=== PATIENT | male | born 1935 | race Caucasian/White ===

== ENCOUNTER → 2016-09-26 | Outpatient (CLI) | payer BC ==
[~2016-09-26] MED LIST: AMLO5TAB2 PO; FLM4 PO; GEMF600T3 PO; METO50TA7 PO; TELM80TA PO; ZNT/150 PO
[2016-09-26 11:04] LABS: BASO % 0.5 %; BASO ABS # 0.03 K/uL (0-0.2); COMPLETE YES; EOS % 3.3 %; HEMATOCRIT 39.9 % (42-52); IG% 0.3 %; LYMPH % 15.3 %; LYMPH ABS # 0.88 K/uL (1.2-3.4); MEAN CELL VOLUME 82.8 fL (80-100); MEAN CORPUSCULAR HEMOGLOBIN 28.8 pg (25-34); MEAN CORPUSCULAR HGB CONC 34.8 g/dl (32-36); MEAN PLATELET VOLUME 9.6 fL (7.4-10.4); MONO % 13.7 %; NEUT % 66.9 %; PLATELET COUNT 308 K/uL (130-400); RED BLOOD COUNT 4.82 M/uL (4.7-6.1); WHITE BLOOD COUNT 5.76 K/uL (4.8-10.8)
[2016-09-26 11:21] LABS: ESTIMATED AVERAGE GLUCOSE 137 mg/dl; HA1C FLAG Normal (Normal)
[2016-09-26 11:38] LABS: ALT/SGPT 16 U/L (12-78); BLOOD UREA NITROGEN 27 mg/dl (7-18); BUN/CREATININE RATIO 24.8 (10-20); CALCIUM 9.3 mg/dl (8.5-10.1); CARBON DIOXIDE 22 mmol/L (21-32); CHLORIDE 111 mmol/L (98-107); CHOLESTEROL 178 mg/dl (0-200); GLUCOSE 108 mg/dl (70-99); POTASSIUM 3.9 mmol/L (3.5-5.1); SODIUM 143 mmol/L (136-145); TRIGLYCERIDES 83 mg/dl (0-150); VERY LOW DENSITY LIPOPROT CALC 17 mg/dl
[2016-09-26 11:41] LABS: ALKALINE PHOSPHATASE 87 U/L (45-117); AST/SGOT 10 U/L (15-37); CHOLESTEROL/HDL RATIO 4.7; FERRITIN 173.7 ng/ml (8.0-388.0); HDL CHOLESTEROL 38 mg/dl; LDL CHOLESTEROL CALCULATED 123 mg/dl
== END | disposition home or self-care (01) ==
LOC: C.LAB1850 10:12
PROVIDERS: ATTEND Internal Medicine
DX: E78.5 Hyperlipidemia, unspecified (principal); L50.1 Idiopathic urticaria; E11.65 Type 2 diabetes mellitus with hyperglycemia

== ENCOUNTER → 2017-03-26 | Outpatient (CLI) | payer BC ==
[2017-03-26 12:35] LABS: ALT/SGPT 40 U/L (12-78); AST/SGOT 16 U/L (15-37); BLOOD UREA NITROGEN 24 mg/dl (7-18); CALCIUM 9.2 mg/dl (8.5-10.1); CARBON DIOXIDE 23 mmol/L (21-32); CHLORIDE 111 mmol/L (98-107); CHOLESTEROL 209 mg/dl (0-200); GLUCOSE 119 mg/dl (70-99); POTASSIUM 3.8 mmol/L (3.5-5.1); SODIUM 143 mmol/L (136-145)
[2017-03-26 12:40] LABS: CHOLESTEROL/HDL RATIO 5.4; HDL CHOLESTEROL 39 mg/dl; LDL CHOLESTEROL CALCULATED 150 mg/dl; PROSTATE SPECIFIC ANTIGEN < 0.010 ng/ml (0.000-4.000); TRIGLYCERIDES 100 mg/dl (0-150); VERY LOW DENSITY LIPOPROT CALC 20 mg/dl
[2017-03-26 12:49] LABS: ESTIMATED AVERAGE GLUCOSE 143 mg/dl; HA1C FLAG Normal (Normal)
[2017-03-26 13:39] LABS: RATIO 37.7 mcg/mg (0-30.0)
== END | disposition home or self-care (01) ==
LOC: C.LAB1850 10:10
PROVIDERS: ATTEND Internal Medicine
DX: E11.9 Type 2 diabetes mellitus without complications (principal); E78.5 Hyperlipidemia, unspecified; C61 Malignant neoplasm of prostate

== ENCOUNTER → 2017-09-30 | Outpatient (CLI) | payer BC ==
[2017-09-30 10:31] LABS: HEMOGLOBIN A1C 6.4 % (4.5-5.6)
[2017-09-30 10:51] LABS: ALT/SGPT 22 U/L (12-78); AST/SGOT 17 U/L (15-37); BLOOD UREA NITROGEN 21 mg/dl (7-18); CALCIUM 9.1 mg/dl (8.5-10.1); CARBON DIOXIDE 25 mmol/L (21-32); CHOLESTEROL 198 mg/dl (0-200); CREATININE 1.02 mg/dl (0.60-1.40); GLUCOSE 123 mg/dl (70-99); POTASSIUM 3.8 mmol/L (3.5-5.1); SODIUM 142 mmol/L (136-145)
[2017-09-30 10:54] LABS: LDL CHOLESTEROL CALCULATED 143 mg/dl
== END | disposition home or self-care (01) ==
LOC: C.LAB1850 09:36
PROVIDERS: ATTEND Internal Medicine
DX: E11.9 Type 2 diabetes mellitus without complications (principal); E78.5 Hyperlipidemia, unspecified

== ENCOUNTER → 2018-04-01 | Outpatient (CLI) | payer BC ==
[~2018-04-01] MED LIST changes: -METO50TA7 PO; +METO50TA8 PO
[2018-04-01 12:39] LABS: ALT/SGPT 22 U/L (12-78); AST/SGOT 15 U/L (15-37); BLOOD UREA NITROGEN 22 mg/dl (7-18); CALCIUM 9.3 mg/dl (8.5-10.1); CARBON DIOXIDE 28 mmol/L (21-32); CHOLESTEROL 205 mg/dl (0-200); CREATININE 1.18 mg/dl (0.60-1.40); GLUCOSE 133 mg/dl (70-99); LDL CHOLESTEROL CALCULATED 148 mg/dl; POTASSIUM 3.9 mmol/L (3.5-5.1); SODIUM 141 mmol/L (136-145)
[2018-04-01 12:42] LABS: HEMOGLOBIN A1C 6.9 % (4.5-5.6)
== END | disposition home or self-care (01) ==
LOC: C.LAB1850 10:25
PROVIDERS: ATTEND Internal Medicine
DX: E78.5 Hyperlipidemia, unspecified (principal); E11.9 Type 2 diabetes mellitus without complications; R39.9 Unspecified symptoms and signs involving the genitourinary system

== ENCOUNTER 2022-07-27 11:10 | Inpatient (IN) ==
[2022-07-27 11:44] LABS: Basophils # (auto) 0.03 K/uL (0-0.2); Basophils % (auto) 0.4 %; Eosinophils # (auto) 0.12 K/uL (0-0.50); Eosinophils % (auto) 1.6 %; Hematocrit (blood only) 40.9 % (40.1-51.0); Hemoglobin 14.1 g/dl (14.0-18.0); Immature Granulocytes # (auto) 0.01 K/uL (0.00-0.02); Immature Granulocytes % (auto) 0.1 %; Lymphocytes # (auto) 1.32 K/uL (1.2-3.4); Lymphocytes % (auto) 17.9 %; Mean Corpuscular Hemoglobin 30.8 pg (25.0-34.0); Mean Corpuscular Hgb Conc 34.5 g/dL (32.0-36.0); Mean Corpuscular Volume 89.3 fL (80.0-100.0); Mean Platelet Volume 10.2 fL (9.4-12.4); Monocytes # (auto) 0.91 K/uL (0.24-0.82); Monocytes % (auto) 12.3 %; Neutrophils % (auto) 67.7 %; Platelet Count 286 K/uL (130-400); RDW Standard Deviation 42.5 fL (36.4-46.3); Red Blood Count 4.58 M/uL (4.63-6.08); White Blood Count 7.39 K/ul (4.8-10.8)
[2022-07-27 11:44] LABS: iSTAT Creatinine 1.2 mg/dl (0.6-1.3); iSTAT Hemoglobin 14.3 g/dl (14.0-18.0); iSTAT Ionized Calcium 1.22 mmol/l (1.12-1.32); iSTAT Potassium 3.8 mmol/L (3.3-5.0)
--- NOTE | 2022-07-27 11:49 | Emergency Department Note ---
History of Present Illness General Chief complaint: Stroke/CVA Symptoms Stated complaint: SLURRED SPEACH, WEAKNESS IN RIGHT ARM, Time Seen by Provider: 07/27/22 11:25 History of Present Illness 86-year-old male presents to the ED with a chief complaint of slurred speech and right-sided facial droop. The patient presents with his female friend. She does not live with him. She states that she first noticed that he was slurring speech on . Today she met with him and noticed that he seemed to be slurring his speech more and she noticed a right-sided facial droop. He also went to he bit his tongue. The patient seemed a little uncoordinated with his right arm as well, per the friend. The patient states that he has been getting around the house okay. He lives alone. He denies falling or walking into [place]. Denies any visual changes. No additional complaints this time Home Medications Medication Instructions Recorded Confirmed Type cholecalciferol (vitamin D3) 125 125 mcg PO DAILY 10/25/21 02/03/22 History mcg (5,000 unit) tablet (Vitamin D3) trospium 20 mg tablet 20 mg PO BID #180 tabs 04/15/22 Rx amlodipine 5 mg tablet 5 mg PO QAM #90 tabs 07/07/22 Rx gemfibrozil 600 mg tablet 600 mg PO BID #180 tabs 07/07/22 Rx metoprolol tartrate 50 mg tablet 50 mg PO BID #180 tabs 07/07/22 Rx telmisartan 80 mg tablet 80 mg PO QAM #90 tabs 07/07/22 Rx tamsulosin 0.4 mg capsule 0.4 mg PO QAM 07/27/22 07/27/22 History vitamin B12 0.5 mg-folic acid 1 mg 1 tab PO DAILY 07/27/22 07/27/22 History tablet Allergies Allergy/AdvReac Type Severity Reaction Status Date / Time clopidogrel Allergy Intermediate HIVES Verified 02/03/22 10:20 Iodinated Contrast Media Allergy Intermediate HIVES Verified 02/03/22 10:20 HMG-CoA-R Inhibitors Allergy Unknown PT NOT SURE Uncoded 02/03/22 10:20 Past Med/Surg History Medical History Elevated hemoglobin A1c 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 Urinary symptom or sign Surgical History History of colonoscopy History of coronary artery stent placement EARLY History of left cataract extraction History of prostate surgery History of tonsillectomy S/P hernia repair HX MULTIPLE Family History Father Myocardial infarction Diabetes Heart disease Hypertension Mother Pancreatic cancer Sister Poliomyelitis Denies family history of Colon cancer Ovarian cancer Prostate cancer Breast cancer Social History Smoking Status: Never smoker Second Hand Exposure: No; Hx Alcohol Use: Yes (RARE) Alcohol type: beer Hx Substance Use: No Preferred Language: Telugu Communication Ability: Effective Visual Impairment: No Limitations Hearing Ability: Normal Utility Sales Representative Required: No Beliefs That Will Affect Care: None marital status: Single Current Living Situation: Alone current occupational status: retired Feels Safe at Home: Yes Childhood Exposure to Second-Hand Smoke: Yes Dental Care, Regularly: Yes Physical Activity Frequency: 3-4 Times per Week Seatbelt Use: always Sunscreen Use: No Assistive Devices: Glasses Review of Systems A total of 10 systems reviewed and were otherwise negative Physical Exam Vital Signs Vital Signs - 24 hr 07/27/22 11:14 07/27/22 12:01 07/27/22 12:12 Temperature 36.4 C L Temperature Source Oral Pulse Rate 83 Pulse Rate [Apical] 83 Pulse Rate from SpO2 Sensor Pulse Rhythm Regular Pulse Strength Normal Respiratory Rate 16 19 Respiratory Effort / Characteristics Non-Labored Spontaneous Respiratory Depth Normal Respiratory Pattern Regular Blood Pressure 176/97 H Blood Pressure [Left Arm] 164/104 H Blood Pressure Mean 123 Blood Pressure Mean [Left Arm] 124 Blood Pressure Position Sitting Pulse Oximetry 94 93 Oxygen Delivery Method Room Air Room Air Room Air Sepsis Recent Fever Within 48 Hours No Sepsis New/Unexplained Change in Mental Status No Sepsis Action Taken by Nursing No Action Required 07/27/22 11:26 07/27/22 11:26 07/27/22 11:30 Temperature Temperature Source Pulse Rate 86 86 Pulse Rate [Apical] Pulse Rate from SpO2 Sensor Pulse Rhythm Pulse Strength Respiratory Rate 20 25 H Respiratory Effort / Characteristics Respiratory Depth Respiratory Pattern Blood Pressure 177/120 H Blood Pressure [Left Arm] Blood Pressure Mean 139 Blood Pressure Mean [Left Arm] Blood Pressure Position Pulse Oximetry Oxygen Delivery Method Sepsis Recent Fever Within 48 Hours Sepsis New/Unexplained Change in Mental Status Sepsis Action Taken by Nursing 07/27/22 11:58 07/27/22 12:15 07/27/22 12:15 Temperature Temperature Source Pulse Rate 80 Pulse Rate [Apical] Pulse Rate from SpO2 Sensor 83 Pulse Rhythm Pulse Strength Respiratory Rate 16 19 Respiratory Effort / Characteristics Respiratory Depth Respiratory Pattern Blood Pressure 158/94 H Blood Pressure [Left Arm] Blood Pressure Mean 115 Blood Pressure Mean [Left Arm] Blood Pressure Position Pulse Oximetry 95 Oxygen Delivery Method Room Air Sepsis Recent Fever Within 48 Hours Sepsis New/Unexplained Change in Mental Status Sepsis Action Taken by Nursing CONSTITUTIONAL/VITAL SIGNS: Reviewed / noted above. GENERAL: Non-toxic in appearance. INTEGUMENTARY: Warm, dry, and [place]. HEAD: Normocephalic. EYES: without scleral icterus or trauma. ENT/OROPHARYNX: clear and moist. Contusion to the right side of tongue. LYMPHADENOPATHY/NECK: Is supple without lymphadenopathy or meningismus. RESPIRATORY: Clear to auscultation bilaterally. No increased work of breathing. CARDIOVASCULAR: Regular rate and irregular rhythm. GI/ABDOMEN: Soft and nontender. No organomegaly or pulsatile mass. EXTREMITIES: Warm and well perfused. BACK: No CVA tenderness. NEUROLOGICAL: Intact without focal deficits with exception of the right lower facial droop. PSYCHIATRIC: normal affect. MUSCULOSKELETAL: Normally developed with good muscle tone. TRIAGE NURSING DOCUMENTATION REVIEWED. Course Administered Medications Discontinued Medications Ioversol (Optiray 320 500ml) 120 ml IV ONCE ONE Stop: 07/27/22 11:55 Last Admin: 07/27/22 11:54 Dose: 120 ml Documented By: JHOAN Critical Care Time Critical Care Time: Yes Total Critical Care Time: 30 I have personally spent 30 minutes of critical care time in the direct management of this patient. This includes bedside care, interpretation of diagnostic studies, and testing, discussion with consultants, patient, and family members, and other required patient management activities. This 30 minutes is in excess of all separately billable procedures. Medical Decision Making Differential Diagnosis Differential includes acute coronary syndrome, myocardial infarction, CVA, TIA, anemia, infection, pneumonia, UTI, pyelonephritis, poor nutrition, dehydration, electrolyte disturbance,hypoglycemia. Medical Records Attestation: I reviewed the patient's medical records. Home Medications Current Medication List: was personally reviewed by me Laboratory Data Attestation: I reviewed the patient's lab results. Result diagrams: 07/27/22 11:29 07/27/22 11:29 Lab Results 07/27/22 07/27/22 07/27/22 Range/Units 11:24 11:29 11:29 WBC 7.39 (4.8-10.8) K/ul RBC 4.58 L (4.63-6.08) M/uL Hgb 14.1 (14.0-18.0) g/dl POC Hgb (14.0-18.0) g/dl Hct 40.9 (40.1-51.0) % POC Hct (42-52) % MCV 89.3 (80.0-100.0) fL MCH 30.8 (25.0-34.0) pg MCHC 34.5 (32.0-36.0) g/dL RDW Std Deviation 42.5 (36.4-46.3) fL RDW Coeff of Macho 13.0 (11.5-14.5) % Plt Count 286 (130-400) K/uL MPV 10.2 (9.4-12.4) fL Immature Gran % (Auto) 0.1 % Neut % (Auto) 67.7 % Lymph % (Auto) 17.9 % [place] % (Auto) 12.3 % Eos % (Auto) 1.6 % Baso % (Auto) 0.4 % Neut # (Auto) 5.00 (1.4-6.5) K/uL Lymph # (Auto) 1.32 (1.2-3.4) K/uL [place] # (Auto) 0.91 H (0.24-0.82) K/uL Eos # (Auto) 0.12 (0-0.50) K/uL Baso # (Auto) 0.03 (0-0.2) K/uL Immature Gran # (Auto) 0.01 (0.00-0.02) K/uL PT 10.9 (9.0-12.0) Seconds INR 1.0 (0.9-1.1) APTT 23.0 (21.0-31.0) Seconds PTT Ratio 0.8 POC Sodium (135-144) mmol/L Sodium (136-145) mmol/L POC Potassium (3.3-5.0) mmol/L Potassium (3.5-5.1) mmol/L POC Chloride (101-112) mmol/L Chloride (98-107) mmol/L Carbon Dioxide (21-32) mmol/L POC Total CO2 (24-31) mmol/L Anion Gap (3-11) POC Anion Gap (16-25) mmol/L POC BUN (7-18) mg/dl BUN (6-23) mg/dl Creatinine (0.6-1.4) mg/dl POC Creatinine (0.6-1.3) mg/dl Est Cr Clr Drug Dosing Est GFR ( Amer) ml/min Est GFR (Non-Af Amer) ml/min BUN/Creatinine Ratio (10-20) Glucose (70-99(Fasting)) mg/dl POC Glucose 166 H (70-99) mg/dl POC Glucose (other) (70-99) mg/dl Calcium (8.5-10.1) mg/dl POC Ioniz Calcium Ashley (1.12-1.32) mmol/l Magnesium (1.7-2.4) mg/dl Total Bilirubin (0.2-1.0) mg/dl AST (13-39) U/L ALT (7-52) U/L Alkaline Phosphatase (34-104) U/L Troponin I High Sens (0-20) pg/ml Total Protein (6.0-8.3) gm/dl Albumin (3.4-5.0) gm/dl Globulin (2.5-4.0) gm/dl Albumin/Globulin Ratio (0.9-2) 07/27/22 07/27/22 Range/Units 11:29 11:32 WBC (4.8-10.8) K/ul RBC (4.63-6.08) M/uL Hgb (14.0-18.0) g/dl POC Hgb 14.3 (14.0-18.0) g/dl Hct (40.1-51.0) % POC Hct 42 (42-52) % MCV (80.0-100.0) fL MCH (25.0-34.0) pg MCHC (32.0-36.0) g/dL RDW Std Deviation (36.4-46.3) fL RDW Coeff of Macho (11.5-14.5) % Plt Count (130-400) K/uL MPV (9.4-12.4) fL Immature Gran % (Auto) % Neut % (Auto) % Lymph % (Auto) % [place] % (Auto) % Eos % (Auto) % Baso % (Auto) % Neut # (Auto) (1.4-6.5) K/uL Lymph # (Auto) (1.2-3.4) K/uL [place] # (Auto) (0.24-0.82) K/uL Eos # (Auto) (0-0.50) K/uL Baso # (Auto) (0-0.2) K/uL Immature Gran # (Auto) (0.00-0.02) K/uL PT (9.0-12.0) Seconds INR (0.9-1.1) APTT (21.0-31.0) Seconds PTT Ratio POC Sodium 141 (135-144) mmol/L Sodium 140 (136-145) mmol/L POC Potassium 3.8 (3.3-5.0) mmol/L Potassium 3.9 (3.5-5.1) mmol/L POC Chloride 105 (101-112) mmol/L Chloride 106 (98-107) mmol/L Carbon Dioxide 25 (21-32) mmol/L POC Total CO2 23 L (24-31) mmol/L Anion Gap 9 (3-11) POC Anion Gap 17.0 (16-25) mmol/L POC BUN 26 H (7-18) mg/dl BUN 27 H (6-23) mg/dl Creatinine 1.19 (0.6-1.4) mg/dl POC Creatinine 1.2 (0.6-1.3) mg/dl Est Cr Clr Drug Dosing Not Reportable Est GFR ( Amer) 64.6 ml/min Est GFR (Non-Af Amer) 55.8 ml/min BUN/Creatinine Ratio 22.7 H (10-20) Glucose 164 H (70-99(Fasting)) mg/dl POC Glucose (70-99) mg/dl POC Glucose (other) 167 H (70-99) mg/dl Calcium 9.4 (8.5-10.1) mg/dl POC Ioniz Calcium Ashley 1.22 (1.12-1.32) mmol/l Magnesium 1.9 (1.7-2.4) mg/dl Total Bilirubin 0.8 (0.2-1.0) mg/dl AST 20 (13-39) U/L ALT 13 (7-52) U/L Alkaline Phosphatase 46 (34-104) U/L Troponin I High Sens 1792.0 H* (0-20) pg/ml Total Protein 6.8 (6.0-8.3) gm/dl Albumin 4.3 (3.4-5.0) gm/dl Globulin 2.5 (2.5-4.0) gm/dl Albumin/Globulin Ratio 1.7 (0.9-2) Imaging Data Radiologist's Impression: Chest X-Ray 07/27/22 11:26 XR chest 1V portable CLINICAL HISTORY: Stroke Like Symptoms TECHNIQUE: Single frontal radiograph of the chest was obtained. Comparison: None available at the time of this dictation. FINDINGS: No lines and tubes are seen. Calcified aortic knob is seen. The lungs are clear. No evidence of pleural effusion or pneumothorax. IMPRESSION: No acute chest disease. ACT 112: Negative or not required by law. Electronically signed by: Rc Hill M.D. 07/27/2022 12:[address] 07/27/22 11:26 CT angio neck with con, CT angio head w con, CT head/brain wo con CLINICAL HISTORY: Stroke Like Symptoms TECHNIQUE: Contiguous axial CT images of the head were acquired from the base of the skull to the vertex without intravenous contrast administration. CT angiography of the head and neck was performed following intravenous administr ation of iodinated contrast. Coronal and sagittal MIPS were obtained from the axial data set and were submitted for review. Automated dose lowering techniques and/or adjustment according to patient size were utilized for this examination. All measurements were calculated based on NASCET criteria. CT DOSE: 1269.26 mGy.cm Comparison: None available at the time of this dictation. FINDINGS: CT head: There is no acute intracranial hemorrhage or evidence of acute territorial infarction. No shift of the midline structures, mass effect, or extra-axial abnormalities are shown. Lungs and soft tissues are unremarkable. CTA Neck: A 3 vessel aortic arch is shown. There is no significant atherosclerotic plaque in the aortic arch or the origins of the innominate, left common carotid, and left subclavian arteries. There is mild calcified ath erosclerotic plaque at the bifurcation of the bilateral common carotid arteries without hemodynamically significant flow stenosis. There is no dissection present. No hemodynamically significant stenosis is seen at the origin of vertebral arteries. The left vertebral artery is dominant. CTA Head: The anterior and posterior cerebral circulations are patent. Multifocal stenosis of the vertebral arteries are seen, left greater than right, which however do not appear to be hemodynamically significant. There is atherosclerosis of the carotid siphons and narrowing of the right supraclinoid carotid artery. IMPRESSION: 1. No acute intracranial hemorrhage, evidence of acute territorial infarction, or other acute intracranial disease process. 2. No occlusion, hemodynamically significant stenosis, or dissection in the major cervical arteries. 3. 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 There is narrowing of the right supraclinoid internal carotid artery which may represent borderline hemodynamic stenosis. Assessment of stenosis of the internal carotid arteries is based on NASCET criteria. ACT 112: Negative or not required by law. Electronically signed by: Rc Hill M.D. 07/27/2022 12:16 PM Head CTA 07/27/22 11:38 CT angio neck with con, CT angio head w con, CT head/brain wo con CLINICAL HISTORY: Stroke Like Symptoms TECHNIQUE: Contiguous axial CT images of the head were acquired from the base of the skull to the vertex without intravenous contrast administration. CT angiography of the head and neck was performed following intravenous administra tion of iodinated contrast. Coronal and sagittal MIPS were obtained from the axial data set and were submitted for review. Automated dose lowering techniques and/or adjustment according to patient size were utilized for this examination. All measurements were calculated based on NASCET criteria. CT DOSE: 1269.26 mGy.cm Comparison: None available at the time of this dictation. FINDINGS: CT head: There is no acute intracranial hemorrhage or evidence of acute territorial infarction. No shift of the midline structures, mass effect, or extra-axial abnormalities are shown. Lungs and soft tissues are unremarkable. CTA Neck: A 3 vessel aortic arch is shown. There is no significant atherosclerotic plaque in the aortic arch or the origins of the innominate, left common carotid, and left subclavian arteries. There is mild calcified athe rosclerotic plaque at the bifurcation of the bilateral common carotid arteries without hemodynamically significant flow stenosis. There is no dissection present. No hemodynamically significant stenosis is seen at the origin of vertebral arteries. The left vertebral artery is dominant. CTA Head: The anterior and posterior cerebral circulations are patent. Multifocal stenosis of the vertebral arteries are seen, left greater than right, which however do not appear to be hemodynamically significant. There is atherosclerosis of the carotid siphons and narrowing of the right supraclinoid carotid artery. IMPRESSION: 1. No acute intracranial hemorrhage, evidence of acute territorial infarction, or other acute intracranial disease process. 2. No occlusion, hemodynamically significant stenosis, or dissection in the major cervical arteries. 3. 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 There is narrowing of the right supraclinoid internal carotid artery which may represent borderline hemodynamic stenosis. Assessment of stenosis of the internal carotid arteries is based on NASCET criteria. ACT 112: Negative or not required by law. Electronically signed by: Rc Hill M.D. 07/27/2022 12:16 PM Neck CTA 07/27/22 11:38 CT angio neck with con, CT angio head w con, CT head/brain wo con CLINICAL HISTORY: Stroke Like Symptoms TECHNIQUE: Contiguous axial CT images of the head were acquired from the base of the skull to the vertex without intravenous contrast administration. CT angiography of the head and neck was performed following intravenous administrat ion of iodinated contrast. Coronal and sagittal MIPS were obtained from the axial data set and were submitted for review. Automated dose lowering techniques and/or adjustment according to patient size were utilized for this examination. All measurements were calculated based on NASCET criteria. CT DOSE: 1269.26 mGy.cm Comparison: None available at the time of this dictation. FINDINGS: CT head: There is no acute intracranial hemorrhage or evidence of acute territorial infarction. No shift of the midline structures, mass effect, or extra-axial abnormalities are shown. Lungs and soft tissues are unremarkable. CTA Neck: A 3 vessel aortic arch is shown. There is no significant atherosclerotic plaque in the aortic arch or the origins of the innominate, left common carotid, and left subclavian arteries. There is mild calcified ather osclerotic plaque at the bifurcation of the bilateral common carotid arteries without hemodynamically significant flow stenosis. There is no dissection present. No hemodynamically significant stenosis is seen at the origin of vertebral arteries. The left vertebral artery is dominant. CTA Head: The anterior and posterior cerebral circulations are patent. Multifocal stenosis of the vertebral arteries are seen, left greater than right, which however do not appear to be hemodynamically significant. There is atherosclerosis of the carotid siphons and narrowing of the right supraclinoid carotid artery. IMPRESSION: 1. No acute intracranial hemorrhage, evidence of acute territorial infarction, or other acute intracranial disease process. 2. No occlusion, hemodynamically significant stenosis, or dissection in the major cervical arteries. 3. 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 There is narrowing of the right supraclinoid internal carotid artery which may represent borderline hemodynamic stenosis. Assessment of stenosis of the internal carotid arteries is based on NASCET criteria. ACT 112: Negative or not required by law. Electronically signed by: Rc Hill M.D. 07/27/2022 12:16 PM ECG Data Attestation: I personally reviewed and interpreted this ECG as follows: Additional Comments: Twelve-lead EKG: Per my interpretation shows atrial fibrillation at a rate of 86 with a PVC. No ST elevation. Normal QTC MDM Narrative 86-year-old male presents with right-sided facial droop and slurred speech as well as a contusion to the right tongue. Symptoms started likely on . Patient has a twelve-lead EKG that shows A. fib. He denies any history of such. Does not take any anticoagulation. Normally does not take aspirin but did take an aspirin recently today. CT scan of the brain without contrast and CT angiogram of the head and neck did not show any significant abnormalities. Troponin is elevated. No acute ST elevations on EKG and no chest pains to report. The patient was started on IV heparin here. He will be seen by the hospitalist for further evaluation and care. He did take aspirin this morning. Impression & Plan Acute CVA (cerebrovascular accident), Atrial fibrillation, new onset, Elevated troponin Discharge Plan Visit Data Chief Complaint: Stroke/CVA Symptoms Stated Complaint: SLURRED SPEACH, WEAKNESS IN RIGHT ARM, ED Provider: Riaz Peck Discharge Problem: Acute CVA (cerebrovascular accident), Atrial fibrillation, new onset, Elevated troponin Patient Disposition: Being Evaluated by Hospitalist Forms Stand Alone Forms: My [facility] [employer] Prescriptions Prescriptions: No Action trospium 20 mg tablet 20 mg PO BID Qty: 180 3RF amlodipine 5 mg tablet 5 mg PO QAM Qty: 90 3RF gemfibrozil 600 mg tablet 600 mg PO BID Qty: 180 3RF metoprolol tartrate 50 mg tablet 50 mg PO BID Qty: 180 3RF telmisartan 80 mg tablet 80 mg PO QAM Qty: 90 2RF Gemtesa 75 mg tablet 75 mg PO DAILY Qty: 90 3RF cholecalciferol (vitamin D3) [Vitamin D3] 125 mcg (5,000 unit) Tablet 125 mcg PO DAILY Referrals Referrals: ProDon MD [Primary Care Provider] -
[2022-07-27] MEDS ORDERED: OPTIRAY 320 500ml IV ONE (11:54)
[2022-07-27 11:55] LABS: Partial Thromboplastin Ratio 0.8; Prothrombin Time 10.9 Seconds (9.0-12.0)
[2022-07-27 12:04] LABS: Alanine Aminotransferase 13 U/L (7-52); Albumin Globulin Ratio 1.7 (0.9-2); Albumin Level 4.3 gm/dl (3.4-5.0); Alkaline Phosphatase 46 U/L (34-104); Anion Gap 9 (3-11); Aspartate Aminotransferase 20 U/L (13-39); BUN Creatinine Ratio 22.7 (10-20); Bilirubin,Total 0.8 mg/dl (0.2-1.0); Blood Urea Nitrogen 27 mg/dl (6-23); Calcium 9.4 mg/dl (8.5-10.1); Carbon Dioxide 25 mmol/L (21-32); Chloride 106 mmol/L (98-107); Est GFR (African American) 64.6 ml/min; Est GFR (Non-African American) 55.8 ml/min; Globulin 2.5 gm/dl (2.5-4.0); Glucose 164 mg/dl (70-99(Fasting)); Magnesium 1.9 mg/dl (1.7-2.4); Potassium 3.9 mmol/L (3.5-5.1); Sodium 140 mmol/L (136-145); Total Protein 6.8 gm/dl (6.0-8.3)
--- NOTE | 2022-07-27 12:10 | Electrocardiogram Report ---
Test Reason : Blood Pressure : / mmHG Vent. Rate : 086 BPM Atrial Rate : 104 BPM P-R Int : 000 ms QRS Dur : 098 ms QT Int : 336 ms P-R-T Axes : 000 000 133 degrees QTc Int : 402 ms Atrial fibrillation with premature ventricular or aberrantly conducted complexes Minimal voltage criteria for LVH, may be normal variant Poor R wave progression, consider anterior TX vs. lead placement vs. LVH Diffuse Nonspecific T wave abnormality Abnormal ECG When compared with ECG of 29-OCT-2006 09:50, Sinus rhythm no longer present HR has increased by 30 bpm Diffuse Nonspecific T wave abnormality now present Confirmed by Sonido Berrios ([id number]) on 07/27/2022 12:09:32 PM Referred By: REFERRED SELF Confirmed By:Sonido Berrios
--- NOTE | 2022-07-27 12:18 | CT Scan Report ---
CT angio neck with con, CT angio head w con, CT head/brain wo con CLINICAL HISTORY: Stroke Like Symptoms TECHNIQUE: Contiguous axial CT images of the head were acquired from the base of the skull to the pamela stefany without intravenous contrast administration. CT angiography of the head and neck was performed f ollowing intravenous administration of iodinated contrast. Coronal and sagittal MIPS were obtained fr om the axial data set and were submitted for review. Automated dose lowering techniques and/or adjus tment according to patient size were utilized for this examination. All measurements were calculated based on NASCET criteria. CT DOSE: 1269.26 mGy.cm Comparison: None available at the time of this dictation. FINDINGS: CT head: There is no acute intracranial hemorrhage or evidence of acute territorial infarction. No sh ift of the midline structures, mass effect, or extra-axial abnormalities are shown. Lungs and soft tissues are unremarkable. CTA Neck: A 3 vessel aortic arch is shown. There is no significant atherosclerotic plaque in the aor tic arch or the origins of the innominate, left common carotid, and left subclavian arteries. There is mild calcified atherosclerotic plaque at the bifurcation of the bilateral common carotid arteries without hemodynamically significant flow stenosis. There is no dissection present. No hemodynamicall y significant stenosis is seen at the origin of vertebral arteries. The left vertebral artery is desirae nant. CTA Head: The anterior and posterior cerebral circulations are patent. Multifocal stenosis of the ve rtebral arteries are seen, left greater than right, which however do not appear to be hemodynamically significant. There is atherosclerosis of the carotid siphons and narrowing of the right supraclinoid carotid artery. IMPRESSION: 1. No acute intracranial hemorrhage, evidence of acute territorial infarction, or other acute intrac ranial disease process. 2. No occlusion, hemodynamically significant stenosis, or dissection in the major cervical arteries. 3. 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 There is narrowing of the right supraclinoid interna l carotid artery which may represent borderline hemodynamic stenosis. Assessment of stenosis of the internal carotid arteries is based on NASCET criteria. ACT 112: Negative or not required by law. Electronically signed by: Rc Hill M.D. 07/27/2022 12:16 PM
--- NOTE | 2022-07-27 12:22 | XRay Report ---
XR chest 1V portable CLINICAL HISTORY: Stroke Like Symptoms TECHNIQUE: Single frontal radiograph of the chest was obtained. Comparison: None available at the time of this dictation. FINDINGS: No lines and tubes are seen. Calcified aortic knob is seen. The lungs are clear. No evidence of pleur al effusion or pneumothorax. IMPRESSION: No acute chest disease. ACT 112: Negative or not required by law. Electronically signed by: Rc Hill M.D. 07/27/2022 12:21 PM
[2022-07-27] MEDS ORDERED: Heparin IV Adult Wt-Based Standard WITH Bolus Protocol IV STA (12:24)
--- NOTE | 2022-07-27 12:26 | History & Physical Report ---
Date of Service July 27, 2022 Assessment & Plan (1) Acute CVA (cerebrovascular accident): Plan: CVA, right-sided facial droop and improving initial right an/syq 13 nav/c2 operator weakness TNKase not indicated, symptom onset more than 48 hours before admission. Right an/syq 13 nav/c2 operator strength improving/improved at time of assessment. - CTA H/N: 1. No acute intracranial hemorrhage, evidence of acute territorial infarction, or other acute intracranial disease process. 2. No occlusion, hemo dynamically significant stenosis, or dissection in the major cervical arteries. 3. 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 There is narrowing of the right supraclinoid internal carotid artery which may represent borderline hemodynamic stenosis. CT-H: There is no acute intracranial hemorrhage or evidence of acute territorial infarction. No shift of the midline structures, mass effect, or extra-axial abnormalities are shown. - Prior stenosis ipsilateral to stroke sx, low suspicious for symptomatic carotid dz - CXR: No acute chest disease. Carotid Doppler 03/06/2022: Less than 50% stenosis of right and left ICA, greater than 50% stenosis of right external carotid. Anterograde flow bilaterally and vertebrals EKG: A. fib with PVCs, rate 86, QTc 402, T wave inversions in lateral leads w ithout ST segment changes Creatinine with normal baseline, 1.19 on admission - Pt allergic to plaavix (hives), but has tolerated aspirin. Took 2 full dose aspirin prior to admission. Resume aspirin 81 mg tomorrow New Onset Afib - [id number] 5 points. High risk. Recommend anticoagulation - COntinue metoprolol, rate controlled at admit - Echo pending with stroke eval as above - Pt is with symptom onset >48 hours before presentation. Started on heparin in ER. Will follow for bleeding overnight, transition to DOAC therapy 9 AM 07/28 if otherwise well - Risk of bleeding/hemmhoragic conversion vs risk of stroke discussed. Shared decision making patient agreeable to long-term anticoagulation Echo pending Elevated troponin Troponin is elevated to 1792 on admission, patient has had no clinical chest pain preceding this, and has no chest pain at time of assessment ? Demand in the setting of new A. fib EKG without ST segment changes, nonspecific lateral T wave inversions are pre sent Rate control, 500 cc NSS gentle support given for tacky mucous membranes and contracted BUN/creatinine ratio 22, trend troponin Echo pending Hypertension Continue amlodipine 5 mg daily Continue metoprolol 50 mg tartrate twice daily Continue telmisartan 80 mg p.o. every morning Type II DM Patient denies history of this in self, endorses in father. Chart does have a history of DM, glucose is 166 on admission A1c 6.7 01/30/2022 Diet controlled at home, will add basal bolus weight-based SSI while inpatient. Goal [id number] Overactive bladder Continue trospium, for background Hyperlipidemia Gemfibrozil 600 mg twice daily LDL previously less than 100, 139 02/02, repeat pending Patient is not sure if he has been statin intolerant in the past, reacted to Plavix but is not sure why he was recommended to be on this. Has discussed a statin trial as outpatient, is willing to try this with monitoring. 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 We will start atorvastatin 40 mg, if rash develops add methylprednisolone/Benadryl/cetirizine and discontinue statin Gemfibrozil discontinued given risk of reaction with switch to statin Disposition: Telemetry for stroke and cardiac eval Diet: Heart healthy, carb consistent once passed dysphagia screen CODE STATUS: Full code DVT prophylaxis: Anticoagulated (2) Elevated troponin: (3) Atrial fibrillation, new onset: (4) Radiation colitis: (5) Hyperglycemia: (6) Idiopathic urticaria: (7) Hypertension: History of Present Illness Primary Care Provider: Don Yeager MD Mario is an 86-year-old male with a past medical history of prostate cancer, radiation colitis, hypertension, type 2 diabetes mellitus, hyperglycemia, idiopathic urticaria who presented to [facility] as a stroke alert for slurred speech, right arm weakness. Patient has had speech slurring of approximately 2-3 days, was noticed by a friend who thinks his speech has been slurred more with a slight right-sided facial droop. Right upper arm coordination seems more poor than usual. Patient is outside of TNKase window. Mario is seen at the bedside with his friend and surrogate decision maker Abbey. He reports he feels he was in his usual state of health until last when he developed some difficulty speaking. Over and Thursday his speech continued to be off and seemed a little bit worse. Abbey also noticed that he had some right-sided facial droop. This continued into Thursday and Thursday and he noticed some poor coordination with his an/syq 13 nav/c2 operator and slightly reduced strength in his right arm without any numbness/tingling or sensory deficits. This prompted him to come to the ER for evaluation. During this timeframe he reports he has had some intermittent shortness of breath which does seem to be a little bit worse with exertion, but resolves with rest and which is not associated with any chest pain/chest pressure/palpitations. He has not been ill lately, and denies fever, chills, sweats, lightheadedness, dizziness, syncope, presyncope, nausea, vomiting, Dr. Caceres, constipation. He has not had any falls, and feels he is able to walk normally. He has no history of [place] or CVA, does have a history of hyperlipidemia and hypertension. He reports that he had an allergy to Plavix many years ago, but is not sure why he was prescribed Plavix in the first place. Does note that he has high blood pressure, but confirms he has never had a heart attack, stents, or stroke. He is able to tolerate aspirin and took 2 full dose aspirin before coming to the hospital this morning. He thinks that he may have had a reaction to a statin in the past but is not sure. He reports he takes gemfibrozil for lipids, and has been open to a statin trial but has not tried this as an outpatient. He is a former smoker, from age 17 until about 70s he was a 2 to 3 pack a day smoker. No tobacco use in the last decade. Does not use a vape or other tobacco products. Denies alcohol use. Denies recreational drug use. No history of diabetes or insulin use. Does have a family history of diabetes in his father which was cured with a pill and did not need insulin per patient. He did take his medications this morning Medical History: Reviewed Medications: Reviewed Surgical History: Reviewed Allergies: Reviewed Social History: As above, former smoker Code Status: Full Code Allergies Allergy/AdvReac Type Severity Reaction Status Date / Time clopidogrel Allergy Intermediate HIVES Verified 07/27/22 12:35 Iodinated Contrast Media Allergy Intermediate HIVES Verified 07/27/22 12:35 HMG-CoA-R Inhibitors Allergy Unknown PT NOT SURE Uncoded 07/27/22 12:35 Home Medications Medication Instructions Recorded Confirmed Type cholecalciferol (vitamin D3) 125 125 mcg PO DAILY 10/25/21 02/03/22 History mcg (5,000 unit) tablet (Vitamin D3) trospium 20 mg tablet 20 mg PO BID #180 tabs 04/15/22 Rx amlodipine 5 mg tablet 5 mg PO QAM #90 tabs 07/07/22 Rx gemfibrozil 600 mg tablet 600 mg PO BID #180 tabs 07/07/22 Rx metoprolol tartrate 50 mg tablet 50 mg PO BID #180 tabs 07/07/22 Rx telmisartan 80 mg tablet 80 mg PO QAM #90 tabs 07/07/22 Rx tamsulosin 0.4 mg capsule 0.4 mg PO QAM 07/27/22 07/27/22 History vitamin B12 0.5 mg-folic acid 1 mg 1 tab PO DAILY 07/27/22 07/27/22 History tablet Past Med/Surg History Medical History Elevated hemoglobin A1c History of idiopathic urticaria 3-4 YR AGO, HIVES FOR 1 YR - UNKNOWN ETIOLOGY- NO RE-OCCURENCE Hyperlipidemia Hypertension Overactive bladder Prostate cancer DX 2005 - HX RADIATION AND SEED IMPLANT Prostate cancer 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 Urinary symptom or sign Surgical History History of colonoscopy History of coronary artery stent placement EARLY History of left cataract extraction History of prostate surgery History of tonsillectomy S/P hernia repair HX MULTIPLE Family History Father Myocardial infarction Diabetes Heart disease Hypertension Mother Pancreatic cancer Sister Poliomyelitis Denies family history of Colon cancer Ovarian cancer Prostate cancer Breast cancer Social History (Updated 07/27/22 @ 12:50 by Gordy Alvarado MD) Smoking Status: Former smoker Age Started Using Tobacco: 17; Age Quit Using Tobacco: 72; packs per day: 2; Second Hand Exposure: No; Hx Alcohol Use: Yes (RARE) Alcohol type: beer Hx Substance Use: No Preferred Language: Turkish Communication Ability: Effective Visual Impairment: No Limitations Hearing Ability: Normal [place] [facility] Lab Technician Required: No Beliefs That Will Affect Care: None marital status: Single Current Living Situation: Alone current occupational status: retired Feels Safe at Home: Yes Childhood Exposure to Second-Hand Smoke: Yes Dental Care, Regularly: Yes Physical Activity Frequency: 3-4 Times per Week Seatbelt Use: always Sunscreen Use: No Assistive Devices: Glasses Review of Systems Review of Systems: All systems reviewed & are unremarkable except as noted in HPI & below Physical Exam Physical Exam: General: A&Ox3. NAD. Cooperative. HEENT: Atraumatic, normocephalic. Neuro exam as below. Pulm: CTAB A&P. -wheezes, -rales, -rhonchi. Symmetrical chest rise. No increased work of breathing. No respiratory distress. Cardiac: Irregularly irregular, -mrg. Radial pulses intact and symmetrical. Abdominal: Nontender, nondistended, soft. BS present. Ext: as below. 2+ edema bilaterally in lower extremities. CRANIAL NERVES: II: Pupils equal and reactive, no relative afferent pupillary defect, no VF cuts III, IV, : EOM intact, no gaze preference or deviation, no nystagmus. V: normal sensation in V1, V2, and V3 segments bilaterally VII: Right-sided facial droop is appreciated most prominent in the lip. VIII: normal hearing to speech IX, X: No uvular deviation. XI: 5/5 shoulder shrug XII: Tongue deviates to the right on attempted midline protrusion. Speech is with dysarthria, no receptive or expressive aphasia is appreciated. MOTOR: RUE: 5/5 Shoulder internal rotation, external rotation, flexion, extension, abduction, adduction 5/5 Elbow flexion/extension, wrist flexion/extension 4+/5 an/syq 13 nav/c2 operator strength, finger flexion/extension, interosseus LUE: 5/5 Shoulder internal rotation, external rotation, flexion, extension, abduction, adduction 5/5 Elbow flexion/extension, wrist flexion/extension 5/5 an/syq 13 nav/c2 operator strength, finger flexion/extension, interosseus RLE: 5/5 to hip flexion, ankle dorsiflexion/plantarflexion LLE: 5/5 to hip flexion, ankle dorsiflexion/plantarflexion REFLEXES: no clonus SENSORY: Normal to touch in upper and lower extremities without deficit or asymmetry COORD: Normal finger to nose bilat, no tremor, no dysmetria Results & Data Results & Data ([facility]) Vital Signs (Past 12 Hours) Vital Signs Temp Pulse Pulse Resp BP BP Pulse Ox 07/27/22 12:15 80 19 95 07/27/22 12:15 158/94 H 07/27/22 11:58 16 11/13/22 11:30 86 25 H 07/27/22 11:26 86 20 07/27/22 11:26 177/120 H 07/27/22 12:12 83 19 164/104 H 93 07/27/22 12:01 07/27/22 11:14 36.4 C L 83 16 176/97 H 94 O2 Del Method 07/27/22 12:15 Room Air 07/27/22 12:15 07/27/22 11:58 07/27/22 11:30 07/27/22 11:26 07/27/22 11:26 07/27/22 12:12 Room Air 07/27/22 12:01 Room Air 07/27/22 11:14 Room Air PG Care Time/CCT Total # of Minutes Spent Total Time Spent with Patient: Total time spent is greater than 50% in coordination of care (as documented) at patient's floor/unit and/or counseling patient: Coding Level of Care Code 68798 Initial Inpt Care Lvl 3 Diagnoses Acute CVA (cerebrovascular accident) I63.9 Elevated troponin R77.8 Atrial fibrillation, new onset I48.91 Radiation colitis K52.0 Hyperglycemia R73.9 Idiopathic urticaria L50.1 Hypertension I10
[2022-07-27] MEDS ORDERED: HEPARIN SOD (PORCINE) 1000 UNIT/ML IV ONE ×2 (12:39→13:00)
[2022-07-27] MEDS: HEPARIN SODIUM/DEXTROSE 25,000 UNITS/500 ML BAG IV SCH (13:09)
[2022-07-27] MEDS ORDERED: GLUCAGON FOR INJ 1 MG VIAL SQ PRN (15:39)
[2022-07-27] MEDS ORDERED: ACETAMINOPHEN 325 MG TAB PO PRN (15:39)
[2022-07-27] MEDS ORDERED: PHARMACIST DISCHARGE MED REC CONSULT PRN (15:39)
[2022-07-27] MEDS ORDERED: GLUCOSE 10 TAB/TUBE PO PRN (15:39)
[2022-07-27] MEDS ORDERED: CARBOHYDRATES FOR HYPOGLYCEMIA PO PRN (15:39)
[2022-07-27] MEDS ORDERED: LACTATED RINGER'S 1,000 ML IV SCH (15:39)
[2022-07-27] MEDS ORDERED: DEXTROSE 50% 50 ML SYRINGE IV PRN (15:39)
[2022-07-27] MEDS ORDERED: GLUCOSE 40% GEL 15 GM TUBE PO PRN (15:39)
[2022-07-27] MEDS: INSULIN ASPART PER UNIT SC SCH ×2 (16:20→21:48)
[2022-07-27] MEDS: CHOLECALCIFEROL 5,000 UNITS 125 MCG TAB PO SCH (20:10)
[2022-07-27] MEDS: METOPROLOL TARTRATE 50 MG TAB PO SCH (20:10)
[2022-07-27 20:49] LABS: Partial Thromboplastin Ratio 3.7
[2022-07-27 20:59] LABS: Partial Thromboplastin Time 100.9 Seconds (21.0-31.0)
[2022-07-28 04:01] LABS: Basophils # (auto) 0.04 K/uL (0-0.2); Basophils % (auto) 0.6 %; Eosinophils # (auto) 0.22 K/uL (0-0.50); Eosinophils % (auto) 3.4 %; Hematocrit (blood only) 38.6 % (40.1-51.0); Hemoglobin 13.6 g/dl (14.0-18.0); Immature Granulocytes # (auto) 0.01 K/uL (0.00-0.02); Immature Granulocytes % (auto) 0.2 %; Lymphocytes # (auto) 1.61 K/uL (1.2-3.4); Lymphocytes % (auto) 24.9 %; Mean Corpuscular Hemoglobin 31.1 pg (25.0-34.0); Mean Corpuscular Hgb Conc 35.2 g/dL (32.0-36.0); Mean Corpuscular Volume 88.3 fL (80.0-100.0); Mean Platelet Volume 10.4 fL (9.4-12.4); Monocytes # (auto) 1.03 K/uL (0.24-0.82); Monocytes % (auto) 15.9 %; Neutrophils # (auto) 3.55 K/uL (1.4-6.5); Platelet Count 250 K/uL (130-400); RDW Coefficient of Variation 13.1 % (11.5-14.5); RDW Standard Deviation 42.5 fL (36.4-46.3); Red Blood Count 4.37 M/uL (4.63-6.08); White Blood Count 6.46 K/ul (4.8-10.8)
[2022-07-28 05:04] LABS: Albumin Globulin Ratio 1.6 (0.9-2); Albumin Level 3.9 gm/dl (3.4-5.0); BUN Creatinine Ratio 21.9 (10-20); Bilirubin,Total 0.6 mg/dl (0.2-1.0); Calcium 8.9 mg/dl (8.5-10.1); Chol HDL Ratio 4.8 (0-5); Creatinine Clr Calc Pharmacy 59.1 ml/min; Est GFR (African American) 75.2 ml/min; Est GFR (Non-African American) 64.9 ml/min; Globulin 2.4 gm/dl (2.5-4.0); Potassium 3.3 mmol/L (3.5-5.1); Total Protein 6.3 gm/dl (6.0-8.3)
[2022-07-28 05:26] LABS: Partial Thromboplastin Ratio 2.3
[2022-07-28 05:40] LABS: Partial Thromboplastin Time 64.3 Seconds (21.0-31.0)
[2022-07-28 06:42] LABS: Estimated Average Glucose 140 mg/dl; Hemoglobin A1C 6.5 % (4.5-5.6)
[2022-07-28] MEDS: HEPARIN SODIUM/DEXTROSE 25,000 UNITS/500 ML BAG IV SCH ×2 (07:32→12:38)
--- NOTE | 2022-07-28 08:02 | Magnetic Resonance Report ---
Brain MRI WITHOUT CONTRAST HISTORY: Slurred speech. Right facial droop. TECHNIQUE: Multiplanar multisequence MRI of the brain was performed without the use of contrast. COMPARISON STUDY: Head CT 07/27/2022. FINDINGS: There is a small area of restricted diffusion within the left frontotemporal region consist ent with an acute distal left MCA territory infarct. The midline structures are intact. Mild atrophy and microvascular ischemic changes are noted. There is no mass, hematoma, midline shift. The major va scular flow-voids at the skull base are well-maintained. There is old left basal ganglia lacunar infa rct. Prior bilateral lens replacement. The paranasal sinuses and mastoid air cells are clear. IMPRESSION: A small area of restricted diffusion within the left frontotemporal region consistent with an acute d istal MCA territory infarct. ACT 112: Negative or not required by law. Electronically signed by: Joselito Weston M.D. 07/28/2022 8:00 AM
[2022-07-28] MEDS ORDERED: MAGNESIUM SULFATE / D5W 1 GM/100 ML BAG IV ONE (08:11)
[2022-07-28] MEDS ORDERED: POTASSIUM CHLORIDE CRTAB 20 MEQ TABCR PO STA (08:13)
--- NOTE | 2022-07-28 08:13 | Hospitalist Progress Note ---
Date of Service July 28, 2022 Assessment & Plan (1) Acute CVA (cerebrovascular accident): Plan: Pt is an 86 yo male with a PMH of prostate cancer, radiation colitis, HTN, type 2 diabetes mellitus, hyperglycemia, idiopathic urticaria who presented as a stroke alert for slurred speech and right arm weakness. 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 2. No occlusion, hemodynamically significant stenosis, or dissection in the major cervical arteries. 3. 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 There is narrowing of the right supraclinoid internal carotid artery which may represent borderline hemodynamic stenosis. CT-H: There is no acute intracranial hemorrhage or evidence of acute territorial infarction. No shift of the midline structures, mass effect, or extra-axial abnormalities are shown. - Prior stenosis ipsilateral to stroke sx, low suspicious for symptomatic carotid dz Carotid Doppler 03/06/2022: Less than 50% stenosis of right and left ICA, greater than 50% stenosis of right external carotid. Anterograde flow bilaterally and vertebrals EKG: Afib with PVCs, rate 86, QTc 402, T wave inversions in lateral leads without ST segment changes - Pt allergic to plavix (hives), but has tolerated aspirin. Took 2 full dose aspirin prior to admission. Resume aspirin 81 mg, - statin added 20mgs atorvastatin. - PT/OT recommending d/c to rehab New onset Afib - [id number] 5 points. High risk. Recommend anticoagulation - Continue metoprolol, rate controlled on admission - Echo showed EF 50-55% with mild inferior, posterior, and inferoapical hypokinesis - Pt is with symptom onset >48 hours before presentation. Started on heparin in ER. Continued heparin today - Risk of bleeding/hemorrhagic conversion vs risk of stroke discussed. Shared decision making patient agreeable to long-term anticoagulation - plan to go home on daily aspirin and Eliquis Elevated troponin Troponin was elevated to 1792 on admission, patient has had no clinical chest pain preceding this, and has no chest pain at time of assessment EKG without ST segment changes, nonspecific lateral T wave inversions are present Rate control, 500 cc NSS gentle support given for tacky mucous membranes and contracted BUN/creatinine ratio 22 - troponin downtrending, most likely d/t demand w/ afib Hypertension Amlodipine 5 mg daily- held for permissive HTN Continue metoprolol 50 mg tartrate twice daily Telmisartan 80 mg p.o. every morning- held Type II DM Patient denies history of this in self, endorses in father. Chart does have a history of DM, glucose is 166 on admission A1c 6.7 01/30/2022 Diet controlled at home, basal bolus weight-based SSI while inpatient w/ goal of [id number] Overactive bladder Continue trospium Hyperlipidemia Gemfibrozil 600 mg twice daily d/t high TG LDL previously less than 100, 139 02/02, repeat on admission 137 Patient is not sure if he has been statin intolerant in the past, reacted to Plavix but is not sure why he was recommended to be on this. Has discussed a statin trial as outpatient, is willing to try this with monitoring. 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 Will touch base with CM tomorrow Admission and Anticipated Discharge Date Admission Date: July 27, 2022 Supervising Physician Co-Signing Physician Notes Resident Physician Supervision Note: I independently interviewed and examined the patient and verified the rodriguez history and physical, reviewed labs and image studies and agree with resident findings and care plan. Subjective Pt is an 86 yo male with a PMH of prostate cancer, radiation colitis, HTN, type 2 diabetes mellitus, hyperglycemia, idiopathic urticaria who presented as a stroke alert for slurred speech and right arm weakness. The slurred speech began (07/24/2022) which was noticed by a friend while talking about the phone. His friend also noticed a facial droop. Right sided weakness and lack of coordination started Thursday which prompted him to come to the hospital. In the ER, CXR, head CT, and head/neck CTA were negative for acute pathology. Brain MRI showed an acute distal left MCA infarct and an age indeterminate left basal ganglia lacunar infarct. Pt is a former smoker having quit in 1974. He has no hx of [place] or stroke, but does have a cardiac stent. He was taking a daily aspirin but stopped this a few years ago. This morning, pt is doing well overall. He has no furthering of his symptoms. 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 He states he is still slurring his speech. NIHSS 2 was this AM. Physical Exam 2 Constitutional: NAD. Vitals WNL. Eyes: No conjunctival abnormality. Lack of peripheral vision in left eye. Bilateral pupils normal size. ENMT: Right sided facial droop most noticeable at mouth. Respiratory: CTA bilaterally. No rhonchi, wheezing, or crackles. Non labored breathing. Cardiovascular: Irregular rhythm. Regular rate. No murmur noted. 2+ n onpitting, bilateral LL edema. Musculoskeletal: Right sided UE 5/5, Left side UE 5/5. Bilateral LE 5/5. 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 Skin: no rashes, warm and dry Neurologic: Pt able to speak clearly, most likely somewhat impeded by right facial droop. CN II-XI intact. Right deviation of tongue on protrusion. Psychiatric: Alert. Mood and affect congruent. Results & Data Results & Data ([facility]) Vital Signs (Past 12 Hours) Vital Signs Temp Pulse Pulse Resp BP Pulse Ox O2 Del Method 07/28/22 07:30 Room Air 07/28/22 07:52 36.9 C 78 16 155/94 H 96 Room Air 07/28/22 07:11 72 07/27/22 22:00 Room Air 07/28/22 04:00 36.4 C L 76 18 162/95 H 93 Room Air 07/27/22 22:06 76 07/28/22 00:00 36.5 C 76 18 171/94 H 94 Room Air Resident Activity Tracking Resident Involvement: Resident Care Provided Care Provided: Adult Hospital Medicine
[2022-07-28] MEDS: ASPIRIN 81 MG ECTAB PO SCH (08:14)
[2022-07-28] MEDS: TAMSULOSIN HCL 0.4 MG CAP PO SCH (08:14)
[2022-07-28] MEDS: FOLIC ACID 1 MG TAB PO SCH (08:14)
[2022-07-28] MEDS: TELMISARTAN 40 MG TAB PO SCH (08:16)
[2022-07-28] MEDS: METOPROLOL TARTRATE 50 MG TAB PO SCH ×2 (08:16→20:33)
[2022-07-28] MEDS: LANTUS PER UNIT CHARGE SQ SCH (08:22)
[2022-07-28] MEDS: INSULIN ASPART PER UNIT SC SCH ×4 (08:22→20:32)
[2022-07-28] MEDS ORDERED: APIXABAN 5 MG TABLET PO SCH (09:00)
[2022-07-28] MEDS ORDERED: amLODIPine BESYLATE 5 MG TAB PO SCH (09:00)
[2022-07-28] MEDS ORDERED: ATORVASTATIN 40 MG TAB PO SCH (09:00)
[2022-07-28] MEDS: POTASSIUM CHLORIDE / WTR 10 MEQ/100 ML PLCT IV SCH ×2 (09:01→10:06)
[2022-07-28] MEDS: CYANOCOBALAMIN (B-12) 500 MCG TABLET PO SCH (09:40)
--- NOTE | 2022-07-28 10:55 | Neurology Consultation ---
Date of Consultation July 28, 2022 Assessment & Plan (1) Acute CVA (cerebrovascular accident): (2) Dysarthria: (3) Acute right hemiparesis: (4) Atrial fibrillation, new onset: (5) DM type 2 (diabetes mellitus, type 2): (6) Hypertension: Plan this patient had an acute stroke likely starting on July 24. He did not come in for medical attention over several days and had persistent symptoms including dysarthria and a very mild right dayne paresis. He is already making improvements. MRI of the brain showed multiple tiny strokes in the and almost wedge like pattern in the left middle cerebral artery branch. There is no history to suggest an embolic event but I cannot exclude this, particularly with the new onset atrial fibrillation. MRI also shows moderate old small vessel ischemic disease and atrophy. He was not on any antiplatelet medication. He has multiple risk factors for stroke including hypertension, diabetes, dyslipidemia, and he was a former cigarette smoker quitting in 1974. Recommendations: 1. Continue 81 milligram aspirin tablet daily. 2. agree with anticoagulant to prevent embolic stroke from atrial fibrillation. 3. Therefore he will have an increased bruising and bleeding risk on these 2 agents. 4. Control blood pressure as you are doing, aiming for a mean arterial pressure of 95-100. 5. Control glucose trying to lower the hemoglobin A1c closer the 6.0. 6. continue a statin or lipid medication, however, in lieu of his age and the fact that he is on an anticoagulant, he would not be a high dose statin candidate as this might increase his bleeding risk. 7. Increase activity as able and continue PT, OT, and speech therapy consult. He may benefit from a rehab hospital stay especially since he lives alone at home. overall, I spent a total of 90 minutes with this case including review of records, review of MRI films, direct evaluation the patient bedside, and discussion the case with the patient and RN at bedside, and Dr. Le including differential diagnosis and treatment options. History of Present Illness Reason for Consultation: patient is an 86-year-old, who I was asked to see at the request of Dr. Rider, for neurologic consultation regarding stroke Requesting Physician: Dr. Rider Attending Physician: Verena Le MD History of Present Illness this patient has a history of hypertension, dyslipidemia, coronary artery disease, type 2 diabetes, and prostate cancer. He was taking aspirin for years since a cardiac stent procedure in 2005. Originally it was supposed to be Plavix but he had hives to Plavix. About 2 years ago he stopped taking the aspirin because he did not think he needed it. In the evening of July 24, patient had some slurred speech. The next day when he was raking on July 25 he had right hand weakness. By the there was a right facial droop noted and he continued to have the other problems. His girl friend convinced him to go to the emergency room. Patient arrived July 27 at 11:14 with a temperature of 36.4, pulse 83 and regular, respiratory rate 16, blood pressure 176/97, and O2 saturation 94 percent. He was noted to have facial droop in the emergency room. He was also noted to be in atrial fibrillation (which was new for him ). CBC was unremarkable. Chem profile was remarkable for mildly elevated BUN and a glucose of 164. troponin was elevated at 1792. Chest x-ray was unremarkable. CT scan of the head was unremarkable. CT angiography of the head neck revealed some mild stenosis in the distal right internal carotid artery, only. MRI of the brain showed left acute stroke in the left frontal temporal head region. This was distal in the branch of the MCA. There were multiple small strokes as if a bigger stroke and broken up. Today he is feeling a little bit better with his strength but he still has some slurred speech. Hemoglobin A1c was 6.5. Total cholesterol is 191 and triglycerides 70. Allergies Allergy/AdvReac Type Severity Reaction Status Date / Time clopidogrel Allergy Intermediate HIVES Verified 07/27/22 12:35 Iodinated Contrast Media Allergy Intermediate HIVES Verified 07/27/22 12:35 HMG-CoA-R Inhibitors Allergy Unknown PT NOT SURE Uncoded 07/27/22 12:35 Home Medications Medication Instructions Recorded Confirmed Type cholecalciferol (vitamin D3) 125 125 mcg PO QPM 10/25/21 07/27/22 History mcg (5,000 unit) tablet (Vitamin D3) trospium 20 mg tablet 20 mg PO BID #180 tabs 04/15/22 07/27/22 Rx amlodipine 5 mg tablet 5 mg PO QAM #90 tabs 07/07/22 07/27/22 Rx gemfibrozil 600 mg tablet 600 mg PO BID #180 tabs 07/07/22 07/27/22 Rx metoprolol tartrate 50 mg tablet 50 mg PO BID #180 tabs 07/07/22 07/27/22 Rx telmisartan 80 mg tablet 80 mg PO QAM #90 tabs 07/07/22 07/27/22 Rx tamsulosin 0.4 mg capsule 0.4 mg PO QAM 07/27/22 07/27/22 History vitamin B12 0.5 mg-folic acid 1 mg 1 tab PO DAILY 07/27/22 07/27/22 History tablet Patient History Medical History Elevated hemoglobin A1c History of idiopathic urticaria 3-4 YR AGO, HIVES FOR 1 YR - UNKNOWN ETIOLOGY- NO RE-OCCURENCE Hyperlipidemia Hypertension Overactive bladder Prostate cancer DX 2005 - HX RADIATION AND SEED IMPLANT Prostate cancer 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 Urinary symptom or sign Surgical History History of colonoscopy History of coronary artery stent placement EARLY History of left cataract extraction History of prostate surgery History of tonsillectomy S/P hernia repair HX MULTIPLE Family History Father Myocardial infarction Diabetes Heart disease Hypertension Mother Pancreatic cancer Sister Poliomyelitis Denies family history of Colon cancer Ovarian cancer Prostate cancer Breast cancer Social History Smoking Status: Former smoker Age Started Using Tobacco: 17; Age Quit Using Tobacco: 72; packs per day: 2; Cigarettes Per Day: 3-4 packs/day quit 1975; Second Hand Exposure: Yes; Do You Dip or Chew Tobacco: No; Tobacco Cessation Education Requested by Patient: No Hx Alcohol Use: Yes Alcohol type: beer Hx Substance Use: No Preferred Language: Tristanian Communication Ability: Effective Visual Impairment: No Limitations Hearing Ability: Normal Tax Compliance Officer Required: No Beliefs That Will Affect Care: None marital status: Single Current Living Situation: Alone current occupational status: retired Other Information That Helps Us Care for You: No Feels Safe at Home: Yes Safety Concerns: Feels Safe At This Time Childhood Exposure to Second-Hand Smoke: Yes Dental Care, Regularly: Yes Physical Activity Frequency: 3-4 Times per Week Seatbelt Use: always Sunscreen Use: No Assistive Devices: Glasses Review of Systems Constitutional: no fever, no fatigue and no weakness Eyes: no diplopia, no eye pain and no worsening vision Ear, Nose, Mouth, Throat: no ear pain, no tinnitus, no hearing loss, no dizziness, no snoring, no hoarseness and no dysphagia Respiratory: no cough and no dyspnea Cardiovascular: no chest pain, no palpitations and no lightheadedness Gastrointestinal: no abdominal pain, no nausea and no vomiting Musculoskeletal: no back pain, no neck pain, no radicular pain, no joint pain and no myalgia Integumentary: no rash and no lesions Neurologic: + gait abnormality, + localized weakness and + abnormal speech; no generalized weakness, no tingling, no numbness, no tremor(s), no abnormal movements, no headache(s), no confusion and no memory loss Psychiatric: no depression, no irritability, no anxiety, no difficulty concentrating, no confusion and no hallucinations Endocrine: no fatigue and no flushing Hematologic / Lymphatic: no easy bleeding and no easy bruising Allergy / Immunological: no urticaria and no problem reported Exam (Neuro) Physical Exam: The patient is right-handed. The patient is awake, alert, and attentive. Speech has some mild dysarthria but no obvious aphasia. The patient can name objects, repeat phrases, and has normal spontaneous speech. Mentation and thought processes are intact, with orientation to person, place and time, and normal fund of knowledge. Attention and concentration are normal. Mood and affect are normal and appropriate. General appearance and grooming are normal. Short and long-term memory are intact. Pupils are 3 mm bilaterally and reactive to light. Extraocular eye muscles are intact without nystagmus. Visual acuity and visual jones seem normal grossly to confrontation. There are no deficits to sensation in the face in all 3 distributions of the fifth cranial nerve bilaterally. Corneal reflexes are positive bilaterally. Facial strength and symmetry was normal bilaterally. Hearing seems normal bilaterally. Palate moves well without asymmetry. There is normal sternocleidomastoid and trapezius (shoulder shrug) strength bilaterally. Tongue is midline with good strength bilaterally. Neck has a full range of motion without discomfort. There are no cervical bruits bilaterally. There are no cranial or ocular bruits. Heart is without murmur. There is a regular rhythm and rate. Cervical, thoracic, and lumbar spine are nontender to palpation. Gait is narrow based, But he needs a walker or assistance of 1 for support. Stance eyes open or closed is unremarkable. With outstretched arms there is very mild drift on the right. There are no resting, postural, or action tremors. There is no ataxia with finger to nose testing. There is decreased facility and clumsiness in the right hand compared to the left which is normal. No abnormal involuntary movements are noted. 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 however, the patient was clumsy in the right hand compared to the left. Strength seem preserved. Motor strength is 5/5 diffusely in the legs bilaterally including hip flexors, quadriceps, hamstrings, gastrocnemius, tibialis anterior, tibialis posterior, and Peroneii muscles. Toe extensors are normal and there is good bulk in the extensor digitorum brevis muscles bilaterally. The limbs have good tone without rigidity or spasticity. There is no atrophy noted in the muscles. Muscle bulk is normal, there is no tenderness to palpation, no myotonia to percussion, and no fasciculations seen. Sensory examination is intact to touch and pin throughout all 4 limbs diffusely. Reflexes are 2/4 in the biceps, triceps, brachioradialis, quadriceps, and Achilles tendons bilaterally. There is no clonus bilaterally. Toes are downgoing with plantar stimulation on the left and upgoing on plantar stimulation on the right Peripheral pulses are present and of normal quality distally in all 4 limbs. There is no peripheral edema noted in the limbs. Results & Data ([facility]) Vital Signs (Past 12 Hours) Vital Signs Temp Pulse Pulse Resp BP Pulse Ox O2 Del Method 07/28/22 07:30 Room Air 07/28/22 07:52 36.9 C 78 16 155/94 H 96 Room Air 07/28/22 07:11 72 07/28/22 04:00 36.4 C L 76 18 162/95 H 93 Room Air 07/28/22 00:00 36.5 C 76 18 171/94 H 94 Room Air PG Care Time/CCT Total # of Minutes Spent Total Time Spent with Patient: Total time spent is greater than 50% in coordination of care (as documented) at patient's floor/unit and/or counseling patient: Coding Level of Care Code 13355 Initial Inpt Care Lvl 3 Diagnoses Acute CVA (cerebrovascular accident) I63.9 Dysarthria R47.1 Acute right hemiparesis G81.91 Atrial fibrillation, new onset I48.91 DM type 2 (diabetes mellitus, type 2) E11.9 Hypertension I10 Time Spent (min) 90
[2022-07-28] MEDS ORDERED: Heparin IV Adult Wt-Based Standard *NO* Bolus Protocol IV SCH (11:13)
[2022-07-28] MEDS ORDERED: HEPARIN SODIUM/DEXTROSE 25,000 UNITS/500 ML BAG IV SCH (11:30)
[2022-07-28 12:08] LABS: Partial Thromboplastin Ratio 0.9; Partial Thromboplastin Time 25.8 Seconds (21.0-31.0)
[2022-07-28] MEDS ORDERED: HEPARIN SOD (PORCINE) 1000 UNIT/ML IV ONE (12:30)
[2022-07-28] MEDS ORDERED: Nursing to Pharmacy Communication SCH (12:45)
[2022-07-28 18:55] LABS: Partial Thromboplastin Ratio 2.2
[2022-07-28 19:05] LABS: Partial Thromboplastin Time 59.6 Seconds (21.0-31.0)
[2022-07-28] MEDS: CHOLECALCIFEROL 5,000 UNITS 125 MCG TAB PO SCH (20:33)
[2022-07-29] MEDS: HEPARIN SODIUM/DEXTROSE 25,000 UNITS/500 ML BAG IV SCH (05:31)
[2022-07-29 08:11] LABS: Basophils # (auto) 0.04 K/uL (0-0.2); Basophils % (auto) 0.6 %; Eosinophils % (auto) 2.9 %; Hematocrit (blood only) 39.1 % (40.1-51.0); Hemoglobin 13.4 g/dl (14.0-18.0); Immature Granulocytes # (auto) 0.01 K/uL (0.00-0.02); Immature Granulocytes % (auto) 0.1 %; Lymphocytes # (auto) 1.54 K/uL (1.2-3.4); Lymphocytes % (auto) 22.6 %; Mean Corpuscular Hemoglobin 30.8 pg (25.0-34.0); Mean Corpuscular Hgb Conc 34.3 g/dL (32.0-36.0); Mean Corpuscular Volume 89.9 fL (80.0-100.0); Mean Platelet Volume 10.5 fL (9.4-12.4); Monocytes # (auto) 1.14 K/uL (0.24-0.82); Monocytes % (auto) 16.8 %; Neutrophils # (auto) 3.87 K/uL (1.4-6.5); Platelet Count 249 K/uL (130-400); RDW Coefficient of Variation 12.8 % (11.5-14.5); RDW Standard Deviation 42.3 fL (36.4-46.3); Red Blood Count 4.35 M/uL (4.63-6.08)
[2022-07-29 08:29] LABS: BUN Creatinine Ratio 22.8 (10-20); Creatinine Clr Calc Pharmacy 48.5 ml/min; Est GFR (African American) 59.7 ml/min; Est GFR (Non-African American) 51.5 ml/min; Potassium 3.7 mmol/L (3.5-5.1)
[2022-07-29 08:36] LABS: Partial Thromboplastin Ratio 3.7
[2022-07-29 08:54] LABS: Partial Thromboplastin Time 101.6 Seconds (21.0-31.0)
[2022-07-29] MEDS: INSULIN ASPART PER UNIT SC SCH ×4 (09:28→21:31)
[2022-07-29] MEDS: LANTUS PER UNIT CHARGE SQ SCH (09:29)
[2022-07-29] MEDS: ASPIRIN 81 MG ECTAB PO SCH (10:11)
[2022-07-29] MEDS: CYANOCOBALAMIN (B-12) 500 MCG TABLET PO SCH (10:12)
[2022-07-29] MEDS: ATORVASTATIN 20 MG TAB PO SCH (10:12)
[2022-07-29] MEDS: FOLIC ACID 1 MG TAB PO SCH (10:13)
[2022-07-29] MEDS: METOPROLOL TARTRATE 50 MG TAB PO SCH ×2 (10:13→21:03)
[2022-07-29] MEDS: TAMSULOSIN HCL 0.4 MG CAP PO SCH (10:13)
--- NOTE | 2022-07-29 14:25 | Hospitalist Progress Note ---
Date of Service July 29, 2022 Assessment & Plan (1) Acute CVA (cerebrovascular accident): Plan: Pt is an 86 yo male with a PMH of prostate cancer, radiation colitis, HTN, type 2 diabetes mellitus, hyperglycemia, idiopathic urticaria who presented as a stroke alert for slurred speech and right arm weakness. 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 2. No occlusion, hemodynamically significant stenosis, or dissection in the major cervical arteries. 3. 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 There is narrowing of the right supraclinoid internal carotid artery which may represent borderline hemodynamic stenosis. CT-H: There is no acute intracranial hemorrhage or evidence of acute territorial infarction. No shift of the midline structures, mass effect, or extra-axial abnormalities are shown. - Prior stenosis ipsilateral to stroke sx, low suspicious for symptomatic carotid dz Carotid Doppler 03/06/2022: Less than 50% stenosis of right and left ICA, greater than 50% stenosis of right external carotid. Anterograde flow bilaterally and vertebrals EKG: Afib with PVCs, rate 86, QTc 402, T wave inversions in lateral leads without ST segment changes - Pt allergic to plavix (hives), but has tolerated aspirin. Took 2 full dose aspirin prior to admission Resume aspirin 81 mg daily - added 20mg atorvastatin - PT/OT recommending d/c to rehab; CM working on referrals New onset Afib - [id number] 5 points. High risk. Recommend anticoagulation - Continue metoprolol, rate controlled on admission - Echo showed EF 50-55% with mild inferior, posterior, and inferoapical hypokinesis - Pt is with symptom onset >48 hours before presentation. Started on heparin in ER. Continued heparin today - Risk of bleeding/hemorrhagic conversion vs risk of stroke discussed. Shared decision making patient agreeable to long-term anticoagulation - plan for d/c on daily aspirin and Eliquis Hyperlipidemia Gemfibrozil 600 mg twice daily d/t high TG LDL previously less than 100, 139 02/02, repeat on admission 137 Patient is not sure if he has been statin intolerant in the past, reacted to Plavix but is not sure why he was recommended to be on this. Has discussed a statin trial as outpatient, is willing to try this with monitoring. 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 Originally started on atorvastatin 40 mg, if rash develops add methylprednisolone/Benadryl/cetirizine and discontinue statin - switched to 20 mg atorvastatin, as neuro recommended against high intensity statin Gemfibrozil discontinued given risk of reaction with switch to statin Myocardial infarction Type 2 Elevated troponin Troponin was elevated to 1792 on admission, patient has had no clinical chest pain preceding this, and has no chest pain at time of assessment EKG without ST segment changes, nonspecific lateral T wave inversions are present - troponin downtrended, most likely d/t demand w/ afib Hypertension Amlodipine 5 mg daily- held for permissive HTN Continue metoprolol 50 mg tartrate twice daily Telmisartan 80 mg p.o. every morning- held Type II DM Patient denies history of this in self, endorses in father. Chart does have a history of DM, glucose is 166 on admission A1c 6.7 01/30/2022 Diet controlled at home, basal bolus weight-based SSI while inpatient w/ goal of [id number] Overactive bladder Continue trospium (2) Atrial fibrillation, new onset: (3) Elevated troponin: (4) Hypertension: (5) DM type 2 (diabetes mellitus, type 2): Plan Diet: heart healthy, carb consistent SCDs: heparin, plan to d/c on Eliquis Code: full Dispo: telemetry, medically stable, plan to d/c to rehab. CM has referral sent to [facility] Admission and Anticipated Discharge Date Admission Date: July 27, 2022 Supervising Physician Co-Signing Physician Notes Resident Physician Supervision Note: I independently interviewed and examined the patient and verified the rodriguez history and physical, reviewed labs and image studies and agree with resident findings and care plan. Subjective Pt is an 86 yo male with a PMH of prostate cancer, radiation colitis, HTN, type 2 diabetes mellitus, hyperglycemia, idiopathic urticaria who presented as a stroke alert for slurred speech and right arm weakness that began 07/24. This morning, pt is doing well overall. He believes his speech and picture engraver strength have improved. He is practicing his writing. Pt denies chest pain, SOB, and fur ther development of weakness or sensory deficits. Physical Exam Constitutional: NAD. Vitals WNL. Eyes: no conjunctival abnormality ENMT: Right sided facial droop present, mostly at mouth. Respiratory: CTA bilaterally. No rhonchi, wheezing, or crackles. Non labored breathing. Cardiovascular: Irregular rhythm. Regular rate. No murmur noted. Improved edema from yesterday, mild non pitting bilateral edema still present. Musculoskeletal: Bilateral UE 5/5. Right picture engraver strength improved since yesterday. Skin: no rashes, warm and dry Neurologic: Pt speech somewhat improving. Psychiatric: Alert. Mood and affect congruent. Results & Data Results & Data ([facility]) Vital Signs (Past 12 Hours) Vital Signs Temp Pulse Pulse Resp BP Pulse Ox O2 Del Method 07/29/22 11:49 36.6 C 72 18 145/91 H 94 Room Air 07/29/22 10:22 36.5 C 84 16 145/85 H 95 Room Air 07/29/22 07:30 Room Air 07/29/22 07:06 89 07/29/22 05:55 Room Air 07/29/22 02:57 36.7 C 72 18 148/91 H 93 Room Air Resident Activity Tracking Resident Involvement: Resident Care Provided Care Provided: Adult Hospital Medicine
[2022-07-29 17:53] LABS: Partial Thromboplastin Ratio 2.7
[2022-07-29 18:00] LABS: Partial Thromboplastin Time 73.1 Seconds (21.0-31.0)
[2022-07-29] MEDS: CHOLECALCIFEROL 5,000 UNITS 125 MCG TAB PO SCH (21:03)
[2022-07-30 01:28] LABS: Partial Thromboplastin Ratio 2.5
[2022-07-30 01:36] LABS: Partial Thromboplastin Time 69.1 Seconds (21.0-31.0)
[2022-07-30] MEDS: HEPARIN SODIUM/DEXTROSE 25,000 UNITS/500 ML BAG IV SCH ×2 (01:38→12:21)
--- NOTE | 2022-07-30 07:23 | Hospitalist Progress Note ---
Date of Service July 30, 2022 Assessment & Plan (1) Acute CVA (cerebrovascular accident): Plan: Pt is an 86 yo male with a PMH of prostate cancer, radiation colitis, HTN, type 2 diabetes mellitus, hyperglycemia, idiopathic urticaria who presented as a stroke alert for slurred speech and right arm weakness. 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 2. No occlusion, hemodynamically significant stenosis, or dissection in the major cervical arteries. 3. 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 There is narrowing of the right supraclinoid internal carotid artery which may represent borderline hemodynamic stenosis. CT-H: There is no acute intracranial hemorrhage or evidence of acute territorial infarction. No shift of the midline structures, mass effect, or extra-axial abnormalities are shown. - Prior stenosis ipsilateral to stroke sx, low suspicious for symptomatic carotid dz Carotid Doppler 03/06/2022: Less than 50% stenosis of right and left ICA, greater than 50% stenosis of right external carotid. Anterograde flow bilaterally and vertebrals EKG: Afib with PVCs, rate 86, QTc 402, T wave inversions in lateral leads without ST segment changes - Pt allergic to plavix (hives), but has tolerated aspirin. Took 2 full dose aspirin prior to admission Resume aspirin 81 mg daily - added 20mg atorvastatin - PT/OT recommending d/c to rehab; CM working on referrals New onset Afib - [id number] 5 points. High risk. Recommend anticoagulation - Continue metoprolol, rate controlled on admission - Echo showed EF 50-55% with mild inferior, posterior, and inferoapical hypokinesis - Pt is with symptom onset >48 hours before presentation. Started on heparin in ER. Continued heparin today - Risk of bleeding/hemorrhagic conversion vs risk of stroke discussed. Shared decision making patient agreeable to long-term anticoagulation - plan for d/c on daily aspirin and Eliquis Hyperlipidemia Gemfibrozil 600 mg twice daily d/t high TG LDL previously less than 100, 139 02/02, repeat on admission 137 Patient is not sure if he has been statin intolerant in the past, reacted to Plavix but is not sure why he was recommended to be on this. Has discussed a statin trial as outpatient, is willing to try this with monitoring. 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 Originally started on atorvastatin 40 mg, if rash develops add methylprednisolone/Benadryl/cetirizine and discontinue statin - switched to 20 mg atorvastatin, as neuro recommended against high intensity statin Gemfibrozil discontinued given risk of reaction with switch to statin Myocardial infarction Type 2 Elevated troponin Troponin was elevated to 1792 on admission, patient has had no clinical chest pain preceding this, and has no chest pain at time of assessment EKG without ST segment changes, nonspecific lateral T wave inversions are present - troponin downtrended, most likely d/t demand w/ afib Hypertension Amlodipine 5 mg daily- held Continue metoprolol 50 mg tartrate twice daily and telmisartan 80 mg PO every morning Type II DM Patient denies history of this in self, endorses in father. Chart does have a history of DM, glucose is 166 on admission A1c 6.7 01/30/2022 Diet controlled at home, basal bolus weight-based SSI while inpatient w/ goal of [id number] Overactive bladder Continue trospium (as able) (2) Atrial fibrillation, new onset: (3) Elevated troponin: (4) Hypertension: (5) DM type 2 (diabetes mellitus, type 2): Plan Diet: heart healthy, carb consistent SCDs: heparin, plan to d/c on Eliquis Code: full Dispo: telemetry, medically stable, plan to d/c to rehab. CM waiting for updates from facilities Admission and Anticipated Discharge Date Admission Date: July 27, 2022 Subjective Pt is an 86 yo male with a PMH of prostate cancer, radiation colitis, HTN, type 2 diabetes mellitus, hyperglycemia, idiopathic urticaria who presented as a stroke alert for slurred speech and right arm weakness that began 07/24. Pt explains that he had a rough morning due to not sleeping well last night and delays in getting to the bathroom. He feels well overall. No further development of neurologic symptoms. He denies chest pain, SOB, and dizziness. Physical Exam Constitutional: NAD. Vitals WNL. Eyes: no conjunctival abnormality Respiratory: CTA bilaterally. No rhonchi, wheezing, or crackles. Non labored breathing. Cardiovascular: Irregular rhythm. Regular rate. No murmur noted. No LL edema. Gastrointestinal (Abdomen): Nontender, +BS. No masses noted. Musculoskeletal: Right auto emissions technician strength improved. Skin: no rashes, warm and dry Psychiatric: Alert. Mood and affect congruent. Results & Data Results & Data ([facility]) Vital Signs (Past 12 Hours) Vital Signs Temp Pulse Pulse Resp BP BP Pulse Ox 07/30/22 07:11 86 07/30/22 03:03 36.6 C 86 18 169/109 H 92 07/29/22 22:16 82 07/29/22 22:53 36.7 C 81 18 155/82 H 94 07/29/22 23:03 07/29/22 19:38 36.6 C 79 18 152/80 H 93 O2 Del Method 07/30/22 07:11 07/30/22 03:03 Room Air 07/29/22 22:16 07/29/22 22:53 Room Air 07/29/22 23:03 Room Air 07/29/22 19:38 Room Air Resident Activity Tracking Resident Involvement: Resident Care Provided Care Provided: Adult Hospital Medicine
[2022-07-30 08:24] LABS: BUN Creatinine Ratio 24.6 (10-20); Calcium 8.9 mg/dl (8.5-10.1); Creatinine Clr Calc Pharmacy 51.2 ml/min; Est GFR (African American) 62.7 ml/min; Est GFR (Non-African American) 54.1 ml/min; Potassium 3.6 mmol/L (3.5-5.1)
[2022-07-30 08:29] LABS: Partial Thromboplastin Ratio 2.4
[2022-07-30] MEDS: METOPROLOL TARTRATE 50 MG TAB PO SCH (08:43)
--- NOTE | 2022-07-30 08:43 | Pharmacy Report ---
- Date of Service July 30, 2022 - Pharmacy CVA/TIA Medication Review Medications to Prevent Stroke handout has been added to the patients discharge packet. Antiplatelet(s) * Aspirin 81 mg daily Cholesterol * High intensity statin deferred due to age >75 - patient continues on atorvastatin 20 mg daily Therapeutic Anticoagulation * Per notes, neurology agrees that patient should continue with anticoagulation to prevent embolic stroke from atrial fibrillation * Patient currently on heparin drip while inpatient, likely will transition to oral agent on discharge Type 2 Diabetes * A1c of 6.5% - borderline A1c, but places patient in diabetic category (A1c >/=6.5%) * Provider to reinforce healthy diet/lifestyle at home. "Medications to prevent stroke" handout has already been added to the patient's discharge packet, w [facility] instructs the patient to follow up with their outpatient provider to evaluate if diabetes medication with proven CVD benefit is appropriate
[2022-07-30 08:44] LABS: Partial Thromboplastin Time 66.2 Seconds (21.0-31.0)
[2022-07-30] MEDS: TAMSULOSIN HCL 0.4 MG CAP PO SCH (08:44)
[2022-07-30] MEDS: ATORVASTATIN 20 MG TAB PO SCH (08:44)
[2022-07-30] MEDS: ASPIRIN 81 MG ECTAB PO SCH (08:44)
[2022-07-30] MEDS: CYANOCOBALAMIN (B-12) 500 MCG TABLET PO SCH (08:44)
[2022-07-30] MEDS: FOLIC ACID 1 MG TAB PO SCH (08:44)
[2022-07-30] MEDS: LANTUS PER UNIT CHARGE SQ SCH (08:48)
[2022-07-30] MEDS: INSULIN ASPART PER UNIT SC SCH ×2 (08:48→12:17)
[2022-07-30] MEDS: TELMISARTAN 40 MG TAB PO SCH (09:46)
[2022-07-30] MEDS ORDERED: APIXABAN 5 MG TABLET PO SCH (11:30)
[2022-07-30] MEDS ORDERED: STROKE PATIENT DISCHARGE STA (11:51)
--- NOTE | 2022-07-30 12:26 | Discharge Summary ---
Date of Service July 30, 2022 Admission HPI Per Admitting Provider Mario is an 86-year-old male with a past medical history of prostate cancer, radiation colitis, hypertension, type 2 diabetes mellitus, hyperglycemia, idiopathic urticaria who presented to [facility] ER as a stroke alert for slurred speech, right arm weakness. Patient has had speech slurring of approximately 2-3 days, was noticed by a friend who thinks his speech has been slurred more with a slight right-sided facial droop. Right upper arm coordination seems more poor than usual. Patient is outside of TNKase window. Mario is seen at the bedside with his friend and surrogate decision maker Abbey. He reports he feels he was in his usual state of health until last when he developed some difficulty speaking. Over and Thursday his speech continued to be off and seemed a little bit worse. Abbey also noticed that he had some right-sided facial droop. 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 This prompted him to come to the ER for evaluation. During this timeframe he reports he has had some intermittent shortness of breath which does seem to be a little bit worse with exertion, but resolves with rest and which is not associated with any chest pain/chest pressure/palpitations. He has not been ill lately, and denies fever, chills, sweats, lightheadedness, dizziness, syncope, presyncope, nausea, vomiting, DrStephanie Caceres, constipation. He has not had any falls, and feels he is able to walk normally. He has no history of [place] or CVA, does have a history of hyperlipidemia and hypertension. He reports that he had an allergy to Plavix many years ago, but is not sure why he was prescribed Plavix in the first place. Does note that he has high blood pressure, but confirms he has never had a heart attack, stents, or stroke. He is able to tolerate aspirin and took 2 full dose aspirin before coming to the hospital this morning. He thinks that he may have had a reaction to a statin in the past but is not sure. He reports he takes gemfibrozil for lipids, and has been open to a statin trial but has not tried this as an outpatient. He is a former smoker, from age 17 until about 70s he was a 2 to 3 pack a day smoker. No tobacco use in the last decade. Does not use a vape or other tobacco products. Denies alcohol use. Denies recreational drug use. No history of diabetes or insulin use. Does have a family history of diabetes in his father which was cured with a pill and did not need insulin per patient. He did take his medications this morning Medical History: Reviewed Medications: Reviewed Surgical History: Reviewed Allergies: Reviewed Social History: As above, former smoker Code Status: Full Code Admission Exam Per Admitting Provider General: A&Ox3. NAD. Cooperative. HEENT: Atraumatic, normocephalic. Neuro exam as below. Pulm: CTAB A&P. -wheezes, -rales, -rhonchi. Symmetrical chest rise. No increased work of breathing. No respiratory distress. Cardiac: Irregularly irregular, -mrg. Radial pulses intact and symmetrical. Abdominal: Nontender, nondistended, soft. BS present. Ext: as below. 2+ edema bilaterally in lower extremities. CRANIAL NERVES: II: Pupils equal and reactive, no relative afferent pupillary defect, no VF cu ts III, IV, : EOM intact, no gaze preference or deviation, no nystagmus. V: normal sensation in V1, V2, and V3 segments bilaterally VII:Right-sided facial droop is appreciated most prominent in the lip. VIII: normal hearing to speech IX, X: No uvular deviation. XI: 5/5 shoulder shrug XII:Tongue deviates to the right on attempted midline protrusion. Speech is with dysarthria, no receptive or expressive aphasia is appreciated. MOTOR: RUE: 5/5 Shoulder internal rotation, external rotation, flexion, extension, abduction, adduction 5/5 Elbow flexion/extension, wrist flexion/extension 4+/5 printing press operator strength, finger flexion/extension, interosseus LUE: 5/5 Shoulder internal rotation, external rotation, flexion, extension, abduction, adduction 5/5 Elbow flexion/extension, wrist flexion/extension 5/5 printing press operator strength, finger flexion/extension, interosseus RLE: 5/5 to hip flexion, ankle dorsiflexion/plantarflexion LLE: 5/5 to hip flexion, ankle dorsiflexion/plantarflexion REFLEXES: no clonus SENSORY: Normal to touch in upper and lower extremities without deficit or asymmetry COORD:Normal finger to nose bilat, no tremor, no dysmetria Principal Diagnosis acute, left distal MCA CVA Discharge Exam Constitutional NAD. BP high, other vitals WNL. Respiratory CTA bilaterally. No rhonchi, wheezing, or crackles. Non labored respirations. Cardiovascular Irregular rhythm. Regular rate. No murmurs noted. LE edema improved. Musculoskeletal Right printing press operator strength improved. No UE weakness noted. Neurologic No FND noted Psychiatric Alert. Mood and affect congruent. Discharge Data Allergies Allergy/AdvReac Type Severity Reaction Status Date / Time clopidogrel Allergy Intermediate HIVES Verified 07/27/22 12:35 Iodinated Contrast Media Allergy Intermediate HIVES Verified 07/27/22 12:35 [id number] Reductase AdvReac Unknown Unknown Verified 07/30/22 01:51 Inhibitor Consultations 07/27/22 12:29 ED Decision to Admit Stat 07/28/22 08:03 Consult Neurology Routine Ordered Studies Chest X-Ray 07/27/22 11:26 XR chest 1V portable CLINICAL HISTORY: Stroke Like Symptoms TECHNIQUE: Single frontal radiograph of the chest was obtained. Comparison: None available at the time of this dictation. FINDINGS: No lines and tubes are seen. Calcified aortic knob is seen. The lungs are clear. No evidence of pleural effusion or pneumothorax. IMPRESSION: No acute chest disease. ACT 112: Negative or not required by law. Electronically signed by: Rc Hill M.D. 07/27/2022 12:[address] 07/27/22 11:26 CT angio neck with con, CT angio head w con, CT head/brain wo con CLINICAL HISTORY: Stroke Like Symptoms TECHNIQUE: Contiguous axial CT images of the head were acquired from the base of the skull to the vertex without intravenous contrast administration. CT angiography of the head and neck was performed following intravenous administration of iodinated contrast. Coronal and sagittal MIPS were obtained from the axial data set and were submitted for review. Automated dose lowering techniques and/or adjustment according to patient size were utilized for this examination. All measurements were calculated based on NASCET criteria. CT DOSE: 1269.26 mGy.cm Comparison: None available at the time of this dictation. FINDINGS: CT head: There is no acute intracranial hemorrhage or evidence of acute territorial infarction. No shift of the midline structures, mass effect, or extra-axial abnormalities are shown. Lungs and soft tissues are unremarkable. CTA Neck: A 3 vessel aortic arch is shown. There is no significant atherosclerotic plaque in the aortic arch or the origins of the innominate, left common carotid, and left subclavian arteries. There is mild calcified atherosclerotic plaque at the bifurcation of the bilateral common carotid arteries without hemodynamically significant flow stenosis. There is no dissection present. No hemodynamically significant stenosis is seen at the origin of vertebral arteries. The left vertebral artery is dominant. CTA Head: The anterior and posterior cerebral circulations are patent. Mul tifocal stenosis of the vertebral arteries are seen, left greater than right, which however do not appear to be hemodynamically significant. There is atherosclerosis of the carotid siphons and narrowing of the right supraclinoid carotid artery. IMPRESSION: 1. No acute intracranial hemorrhage, evidence of acute territorial infarction, or other acute intracranial disease process. 2. No occlusion, hemodynamically significant stenosis, or dissection in the major cervical arteries. 3. 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 There is narrowing of the right supraclinoid internal carotid artery which may represent borderline hemodynamic stenosis. Assessment of stenosis of the internal carotid arteries is based on NASCET criteria. ACT 112: Negative or not required by law. Electronically signed by: Rc Hill M.D. 07/27/2022 12:16 PM Head CTA 07/27/22 11:38 CT angio neck with con, CT angio head w con, CT head/brain wo con CLINICAL HISTORY: Stroke Like Symptoms TECHNIQUE: Contiguous axial CT images of the head were acquired from the base of the skull to the vertex without intravenous contrast administration. CT angiography of the head and neck was performed following intravenous administration of iodinated contrast. Coronal and sagittal MIPS were obtained from the axial data set and were submitted for review. Automated dose lowering techniques and/or adjustment according to patient size were utilized for this examination. All measurements were calculated based on NASCET criteria. CT DOSE: 1269.26 mGy.cm Comparison: None available at the time of this dictation. FINDINGS: CT head: There is no acute intracranial hemorrhage or evidence of acute territorial infarction. No shift of the midline structures, mass effect, or extra-axial abnormalities are shown. Lungs and soft tissues are unremarkable. CTA Neck: A 3 vessel aortic arch is shown. There is no significant atherosclerotic plaque in the aortic arch or the origins of the innominate, left common carotid, and left subclavian arteries. There is mild calcified atherosclerotic plaque at the bifurcation of the bilateral common carotid arteries without hemodynamically significant flow stenosis. There is no dissection present. No hemodynamically significant stenosis is seen at the origin of vertebral arteries. The left vertebral artery is dominant. CTA Head: The anterior and posterior cerebral circulations are patent. Multifocal stenosis of the vertebral arteries are seen, left greater than right, which however do not appear to be hemodynamically significant. There is atherosclerosis of the carotid siphons and narrowing of the right supraclinoid carotid artery. IMPRESSION: 1. No acute intracranial hemorrhage, evidence of acute territorial infarction, or other acute intracranial disease process. 2. No occlusion, hemodynamically significant stenosis, or dissection in the major cervical arteries. 3. 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 There is narrowing of the right supraclinoid internal carotid artery which may represent borderline hemodynamic stenosis. Assessment of stenosis of the internal carotid arteries is based on NASCET criteria. ACT 112: Negative or not required by law. Electronically signed by: Rc Hill M.D. 07/27/2022 12:16 PM Neck CTA 07/27/22 11:38 CT angio neck with con, CT angio head w con, CT head/brain wo con CLINICAL HISTORY: Stroke Like Symptoms TECHNIQUE: Contiguous axial CT images of the head were acquired from the base of the skull to the vertex without intravenous contrast administration. CT angiography of the head and neck was performed following intravenous administration of iodinated contrast. Coronal and sagittal MIPS were obtained from the axial data set and were submitted for review. Automated dose lowering techniques and/or adjustment according to patient size were utilized for this examination. All measurements were calculated based on NASCET criteria. CT DOSE: 1269.26 mGy.cm Comparison: None available at the time of this dictation. FINDINGS: CT head: There is no acute intracranial hemorrhage or evidence of acute territorial infarction. No shift of the midline structures, mass effect, or extra-axial abnormalities are shown. Lungs and soft tissues are unremarkable. CTA Neck: A 3 vessel aortic arch is shown. There is no significant atherosclerotic plaque in the aortic arch or the origins of the innominate, left common carotid, and left subclavian arteries. There is mild calcified atherosc lerotic plaque at the bifurcation of the bilateral common carotid arteries without hemodynamically significant flow stenosis. There is no dissection present. No hemodynamically significant stenosis is seen at the origin of vertebral arteries. The left vertebral artery is dominant. CTA Head: The anterior and posterior cerebral circulations are patent. Multifocal stenosis of the vertebral arteries are seen, left greater than right, which however do not appear to be hemodynamically significant. There is atherosclerosis of the carotid siphons and narrowing of the right supraclinoid carotid artery. IMPRESSION: 1. No acute intracranial hemorrhage, evidence of acute territorial infarction, or other acute intracranial disease process. 2. No occlusion, hemodynamically significant stenosis, or dissection in the major cervical arteries. 3. 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 There is narrowing of the right supraclinoid internal carotid artery which may represent borderline hemodynamic stenosis. Assessment of stenosis of the internal carotid arteries is based on NASCET criteria. ACT 112: Negative or not required by law. Electronically signed by: Rc Hill M.D. 07/27/2022 12:16 PM Brain MRI 07/27/22 15:39 Brain MRI WITHOUT CONTRAST HISTORY: Slurred speech. Right facial droop. TECHNIQUE: Multiplanar multisequence MRI of the brain was performed without the use of contrast. COMPARISON STUDY: Head CT 07/27/2022. FINDINGS: There is a small area of restricted diffusion within the left frontotemporal region consistent with an acute distal left MCA territory infarct. The midline structures are intact. Mild atrophy and microvascular ischemic changes are noted. There is no mass, hematoma, midline shift. The major vascular flow-voids at the skull base are well-maintained. There is old left basal ganglia lacunar infarct. Prior bilateral lens replacement. The paranasal sinuses and mastoid air cells are clear. IMPRESSION: A small area of restricted diffusion within the left frontotemporal region consistent with an acute distal MCA territory infarct. ACT 112: Negative or not required by law. Electronically signed by: Joselito Weston M.D. 07/28/2022 8:00 AM Hospital Course (1) Acute CVA (cerebrovascular accident): Pt is an 86 yo male with a PMH of prostate cancer, radiation colitis, HTN, type 2 diabetes mellitus, hyperglycemia, idiopathic urticaria who presented as a stroke alert for slurred speech and right arm weakness. 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 2. No occlusion, hemodynamically significant stenosis, or dissection in the major cervical arteries. 3. 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 There is narrowing of the right supraclinoid internal carotid artery which may represent borderline hemodynamic stenosis. CT-H: There is no acute intracranial hemorrhage or evidence of acute territorial infarction. No shift of the midline structures, mass effect, or extra-axial abnormalities are shown. - Prior stenosis ipsilateral to stroke sx, low suspicious for symptomatic carotid dz Carotid Doppler 03/06/2022: Less than 50% stenosis of right and left ICA, greater than 50% stenosis of right external carotid. Anterograde flow bilaterally and vertebrals EKG: Afib with PVCs, rate 86, QTc 402, T wave inversions in lateral leads without ST segment changes - Pt allergic to plavix (hives), but has tolerated aspirin. Took 2 full dose aspirin prior to admission Resume aspirin 81 mg daily - added 20mg atorvastatin - PT/OT recommending d/c to rehab for a short stay d/t being a fall risk; however, pt able to ambulate 250 ft w/ therapy so CM is doubtful that insurance would give auth for rehab - pt agrees w/ home therapy while staying with his girlfriend who can provide help 06/04 - pt agrees to return home alone only after home therapy clears him New onset Afib - [id number] 5 points. High risk. Recommend anticoagulation - Continue metoprolol, rate controlled on admission - Echo showed EF 50-55% with mild inferior, posterior, and inferoapical hypokinesis - Pt is with symptom onset >48 hours before presentation. Started on heparin in ER. Continued heparin until discharge - Shared decision making patient agreeable to long-term anticoagulation - Home on Eliquis in addition to metoprolol (which pt has already been on) Hyperlipidemia Gemfibrozil 600 mg twice daily d/t high TG LDL previously less than 100, 139 02/02, repeat on admission 137 Patient is not sure if he has been statin intolerant in the past, reacted to Plavix but is not sure why he was recommended to be on this. Has discussed a statin trial as outpatient, is willing to try this with monitoring. 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 Originally started on atorvastatin 40 mg, if rash develops add methylprednisolone/Benadryl/cetirizine and discontinue statin - switched to 20 mg atorvastatin, as neuro recommended against high intensity statin Gemfibrozil discontinued given risk of reaction with switch to statin - continue 20 mg atorvastatin, could consider increasing dose in future Elevated troponin Troponin was elevated to 1792 on admission, patient has had no clinical chest pain preceding this, and has no chest pain throughout visit EKG without ST segment changes, nonspecific lateral T wave inversions are present - troponin downtrended, most likely d/t demand w/ afib Hypertension Amlodipine 5 mg daily- held during hospitalization Continue metoprolol 50 mg tartrate twice daily Continue Telmisartan 80 mg p.o. every morning - continue all 3 medications on discharge. - consider sleep study as outpatient. Type II DM Patient denies history of this in self, endorses in father. Chart does have a history of DM, glucose is 166 on admission A1c 6.7 01/30/2022 Diet controlled at home, Overactive bladder Continue trospium (2) Atrial fibrillation, new onset: (3) Elevated troponin: (4) Hypertension: (5) DM type 2 (diabetes mellitus, type 2): Plan Diet: heart healthy, carb consistent DVT ppx: heparin while hospitalized, d/c on eliquis and aspirin Code: full Dispo: girlfriend's home with home therapy Total Time Total Time Spent Total Time Spent (In Minutes): as per attending attestation Discharge Plan Discharge Items Patient Disposition: Home - Home Health Services Reason For Visit: CVA, ELEVATED TROP Discharge Diagnosis: acute, left distal MCA stroke Activity: Per Instructions section Non-emergency contact: Primary Care Provider Call non-emergency contact if: you have any medication questions and your symptoms worsen Follow-up/Referrals: ProDon MD [Primary Care Provider] - 08/05/22 1:30 pm Diet: Carb Consistent or DM2 Addtl Attending Provider Instructions: You were admitted to the hospital for symptoms concerning for a stroke. A head CT and brain MRI revealed that you had a stroke in the left side of your brain. You were treated with aspirin and blood thinning medication. You were also noted to have an abnormal heart rhythm called atrial fibrillation which is new for you. A discharge summary will be sent to your primary care physician to ensure continuity of care. Please bring this discharge summary with you to your next office appointment so that your provider can review it at that time. Medications: Your medication list has been reviewed and reconciled upon discharge to ensure accuracy and continuity of care. An updated list of all your medications is included with your hospital discharge paperwork. Please review this list closely and make note of any changes to your medications. - You are to begin the blood thinner medication Eliquis 5 mg two times per day. This medication helps prevents blood clots (and subsequent strokes) that could be caused by atrial fibrillation. - Also, restart a daily aspirin 81 mg. - A cholesterol medication called atorvastatin was added. This will be 20 mg daily. It is recommended that you stop your previous cholesterol medication, gemfibrozil. - Otherwise, continue your home medications including your blood pressure medications amlodipine and telmisartan. NEW medications include: - eliquis 5 mg twice per day - atorvastatin 20 mg daily - aspirin 81 mg daily Follow up appointments: - Make a follow up appointment with your PCP within the next week. It is very important that you follow up with them shortly after discharge from the hospital. - Keep all of your follow up appointments as already scheduled. If you cannot make an appointment, notify your provider. CONTACT YOUR PRIMARY CARE PROVIDER if you experience any of the following: - Feeling your heart racing or skipping a beat - Difficulty following your treatment plan - Difficulty taking any of your medications CALL 911 OR GO TO THE EMERGENCY DEPARTMENT if you experience any of the following: - Facial drooping or slurred speech - Limb weakness or loss of sensation - Sudden, severe abdominal pain or nausea/vomiting - Severe chest pain or chest pain that radiates to your jaw or arm - Sudden, severe shortness of breath or difficulty breathing Pending Studies at Discharge: No Stand-Alone Forms: [email or web address], Smoking Cessation, Medications to Prevent Stroke Medications and DC Order Prescriptions: New Eliquis 5 mg tablet 5 mg PO BID Qty: 60 0RF atorvastatin 20 mg tablet 20 mg PO DAILY Qty: 30 0RF Continued trospium 20 mg tablet 20 mg PO BID Qty: 180 3RF amlodipine 5 mg tablet 5 mg PO QAM Qty: 90 3RF telmisartan 80 mg tablet 80 mg PO QAM Qty: 90 2RF tamsulosin 0.4 mg Capsule 0.4 mg PO QAM vitamin [id number] 0.5-1 mg Tablet 1 tab PO DAILY cholecalciferol (vitamin D3) [Vitamin D3] 125 mcg (5,000 unit) Tablet 125 mcg PO QPM Discontinued gemfibrozil 600 mg tablet 600 mg PO BID Qty: 180 3RF metoprolol tartrate 50 mg tablet 50 mg PO BID Qty: 180 3RF Discharge Orders: Discharge Order (Routine); Ordered 07/30/22 Ordered By: Maria Luisa Verduzco/Other Patient Handouts: Diabetes: Meal Planning, Type 2 Diabetes Admission Data Admit Date/Time: 07/27/22 13:07 Attending Provider: Verena Le Admit Provider: Gordy Alvarado Primary Care Provider: Don Yeager Other Providers: Gordy Alvarado ; Clemente Dumont ; [facility] ; [place] ; [facility] ; [facility] ; [facility] Other Interventions: Discharge Summary Assessment (RN) Last Done: 07/30/22 12:23 Supervising Physician Co-Signing Physician Notes Resident Physician Supervision Note: I independently interviewed and examined the patient and verified the rodriguez history and physical, reviewed labs and image studies and agree with resident findings and care plan.
--- NOTE | 2022-08-01 10:05 | Pharmacy Report ---
Pharmacist Stroke Counseling - Date of Service August 01, 2022 - Scope: Pharmacy has been consulted to provide medication discharge counseling for this patient admitted with ischemic stroke as per the Pharmacist Discharge Counseling for Stroke Patients Protocol. - Medications on Discharge: Home Medications Medication Instructions Recorded Confirmed cholecalciferol (vitamin D3) 125 125 mcg PO QPM 10/25/21 07/27/22 mcg (5,000 unit) tablet (Vitamin D3) tamsulosin 0.4 mg capsule 0.4 mg PO QAM 07/27/22 07/27/22 vitamin B12 0.5 mg-folic acid 1 mg 1 tab PO DAILY 07/27/22 07/27/22 tablet New Rx's Medication Instructions Recorded trospium 20 mg tablet 20 mg PO BID #180 tabs 04/15/22 amlodipine 5 mg tablet 5 mg PO QAM #90 tabs 07/07/22 telmisartan 80 mg tablet 80 mg PO QAM #90 tabs 07/07/22 apixaban 5 mg tablet (Eliquis) 5 mg PO BID #60 tabs 07/30/22 atorvastatin 20 mg tablet 20 mg PO DAILY #30 tabs 07/30/22 - Action: The above medications, specifically ones for stroke treatment/prophylaxis, have been reviewed in detail with the patient and/or patient distribution sales representative(s) prior to discharge. This includes indication, common adverse reactions, drug int eractions, and medication administration. Medication counseling has been employed using the teach-back method to ensure understanding. - Outcome: The patient and/or patient distribution sales representative(s) have demonstrated understanding of the medications. Additional comments: - Clarified with discharging provider that metoprolol was supposed to be continued despite it being listed in discontinued medications. Discussed with patient and corrected this error, patient demonstrated good understanding and will restart metoprolol 50 mg PO BID. - Patient demonstrated good understanding of medication changes (discontinue gemfibrozil, restart aspirin 81 mg daily, start Eliquis 5 mg BID, and atorvastatin 20 mg daily. Discussed Statin listed in allergy/ADR history (unkn own), but he was unable to confirm what that would have been. He is aware of possible muscle-related side effects and will notify provider if he experiences any. Also aware of increased bleeding risk with Eliquis and aspirin and will look out for serious signs of bleeding. - Patient confirmed that he has appointment with his PCP on Thursday of next week. - Counseling session occurred with patient and patient's friend with patient's permission. No obvious barriers to medication compliance identified. Thank you for allowing pharmacy to be involved in the care of this patient. Tiff burrell call [phone] with any additional questions
--- NOTE | 2022-08-08 11:06 | Coding Query ---
To promote full compliance with coding requirements relating to patient care, provider participation is requested in all cases of chief business development officer uncertainty. Please assist us with the question(s) below: Coding Question(s): The diagnosis below was documented in the 07/29 Progress Note, then subsequently fell off all further documentation. Please indicate if it is still a possible diagnosis or ruled out. Physician's Response(s): MYOCARDIAL INFARCTION TYPE 2 ( x ) Diagnosed and POA ( ) Diagnosed and not POA ( ) Ruled out ( ) Other (please specify) MTDD
== END 2022-07-30 13:58 | disposition home health service (06) | DRG 64 ==
LOC: ED 11:10 → 2N 13:07 → SUATTDRO 13:07 → 2N 17:13

== ENCOUNTER 2024-04-28 09:46 | Observation (INO) ==
--- NOTE | 2024-04-28 10:12 | Emergency Department Note ---
Impression & Plan Ambulatory dysfunction, Elevated troponin, Hypokalemia ED Provider Note NAME: KRISTA BLACKWOOD AGE: 88 SEX: M : 1935 ARRIVES VIA: Walk-In INFORMANT: Patient ED PROVIDER(S): Oscar Russell DO CHIEF COMPLAINT: fall HPI: Patient is an 88-year-old male with a past medical history of a CVA, persistent afib, who presents to the ER following a fall about 5 to 6 weeks ago. He was standing on a rock doing gardening and lost his balance and fell onto the tractor. Since then he has been having bilateral hip pain but has been walking as well as left taveras pain and ankle pain. He denies any dizziness or lightheadedness but notes that he has been a little more unsteady on his feet than he usually is. No chest pain or shortness of breath. No nausea, vomiting, or diarrhea. No dysuria, urgency or frequency. ADDITIONAL HISTORY OBTAINED: is present at bedside who notes that he downplays everything and this has been going on for quite some time. Chronic Medical/Social Conditions Affecting Care: Per HPI PAST MEDICAL HISTORY:See Below PAST SURGICAL HISTORY:See Below FAMILY HISTORY:See Below SOCIAL HISTORY:See Below HOME MEDICATIONS:See Below ALLERGIES:See Below VITALS:See Below PHYSICAL EXAMINATION: GENERAL: alert, well appearing, well nourished, no distress, non-toxic HEAD: normal cephalic, atraumatic EYE EXAM: normal conjunctiva, PERRL and EOM's grossly intact OROPHARYNX: mucous membranes are moist NECK: supple, no nuchal rigidity, no adenopathy, non-tender CHEST: stable to compression anteriorly and posteriorly LUNGS: clear to auscultation. Normal chest wall mechanics HEART: no murmurs, S1 normal and S2 normal ABDOMEN: abdomen soft, non-tender, normo-active bowel sounds, no masses, no rebound or guarding. PELVIS: stable to compression anteriorly and posteriorly BACK: Back is symmetrical on inspection and there is no deformity, no midline tenderness, no CVA tenderness. UPPER EXTREMITIES: full active and passive range of motion of all joints without tenderness to palpation LOWER EXTREMITIES: Flexion-extension bilateral hips knees ankles and EHL intact. Bruise over the left anterior taveras. Skin is intact. NEURO EXAM: Normal sensorium, cranial nerves II-XII intact, normal speech, no weakness of arms, no weakness of legs. No drift. [id number] intact. GCS: 15. MEDICAL DECISION MAKING: Patient is an 88-year-old male who presents to the ER for the below stated complaint. IV was established blood work is obtained. Labs show no significant leukocytosis or anemia. BMP with mild hypokalemia 3.3. Troponin was mildly elevated. Lipase was unremarkable. X-ray showed no acute fractures. CT head was negative. Patient was updated bedside. Discussed with the who is present at bedside. Patient was discussed with the hospitalist for further evaluation management treatment. Consults/Care Managements Discussions: Per [facility] Triage Nursing notes reviewed. Limited review of prior medical records performed Vital Signs: reviewed and remarkable for HTN Differential diagnosis: Differential diagnoses include major intracranial, cervical, spinal, thoracic, abdominal, pelvic and neurologic injury. Fracture, contusion, sprain, strain, laceration, abrasions included as well. ER treatment provided: See below Diagnostics interpreted by me include EKG and cardiac monitoring as listed below: -Cardiac Monitoring: An order was placed for continuous cardiac monitoring. The monitor shows a rate of 82 withafib rhythm. -ECG: A-fib rate 81 PVCs Left axis QTc 446 -Laboratory studies:Interpreted by me as stated above in MDM and shown below. 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 Hyperlipidemia Dysarthria Urinary symptom or sign Prostate cancer Hypertension DM type 2 (diabetes mellitus, type 2) (Acute) Hyperglycemia (Acute) Male erectile disorder of organic origin (Acute) Medical History Acute right hemiparesis Elevated troponin Atrial fibrillation, new onset Acute CVA (cerebrovascular accident) Urinary symptom or sign Prostate cancer History of idiopathic urticaria Elevated hemoglobin A1c Overactive bladder Radiation colitis Prostate cancer Idiopathic urticaria Hypertension Hyperlipidemia Surgical History History of left cataract extraction History of colonoscopy History of coronary artery stent placement History of tonsillectomy History of prostate surgery S/P hernia repair Family History Father Myocardial infarction Diabetes Heart disease Hypertension Mother Pancreatic cancer Sister Policasandra Denies family history of Colon cancer Ovarian cancer Prostate cancer Breast cancer Social History Smoking Status: Former smoker Age Started Using Tobacco: 17; Age Quit Using Tobacco: 40; packs per day: 2; Cigarettes Per Day: 3-4 packs/day quit 1975; Second Hand Exposure: Yes; Do You Dip or Chew Tobacco: No; Hx Alcohol Use: Yes Alcohol type: beer Hx Substance Use: No Preferred Language: Lithuanian Communication Ability: Effective Visual Impairment: No Limitations Hearing Ability: Normal Communication Assistant Required: No Beliefs That Will Affect Care: None marital status: Single Current Living Situation: Alone current occupational status: retired Feels Safe at Home: Yes Childhood Exposure to Second-Hand Smoke: Yes Dental Care, Regularly: Yes Physical Activity Frequency: 3-4 Times per Week Seatbelt Use: always Sunscreen Use: No Assistive Devices: Cane, Glasses and Walker Allergies Allergies Allergy/AdvReac Type Severity Reaction Status Date / Time clopidogrel Allergy Intermediate HIVES Verified 01/28/24 11:27 Iodinated Contrast Media Allergy Intermediate HIVES Verified 01/28/24 11:27 pollen extracts Allergy Mild Unverified 01/28/24 11:27 [id number] Reductase AdvReac Unknown Unknown Verified 01/28/24 11:27 Inhibitor Home Meds Home Medications Medication Instructions Recorded Confirmed cholecalciferol (vitamin D3) 125 125 mcg PO QPM 10/25/21 04/28/24 mcg (5,000 unit) tablet (Vitamin D3) vitamin B12 0.5 mg-folic acid 1 mg 1 tab PO DAILY 07/27/22 04/28/24 tablet trospium 20 mg tablet 20 mg PO UD 04/28/24 04/28/24 Previous Rx's Medication Instructions Recorded apixaban 5 mg tablet (Eliquis) 5 mg PO BID #180 tabs 07/20/23 atorvastatin 20 mg tablet 20 mg PO DAILY #90 tabs 07/20/23 metoprolol tartrate 50 mg tablet 50 mg PO BID #180 tabs 07/20/23 sildenafil (pulm.hypertension) 20 20 mg PO ONCE PRN sexual activity 10/14/23 mg tablet #15 tabs nystatin 100,000 unit/gram topical 1 applic topical BID #30 grams 12/04/23 cream telmisartan 80 mg tablet 80 mg PO QAM #90 tabs 12/30/23 nystatin 100,000 unit/gram topical 1 applic topical BID #60 grams 01/22/24 powder vibegron 75 mg tablet (Gemtesa) 75 mg PO DAILY #90 tabs 02/29/24 Results & Data (ED) Vital Signs Vital Signs - 24 hr 04/28/24 09:53 04/28/24 10:21 04/28/24 12:00 Temperature 36.3 C L Temperature Source Temporal Artery Scan Pulse Rate 85 85 Pulse Rate [Apical] 85 Respiratory Rate 20 22 Respiratory Effort / Characteristics Non-Labored Spontaneous Respiratory Depth Normal Blood Pressure 158/97 H Blood Pressure [Right Arm] 190/116 H Blood Pressure Mean 117 Blood Pressure Mean [Right Arm] 140 Pulse Oximetry 97 95 Oxygen Delivery Method Room Air Room Air Sepsis Recent Fever Within 48 Hours No Sepsis New/Unexplained Change in Mental Status N/A Sepsis Action Taken by Nursing No Action Required 04/28/24 12:00 04/28/24 14:44 04/28/24 14:53 Temperature Temperature Source Pulse Rate 83 Pulse Rate [Apical] 79 Respiratory Rate 18 Respiratory Effort / Characteristics Respiratory Depth Blood Pressure Blood Pressure [Right Arm] 154/98 H Blood Pressure Mean Blood Pressure Mean [Right Arm] 116 Pulse Oximetry 96 Oxygen Delivery Method Room Air Room Air Sepsis Recent Fever Within 48 Hours Sepsis New/Unexplained Change in Mental Status Sepsis Action Taken by Nursing Laboratory Data 04/28/24 10:30 04/28/24 10:30 Lab Results 04/28/24 04/28/24 Range/Units 10:30 12:18 WBC 6.51 (4.8-10.8) K/ul RBC 4.76 (4.70-6.10) M/uL Hgb 13.9 L (14.0-18.0) g/dl Hct 41.5 L (42.0-52.0) % MCV 87.2 (80.0-100.0) fL MCH 29.2 (25.0-34.0) pg MCHC 33.5 (32.0-36.0) g/dL RDW Std Deviation 43.6 (36.4-46.3) fL RDW Coeff of [place] 13.6 (11.5-14.5) % Plt Count 240 (130-400) K/uL MPV 11.5 (9.4-12.4) fL Immature Gran % (Auto) 0.2 % Neut % (Auto) 70.6 % Lymph % (Auto) 13.8 % [place] % (Auto) 13.1 % Eos % (Auto) 1.5 % Baso % (Auto) 0.8 % Neut # (Auto) 4.60 (1.40-6.50) K/uL Lymph # (Auto) 0.90 L (1.20-3.40) K/uL [place] # (Auto) 0.85 H (0.11-0.59) K/uL Eos # (Auto) 0.10 (0.00-0.50) K/uL Baso # (Auto) 0.05 (0.00-0.20) K/uL Immature Gran # (Auto) 0.01 (0.01-0.20) K/uL Sodium 139 (136-145) mmol/L Potassium 3.3 L (3.5-5.1) mmol/L Chloride 104 (98-107) mmol/L Carbon Dioxide 26 (21-32) mmol/L Anion Gap 9 (3-11) BUN 26 H (6-23) mg/dl Creatinine 1.37 (0.6-1.4) mg/dl Est Cr Clr Drug Dosing Not Reportable Est GFR ( Amer) 53.7 ml/min Est GFR (Non-Af Amer) 46.4 ml/min BUN/Creatinine Ratio 19.0 (10-20) Glucose 167 H (70-99(Fasting)) mg/dl Calcium 10.0 (8.6-10.3) mg/dl Total Bilirubin 1.0 (0.2-1.0) mg/dl AST 18 (13-39) U/L ALT 18 (7-52) U/L Alkaline Phosphatase 103 (34-104) U/L Troponin I High Sens 32.5 H 28.7 H (0-20) pg/ml Total Protein 6.5 (6.0-8.3) gm/dl Albumin 4.1 (3.4-5.0) gm/dl Globulin 2.4 L (2.5-4.0) gm/dl Albumin/Globulin Ratio 1.7 (0.9-2) Lipase 14 (11-82) U/L Imaging Data Radiologist's Impression: Ankle X-Ray 04/28/24 10:08 XR ankle LT min 3V routine CLINICAL HISTORY: Left ankle pain. COMPARISON STUDY: None. FINDINGS: No fracture or dislocation within the left ankle. Diffuse soft tissue swelling. No radiopaque foreign bodies. 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 There is a small plantar heel spur. IMPRESSION: No fracture or dislocation within the left ankle. ACT 112: Negative or not required by law. Electronically signed by: Joselito Weston M.D. 04/28/2024 11:27 AM Chest X-Ray 04/28/24 10:08 XR chest 1V portable CLINICAL HISTORY: Chest pain, nonspecific. COMPARISON STUDY: Chest radiograph July 27, 2022. FINDINGS: Lung volumes are normal. Lungs are clear. There is no pneumothorax or pleural effusion. Moderate cardiomegaly is unchanged. Mediastinal contours are normal. There is no evidence for pulmonary edema. Old left-sided rib fractures are again noted. There is also an old distal left clavicular fracture. IMPRESSION: No acute cardiopulmonary findings. No change in appearance of the chest. ACT 112: Negative or not required by law. Electronically signed by: Sam Winter M.D. 04/28/2024 11:[address] 04/28/24 10:08 CT OF THE HEAD WITHOUT CONTRAST CLINICAL HISTORY: fall COMPARISON STUDY: Head CT, CTA of the head and MRI of the brain July 27, 2022. CT DOSE: 703.85 mGy.cm TECHNIQUE: Helical axial images of the head were obtained without IV contrast. Automated exposure control was utilized for the study. A dose lowering technique was utilized adhering to the principles of ALARA. FINDINGS: No acute intracranial hemorrhage, midline shift or mass effect is present. White matter hypodense foci suggest small vessel disease. Several foci of encephalomalacia within the left cerebral hemisphere suggests old infarcts, as shown on previous MRI. The ventricular system is unremarkable. The basal cisterns are patent. No extra-axial collections are present. There are no findings to suggest acute dural sinus thrombosis or acute territorial infarct. No significant calvarial abnormalities are present. Visualized portions of the sinuses and mastoid air cells are clear. IMPRESSION: 1. No acute intracranial findings. 2. No calvarial fractures. ACT 112: Negative or not required by law. Electronically signed by: Sam Winter M.D. 04/28/2024 11:15 AM Pelvis X-Ray 04/28/24 10:08 XR pelvis 1-2V routine CLINICAL HISTORY: Fall. COMPARISON: Treatment planning CT March 03, 2007. FINDINGS: Sacroiliac joints and symphysis pubis are intact. There are no acute fractures within the pelvis or hips. There is moderate bilateral hip joint space narrowing with osteophytosis. Incidental note is made of brachytherapy seeds within the prostate. IMPRESSION: No fractures within the pelvis or hips. ACT 112: Negative or not required by law. Electronically signed by: Sam Winter M.D. 04/28/2024 11:17 AM Tibia/Fibula X-Ray 04/28/24 10:08 XR tibia fibula LT 2V HISTORY: 88 years-old Male l tib acute pain of the left lower leg and ankle COMPARISON: Ankle radiographs of same day TECHNIQUE: 2 views of the left tibia and fibula FINDINGS: Mild diffuse soft tissue swelling. Osteoarthritis of the knee and ankle. Arterial calcifications. No acute fracture, dislocation or osseous erosion is identified. IMPRESSION: Soft tissue swelling without acute fracture identified. ACT 112: Negative or not required by law. The above report was generated using voice recognition software. It may contain grammatical, syntax or spelling errors. Electronically signed by: Joselito Carlson M.D. 04/28/2024 11:22 AM Discharge Plan Visit Data Chief Complaint: Leg Injury/Pain Stated Complaint: FALL, LEGS, GROIN AND DOWN HURTS, BALANCE ISSUES ED Provider: Oscar Russell Discharge Problem: Ambulatory dysfunction, Elevated troponin, Hypokalemia Forms Stand Alone Forms: Staples Prescriptions Prescriptions: No Action nystatin 100,000 unit/gram cream 1 applic topical BID Qty: 30 2RF telmisartan 80 mg tablet 80 mg PO QAM Qty: 90 3RF Gemtesa 75 mg tablet 75 mg PO DAILY Qty: 90 4RF sildenafil (pulm.hypertension) 20 mg tablet 20 mg PO ONCE PRN (Reason: sexual activity) Qty: 15 6RF Rx Instructions: take 1-5 tablets as needed do not take more than 5 tablets in a 24 hour period Eliquis 5 mg tablet 5 mg PO BID Qty: 180 3RF atorvastatin 20 mg tablet 20 mg PO DAILY Qty: 90 3RF metoprolol tartrate 50 mg tablet 50 mg PO BID Qty: 180 3RF nystatin 100,000 unit/gram powder 1 applic topical BID Qty: 60 0RF vitamin [id number] acid 0.5-1 mg Tablet 1 tab PO DAILY cholecalciferol (vitamin D3) [Vitamin D3] 125 mcg (5,000 unit) Tablet 125 mcg PO QPM trospium 20 mg tablet 20 mg PO UD Rx Instructions: 20 mg po bid on hold Referrals Referrals: Don Yeager MD [Primary Care Provider] -
[2024-04-28 10:57] LABS: Basophils # (auto) 0.05 K/uL (0.00-0.20); Basophils % (auto) 0.8 %; Eosinophils % (auto) 1.5 %; Hematocrit (blood only) 41.5 % (42.0-52.0); Hemoglobin 13.9 g/dl (14.0-18.0); Immature Granulocytes # (auto) 0.01 K/uL (0.01-0.20); Immature Granulocytes % (auto) 0.2 %; Lymphocytes % (auto) 13.8 %; Mean Corpuscular Hemoglobin 29.2 pg (25.0-34.0); Mean Corpuscular Hgb Conc 33.5 g/dL (32.0-36.0); Mean Corpuscular Volume 87.2 fL (80.0-100.0); Mean Platelet Volume 11.5 fL (9.4-12.4); Monocytes # (auto) 0.85 K/uL (0.11-0.59); Monocytes % (auto) 13.1 %; Neutrophils % (auto) 70.6 %; Platelet Count 240 K/uL (130-400); RDW Coefficient of Variation 13.6 % (11.5-14.5); RDW Standard Deviation 43.6 fL (36.4-46.3); Red Blood Count 4.76 M/uL (4.70-6.10); White Blood Count 6.51 K/ul (4.8-10.8)
[2024-04-28 11:12] LABS: Albumin Level 4.1 gm/dl (3.4-5.0); Anion Gap 9 (3-11); Carbon Dioxide 26 mmol/L (21-32); Chloride 104 mmol/L (98-107); Potassium 3.3 mmol/L (3.5-5.1); Sodium 139 mmol/L (136-145)
--- NOTE | 2024-04-28 11:16 | CT Scan Report ---
CT OF THE HEAD WITHOUT CONTRAST CLINICAL HISTORY: fall COMPARISON STUDY: Head CT, CTA of the head and MRI of the brain July 27, 2022. CT DOSE: 703.85 mGy.cm TECHNIQUE: Helical axial images of the head were obtained without IV contrast. Automated exposure con trol was utilized for the study. A dose lowering technique was utilized adhering to the principles o f ALARA. FINDINGS: No acute intracranial hemorrhage, midline shift or mass effect is present. White matter hyp odense foci suggest small vessel disease. Several foci of encephalomalacia within the left cerebral h emisphere suggests old infarcts, as shown on previous MRI. The ventricular system is unremarkable. Th e basal cisterns are patent. No extra-axial collections are present. There are no findings to suggest acute dural sinus thrombosis or acute territorial infarct. No significant calvarial abnormalities ar e present. Visualized portions of the sinuses and mastoid air cells are clear. IMPRESSION: 1. No acute intracranial findings. 2. No calvarial fractures. ACT 112: Negative or not required by law. Electronically signed by: Sam Winter M.D. 04/28/2024 11:15 AM
[2024-04-28 11:18] LABS: Alanine Aminotransferase 18 U/L (7-52); Albumin Globulin Ratio 1.7 (0.9-2); Alkaline Phosphatase 103 U/L (34-104); Aspartate Aminotransferase 18 U/L (13-39); Blood Urea Nitrogen 26 mg/dl (6-23); Est GFR (African American) 53.7 ml/min; Est GFR (Non-African American) 46.4 ml/min; Globulin 2.4 gm/dl (2.5-4.0); Glucose 167 mg/dl (70-99(Fasting)); Lipase 14 U/L (11-82); Total Protein 6.5 gm/dl (6.0-8.3)
--- NOTE | 2024-04-28 11:18 | XRay Report ---
XR chest 1V portable CLINICAL HISTORY: Chest pain, nonspecific. COMPARISON STUDY: Chest radiograph July 27, 2022. FINDINGS: Lung volumes are normal. Lungs are clear. There is no pneumothorax or pleural effusion. Mod erate cardiomegaly is unchanged. Mediastinal contours are normal. There is no evidence for pulmonary edema. Old left-sided rib fractures are again noted. There is also an old distal left clavicular frac ture. IMPRESSION: No acute cardiopulmonary findings. No change in appearance of the chest. ACT 112: Negative or not required by law. Electronically signed by: Sam Winter M.D. 04/28/2024 11:16 AM
--- NOTE | 2024-04-28 11:18 | XRay Report ---
XR pelvis 1-2V routine CLINICAL HISTORY: Fall. COMPARISON: Treatment planning CT March 03, 2007. FINDINGS: Sacroiliac joints and symphysis pubis are intact. There are no acute fractures within the pelvis or hips. There is moderate bilateral hip joint space narrowing with osteophytosis. Incidental note is made of brachytherapy seeds within the prostate. IMPRESSION: No fractures within the pelvis or hips. ACT 112: Negative or not required by law. Electronically signed by: Sam Winter M.D. 04/28/2024 11:17 AM
[2024-04-28 11:22] LABS: Troponin I High Sensitivity 32.5 pg/ml (0-20)
--- NOTE | 2024-04-28 11:23 | XRay Report ---
XR tibia fibula LT 2V HISTORY: 88 years-old Male l tib acute pain of the left lower leg and ankle COMPARISON: Ankle radiographs of same day TECHNIQUE: 2 views of the left tibia and fibula FINDINGS: Mild diffuse soft tissue swelling. Osteoarthritis of the knee and ankle. Arterial calcifications. No acute fracture, dislocation or osseous erosion is identified. IMPRESSION: Soft tissue swelling without acute fracture identified. ACT 112: Negative or not required by law. The above report was generated using voice recognition software. It may contain grammatical, syntax o r spelling errors. Electronically signed by: Joselito Carlson M.D. 04/28/2024 11:22 AM
--- NOTE | 2024-04-28 11:28 | XRay Report ---
XR ankle LT min 3V routine CLINICAL HISTORY: Left ankle pain. COMPARISON STUDY: None. FINDINGS: No fracture or dislocation within the left ankle. Diffuse soft tissue swelling. No radiopaq ue foreign bodies. 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 There is a small plantar heel spur. IMPRESSION: No fracture or dislocation within the left ankle. ACT 112: Negative or not required by law. Electronically signed by: Joselito Weston M.D. 04/28/2024 11:27 AM
--- NOTE | 2024-04-28 12:06 | History & Physical Report ---
Date of Service April 28, 2024 History of Present Illness Primary Care Provider: Don Yeager MD Mario is an 88-year-old male with a past medical history of persistent atrial fibrillation, hyperlipidemia, hypertension, CAD with history of LAD PCI present ed to the ER for evaluation of bilateral hip pain with worsening left taveras pain after a fall 6 weeks ago. PCP note reviewed. Per outpatient referral note patient had been slurring words and forgetful and more altered compared to his baseline for approximately 6 days. Patient initially was unwilling to be seen by an TAY, and was recommended for ER evaluation for potential stroke due to sudden onset of unsteadiness, speech change, joint pain Patient is anticoagulated on Eliquis for history of A-fib X-ray of the left tib/fib: Soft tissue swelling without fracture Pelvis x-ray: No fracture in the pelvis or hips CThead: No acute intracranial findings, no calvarial fractures. Foci of encephalomalacia suggestive of old infarcts, consistent with left MCA territory infarct seen on 2021 MRI Chest x-ray: No acute finding Left ankle x-ray: No acute fracture or dislocation CBC with mild stable anemia uptrending from prior otherwise unremarkable. BMP with potassium 3.3, repleted. Creatinine is near baseline. Patient has a history of CAD/PCI. Troponin 32.5 on admission EKG independently reviewed. A-fib with PVCs. No territorial ST/T wave changes Echo 2021 with EF 50-55%, mild inferior hypokinesis, mild apical hypokinesis, mild septal hypokinesis Per Pt: [] [] [] [] Allergies Allergy/AdvReac Type Severity Reaction Status Date / Time clopidogrel Allergy Intermediate HIVES Verified 01/28/24 11:27 Iodinated Contrast Media Allergy Intermediate HIVES Verified 01/28/24 11:27 pollen extracts Allergy Mild Unverified 01/28/24 11:27 [id number]-[id number] Reductase AdvReac Unknown Unknown Verified 01/28/24 11:27 Inhibitor Home Medications Medication Instructions Recorded Confirmed Type cholecalciferol (vitamin D3) 125 125 mcg PO QPM 10/25/21 01/28/24 History mcg (5,000 unit) tablet (Vitamin D3) vitamin B12 0.5 mg-folic acid 1 mg 1 tab PO DAILY 07/27/22 01/28/24 History tablet aspirin 81 mg capsule 81 mg PO DAILY 10/06/22 01/28/24 History trospium 20 mg tablet 20 mg PO BID #180 tabs 04/27/23 01/22/24 Rx apixaban 5 mg tablet (Eliquis) 5 mg PO BID #180 tabs 07/20/23 01/28/24 Rx atorvastatin 20 mg tablet 20 mg PO DAILY #90 tabs 07/20/23 01/28/24 Rx metoprolol tartrate 50 mg tablet 50 mg PO BID #180 tabs 07/20/23 01/28/24 Rx sildenafil (pulm.hypertension) 20 20 mg PO ONCE PRN sexual activity 10/14/23 01/28/24 Rx mg tablet #15 tabs nystatin 100,000 unit/gram topical 1 applic topical BID #30 grams 12/04/23 01/28/24 Rx cream telmisartan 80 mg tablet 80 mg PO QAM #90 tabs 12/30/23 01/28/24 Rx nystatin 100,000 unit/gram topical 1 applic topical BID #60 grams 01/22/24 Rx powder vibegron 75 mg tablet (Gemtesa) 75 mg PO DAILY #90 tabs 02/29/24 Rx Past Med/Surg History Problem List History of CVA (cerebrovascular accident) Persistent atrial fibrillation Frequent headaches Yeast dermatitis Antiplatelet or antithrombotic long-term use Chronic anticoagulation Presence of drug coated stent in LAD coronary artery Hyperlipidemia Dysarthria Urinary symptom or sign Prostate cancer Hypertension DM type 2 (diabetes mellitus, type 2) (Acute) Hyperglycemia (Acute) Male erectile disorder of organic origin (Acute) Medical History Acute right hemiparesis Elevated troponin Atrial fibrillation, new onset Acute CVA (cerebrovascular accident) Urinary symptom or sign Prostate cancer History of idiopathic urticaria Elevated hemoglobin A1c Overactive bladder Radiation colitis Prostate cancer Idiopathic urticaria Hypertension Hyperlipidemia Surgical History History of left cataract extraction History of colonoscopy History of coronary artery stent placement History of tonsillectomy History of prostate surgery S/P hernia repair Family History Father Myocardial infarction Diabetes Heart disease Hypertension Mother Pancreatic cancer Sister Poliomyelitis Denies family history of Colon cancer Ovarian cancer Prostate cancer Breast cancer Social History Smoking Status: Former smoker Age Started Using Tobacco: 17; Age Quit Using Tobacco: 40; packs per day: 2; Cigarettes Per Day: 3-4 packs/day quit 1975; Second Hand Exposure: Yes; Do You Dip or Chew Tobacco: No; Hx Alcohol Use: Yes Alcohol type: beer Hx Substance Use: No Preferred Language: Yoruba Communication Ability: Effective Visual Impairment: No Limitations Hearing Ability: Normal Manufacturing 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 Required: No Beliefs That Will Affect Care: None marital status: Single Current Living Situation: Alone current occupational status: retired Feels Safe at Home: Yes Childhood Exposure to Second-Hand Smoke: Yes Dental Care, Regularly: Yes Physical Activity Frequency: 3-4 Times per Week Seatbelt Use: always Sunscreen Use: No Assistive Devices: Cane, Glasses and Walker Results & Data Results & Data Vital Signs (Past 12 Hours) Vital Signs Temp Pulse Resp BP Pulse Ox O2 Del Method 04/28/24 10:21 85 04/28/24 09:53 36.3 C L 85 20 158/97 H 97 Room Air PG Care Time/CCT Total # of Minutes Spent Total Time Spent with Patient: Total time spent is greater than 50% in coordination of care (as documented) at patient's floor/unit and/or counseling patient: Coding
--- NOTE | 2024-04-28 12:54 | History & Physical Report ---
Date of Service April 28, 2024 Assessment & Plan (1) Ambulatory dysfunction: Plan: Patient fell 4-5 weeks ago and injured his left leg; he reports he is at his leg about and has felt off balance since then Hx of vertigo, but patient reports it does not feel like "dizziness" or "lightheadedness" Imaging without acute fractures Acetaminophen as needed for pain PT/OT consulted Fall precautions Case management consulted for rehab upon discharge A.m. 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 Patient reports he is not currently taking his aspirin Reports he was taken off this by cardiology, but review of most recent cardiology note recommends continuing aspirin Cerebellar stroke still in differential Will obtain brain MRI without contrast (3) Persistent atrial fibrillation: Plan: Rate controlled Continue Eliquis, metoprolol (4) DM type 2 (diabetes mellitus, type 2): Plan: Last A1c at 6.6% on 01/18/2024 Patient is not currently on home DM medications SSI with target BSG range 110-140mg/dL, CF 50, carb ratio 15 T2DM diet BSG ACHS Adjust regimen as needed AM A1c (5) Hypokalemia: Plan: Mild; K 3.3 on arrival Potassium chloride 20mEq p.o. x 1 Recheck am K (6) Frequent headaches: (7) Hyperlipidemia: (8) Hypertension: (9) Elevated troponin: Plan Disposition: Admit to [facility] telemetry Full code Heart healthy, T2DM diet VTE PPx: On Eliquis History of Present Illness Chief Complaint: Recurrent falls, generalized weakness Primary Care Provider: Don Yeager MD Mario is a 88-year-old male with PMH of persistent atrial fibrillation (on apixaban), T2DM, HTN, prostate cancer, HLD, drug-eluting stents, and CVA. He presented on 04/28 for ambulatory dysfunction and bruising on his left leg after he fell 4 to 5 weeks ago. He reports that he tripped outdoors and slammed his left leg into a rock. He believes he might of hit his head on the dirt. No LOC, but he did feel off balance prior to fall. He denies dizziness like the room is spinning, or lightheadedness like he is going to pass out, but has difficulty describing why he feels like his head is "off". When asked if it feels like the patient is "drunk" when he walks, he says it sometimes feels like that. He endorses that his ambulatory dysfunction is a combination of both his legs giving out, and him feeling off balance for an unknown reason. At present, he does endorse intermittent left lower leg pain, but reports he is able to bear weight on it. Bending the knee sometimes triggers the pain. He is not taking any pain medication for this. No radiation up the leg to the back. Patient took his regular morning medicine today. He denies any recent falls. He does not use ambulatory assist devices such as a cane or walker. His most difficulty walking is when he goes down steps, and he does have steps in his house. Both the right and left legs can give out at any time. He does have history of vertigo as well but does not take medication for this. History of a stroke, however patient is not currently on aspirin, and reports he has been off it for several months. Patient's friend (Abbey) is present in the room and provides additional history; she reports that he has had occasional difficulty with speaking over the past year ever since his stroke, but it does get worse at times; she denies any facial droop. He denies alcohol use, tobacco use, or smoking. Patient is hypertensive at 190/116 at time of admission; vitals otherwise stable. ED course: ROS: Patient endorses feeling off balance, ambulatory dysfunction, left leg pain, diarrhea, and intermittent numbness/tingling in leg joints (L>R). Patient denies fever, chills, night-sweats, facial droop, CP, SOB, pleuritic CP, abdominal pain, N/V, or change in urinary/bowel habits. Allergies Allergy/AdvReac Type Severity Reaction Status Date / Time clopidogrel Allergy Intermediate HIVES Verified 01/28/24 11:27 Iodinated Contrast Media Allergy Intermediate HIVES Verified 01/28/24 11:27 pollen extracts Allergy Mild Unverified 01/28/24 11:27 [id number] Reductase AdvReac Unknown Unknown Verified 01/28/24 11:27 Inhibitor Home Medications Medication Instructions Recorded Confirmed Type cholecalciferol (vitamin D3) 125 125 mcg PO QPM 10/25/21 04/28/24 History mcg (5,000 unit) tablet (Vitamin D3) vitamin B12 0.5 mg-folic acid 1 mg 1 tab PO DAILY 07/27/22 04/28/24 History tablet apixaban 5 mg tablet (Eliquis) 5 mg PO BID #180 tabs 07/20/23 04/28/24 Rx atorvastatin 20 mg tablet 20 mg PO DAILY #90 tabs 07/20/23 04/28/24 Rx metoprolol tartrate 50 mg tablet 50 mg PO BID #180 tabs 07/20/23 04/28/24 Rx sildenafil (pulm.hypertension) 20 20 mg PO ONCE PRN sexual activity 10/14/23 04/28/24 Rx mg tablet #15 tabs nystatin 100,000 unit/gram topical 1 applic topical BID #30 grams 12/04/23 04/28/24 Rx cream telmisartan 80 mg tablet 80 mg PO QAM #90 tabs 12/30/23 04/28/24 Rx nystatin 100,000 unit/gram topical 1 applic topical BID #60 grams 01/22/24 04/28/24 Rx powder vibegron 75 mg tablet (Gemtesa) 75 mg PO DAILY #90 tabs 02/29/24 04/28/24 Rx trospium 20 mg tablet 20 mg PO UD 04/28/24 04/28/24 History Past Med/Surg History Problem List (Updated 04/28/24 @ 15:02 by Oscar Russell DO) Hypokalemia (Acute) Elevated troponin (Acute) Ambulatory dysfunction (Acute) Ambulatory dysfunction History of CVA (cerebrovascular accident) Persistent atrial fibrillation Frequent headaches Yeast dermatitis Antiplatelet or antithrombotic long-term use Chronic anticoagulation Presence of drug coated stent in LAD coronary artery Hyperlipidemia Dysarthria Urinary symptom or sign Prostate cancer Hypertension DM type 2 (diabetes mellitus, type 2) (Acute) Hyperglycemia (Acute) Male erectile disorder of organic origin (Acute) Medical History Acute right hemiparesis Elevated troponin Atrial fibrillation, new onset Acute CVA (cerebrovascular accident) Urinary symptom or sign Prostate cancer History of idiopathic urticaria Elevated hemoglobin A1c Overactive bladder Radiation colitis Prostate cancer Idiopathic urticaria Hypertension Hyperlipidemia Surgical History History of left cataract extraction History of colonoscopy History of coronary artery stent placement History of tonsillectomy History of prostate surgery S/P hernia repair Family History Father Myocardial infarction Diabetes Heart disease Hypertension Mother Pancreatic cancer Sister Policasandra Denies family history of Colon cancer Ovarian cancer Prostate cancer Breast cancer Social History Smoking Status: Former smoker Age Started Using Tobacco: 17; Age Quit Using Tobacco: 40; packs per day: 2; Cigarettes Per Day: 3-4 packs/day quit 1975; Second Hand Exposure: Yes; Do You Dip or Chew Tobacco: No; Hx Alcohol Use: Yes Alcohol type: beer Hx Substance Use: No Preferred Language: Kiswahili Communication Ability: Effective Visual Impairment: No Limitations Hearing Ability: Normal Hospitality Job Titles Required: No Beliefs That Will Affect Care: None marital status: Single Current Living Situation: Alone current occupational status: retired Feels Safe at Home: Yes Childhood Exposure to Second-Hand Smoke: Yes Dental Care, Regularly: Yes Physical Activity Frequency: 3-4 Times per Week Seatbelt Use: always Sunscreen Use: No Assistive Devices: Cane, Glasses and Walker Review of Systems Review of Systems: See HPI above Physical Exam Physical Exam: General: no acute distress; pleasant affect; non-toxic appearing; well- nourished; cooperative; SpO2 95% on RA HEENT: normocephalic, atraumatic; no scleral icterus; PERRLA; vision and hearing grossly intact Neck: supple; no lymphadenopathy; trachea midline Skin: warm, dry without signs of tenting; no cyanosis; no rashes, bruising, lesions, or erythema noted CV: chest wall NTP; RRR; S1/S2 normal; no murmurs/rubs/gallops; pulses intact and symmetric at radial, DP, and PT Lungs: no acute respiratory distress; symmetrical chest wall expansion; clear breath sounds across all lung jones w/o adventitious sounds; no wheezing ABD: Soft, NTP; BS present; no rebound/guarding; no distention MSK: no tics or fasciculations; purple bruise noted on the lateral/anterior aspect of the left taveras; 5/5 strength in the lower extremities bilaterally with plantarflexion/dorsiflexion, and bending knees bilaterally Neuro: A&Ox3; normal mood and affect; fluent speech; no facial droop; no focal deficits; sensation grossly intact in the LEs b/l Results & Data Results & Data Vital Signs (Past 12 Hours) Vital Signs Temp Pulse Pulse Resp BP BP Pulse Ox 04/28/24 12:00 04/28/24 12:00 85 22 190/116 H 95 04/28/24 10:21 85 04/28/24 09:53 36.3 C L 85 20 158/97 H 97 O2 Del Method 04/28/24 12:00 Room Air 04/28/24 12:00 Room Air 04/28/24 10:21 04/28/24 09:53 Room Air Laboratory Results Abnormal lab results 04/28/24 Range/Units 10:30 Hgb 13.9 L (14.0-18.0) g/dl Hct 41.5 L (42.0-52.0) % Lymph # (Auto) 0.90 L (1.20-3.40) K/uL [place] # (Auto) 0.85 H (0.11-0.59) K/uL Potassium 3.3 L (3.5-5.1) mmol/L BUN 26 H (6-23) mg/dl Glucose 167 H (70-99(Fasting)) mg/dl Troponin I High Sens 32.5 H (0-20) pg/ml Globulin 2.4 L (2.5-4.0) gm/dl Diagnostic Findings Ankle X-Ray 04/28/24 10:08 XR ankle LT min 3V routine CLINICAL HISTORY: Left ankle pain. COMPARISON STUDY: None. FINDINGS: No fracture or dislocation within the left ankle. Diffuse soft tissue swelling. No radiopaque foreign bodies. 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 There is a small plantar heel spur. IMPRESSION: No fracture or dislocation within the left ankle. ACT 112: Negative or not required by law. Electronically signed by: Joselito Weston M.D. 04/28/2024 11:27 AM Chest X-Ray 04/28/24 10:08 XR chest 1V portable CLINICAL HISTORY: Chest pain, nonspecific. COMPARISON STUDY: Chest radiograph July 27, 2022. FINDINGS: Lung volumes are normal. Lungs are clear. There is no pneumothorax or pleural effusion. Moderate cardiomegaly is unchanged. Mediastinal contours are normal. There is no evidence for pulmonary edema. Old left-sided rib fractures are again noted. There is also an old distal left clavicular fracture. IMPRESSION: No acute cardiopulmonary findings. No change in appearance of the chest. ACT 112: Negative or not required by law. Electronically signed by: Sam Winter M.D. 04/28/2024 11:[address] 04/28/24 10:08 CT OF THE HEAD WITHOUT CONTRAST CLINICAL HISTORY: fall COMPARISON STUDY: Head CT, CTA of the head and MRI of the brain July 27, 2022. CT DOSE: 703.85 mGy.cm TECHNIQUE: Helical axial images of the head were obtained without IV contrast. Automated exposure control was utilized for the study. A dose lowering technique was utilized adhering to the principles of ALARA. FINDINGS: No acute intracranial hemorrhage, midline shift or mass effect is present. White matter hypodense foci suggest small vessel disease. Several foci of encephalomalacia within the left cerebral hemisphere suggests old infarcts, as shown on previous MRI. The ventricular system is unremarkable. The basal cisterns are patent. No extra-axial collections are present. There are no findings to suggest acute dural sinus thrombosis or acute territorial infarct. No significant calvarial abnormalities are present. Visualized portions of the sinuses and mastoid air cells are clear. IMPRESSION: 1. No acute intracranial findings. 2. No calvarial fractures. ACT 112: Negative or not required by law. Electronically signed by: Sam Winter M.D. 04/28/2024 11:15 AM Pelvis X-Ray 04/28/24 10:08 XR pelvis 1-2V routine CLINICAL HISTORY: Fall. COMPARISON: Treatment planning CT March 03, 2007. FINDINGS: Sacroiliac joints and symphysis pubis are intact. There are no acute fractures within the pelvis or hips. There is moderate bilateral hip joint space narrowing with osteophytosis. Incidental note is made of brachytherapy seeds within the prostate. IMPRESSION: No fractures within the pelvis or hips. ACT 112: Negative or not required by law. Electronically signed by: Sam Winter M.D. 04/28/2024 11:17 AM Tibia/Fibula X-Ray 04/28/24 10:08 XR tibia fibula LT 2V HISTORY: 88 years-old Male l tib acute pain of the left lower leg and ankle COMPARISON: Ankle radiographs of same day TECHNIQUE: 2 views of the left tibia and fibula FINDINGS: Mild diffuse soft tissue swelling. Osteoarthritis of the knee and ankle. Arterial calcifications. No acute fracture, dislocation or osseous erosion is identified. IMPRESSION: Soft tissue swelling without acute fracture identified. ACT 112: Negative or not required by law. The above report was generated using voice recognition software. It may contain grammatical, syntax or spelling errors. Electronically signed by: Joselito Carlson M.D. 04/28/2024 11:22 AM ECG Additional Comments: ECG revealed atrial fibrillation with PVCs at 81 bpm; QTc 446 Code Status & VTE Plan Code Status Full code VTE Prophylaxis Plan VTE Prophylaxis will be ordered: Yes Supervising Physician Co-Signing Physician Notes Mario is an 88-year-old male with a past medical history of persistent atrial fibrillation, hyperlipidemia, hypertension, CAD with history of LAD PCI presented to the ER for evaluation of bilateral hip pain with worsening left taveras pain after a fall 6 weeks ago. PCP note reviewed. Per outpatient referral note patient had been slurring words and forgetful and more altered compared to his baseline for approximately 6 days. Patient initially was unwilling to be seen by an TAY, and was recommended for ER evaluation for potential stroke due to sudden onset of unsteadiness, spee ch change, joint pain. Change in the last 6 weeks, and seems to have worsened again and had a steady decrease in balance 6 days ago and no change since then. At bedside he feels his speech is normal. No aphasia. no headache. Endorses poor balance and easy fatigue, denies focal/one sided weakness. Has a priox hx of CVA. MRI for CVA evaluation is pending, aspirin added. He is outside of the window for any type of thrombolytic therapy related CVA has been present for almost 30. Differential also includes ambulatory dysfunction progressive decline, PT/OT following. Agree with above. Initial workup reviewed as noted below Patient is anticoagulated on Eliquis for history of A-fib X-ray of the left tib/fib: Soft tissue swelling without fracture Pelvis x-ray: No fracture in the pelvis or hips CThead: No acute intracranial findings, no calvarial fractures. Foci of encephalomalacia suggestive of old infarcts, consistent with left MCA territory infarct seen on 2021 MRI Chest x-ray: No acute finding Left ankle x-ray: No acute fracture or dislocation CBC with mild stable anemia uptrending from prior otherwise unremarkable. BMP with potassium 3.3, repleted. Creatinine is near baseline. Patient has a history of CAD/PCI. Troponin 32.5 on admission EKG independently reviewed. A-fib with PVCs. No territorial ST/T wave changes Echo 2021 with EF 50-55%, mild inferior hypokinesis, mild apical hypokinesis, mild septal hypokinesis PG Care Time/CCT Total # of Minutes Spent Total Time Spent with Patient: Total time spent is greater than 50% in coordination of care (as documented) at patient's floor/unit and/or counseling patient: Coding [place] [address] INT INP/OBS CARE 2/55MIN Patient Type Established Medical Decision Making Moderate Complexity Diagnoses Ambulatory dysfunction R26.2 History of CVA (cerebrovascular accident) Z86.73 Persistent atrial fibrillation I48.19 DM type 2 (diabetes mellitus, type 2) E11.9 Hypokalemia E87.6 Frequent headaches R51.9 Hyperlipidemia E78.5 Hypertension I10 Elevated troponin R79.89
[2024-04-28] MEDS ORDERED: DEXTROSE 50% 50 ML SYRINGE IV PRN (16:06)
[2024-04-28] MEDS ORDERED: GLUCOSE 10 TAB/TUBE PO PRN (16:06)
[2024-04-28] MEDS ORDERED: GLUCAGON FOR INJ 1 MG VIAL SQ PRN (16:06)
[2024-04-28] MEDS ORDERED: CARBOHYDRATES FOR HYPOGLYCEMIA PO PRN (16:06)
[2024-04-28] MEDS ORDERED: GLUCOSE 40% GEL 15 GM TUBE PO PRN (16:06)
[2024-04-28] MEDS ORDERED: MELATONIN 3 MG TAB PO PRN (16:06)
[2024-04-28] MEDS ORDERED: ONDANSETRON INJ 2 MG/ML 2 ML VIAL IV PRN (16:06)
[2024-04-28] MEDS: POTASSIUM CHLORIDE CRTAB 20 MEQ TABCR PO ONE (17:28)
[2024-04-28] MEDS: INSULIN ASPART PER UNIT CHARGE SC SCH (17:28)
--- NOTE | 2024-04-28 17:59 | Magnetic Resonance Report ---
Brain MRI WITHOUT CONTRAST HISTORY: Balance issues; r/o cerebellar stroke TECHNIQUE: Multiplanar multisequence MRI of the brain was performed without the use of contrast. COMPARISON STUDY: Head CT 04/28/2024. Brain MRI 07/27/2022. FINDINGS: There is no mass, hematoma, midline shift, or acute infarct. The paranasal sinuses are pj r. The mastoid air cells are clear. The ventricles and sulci demonstrate moderate age-related involut ional changes. Scattered foci of T2 hyperintensity seen within the periventricular and subcortical wh ite matter are nonspecific but suggestive of moderate microvascular ischemic changes. The major vascu lar flow voids at the skull base are well-maintained. Prior bilateral lens replacement. Old lacunar i nfarct within the left basal ganglia. IMPRESSION: 1. No acute infarct or intracranial hemorrhage. 2. Patchy periventricular white matter T2 hyperintensity is nonspecific but favors moderate microvasc ular ischemic changes. This is slightly progressed. 3. Moderate atrophic changes again noted. ACT 112: Negative or not required by law. Electronically signed by: Joselito Weston M.D. 04/28/2024 5:57 PM
[2024-04-28] MEDS: METOPROLOL TARTRATE 50 MG TAB PO SCH (20:25)
[2024-04-28] MEDS: APIXABAN 5 MG TABLET PO SCH (20:25)
[2024-04-28] MEDS: LABETALOL HCL IV 5 MG/ML 20ML IV ONE (22:07)
[2024-04-28 22:45] VITALS: RESP 18
[2024-04-29] MEDS: ACETAMINOPHEN 325 MG TAB PO PRN (05:22)
[2024-04-29] MEDS: LOSARTAN POTASSIUM 50 MG TAB PO SCH (07:14)
[2024-04-29] MEDS: VIBEGRON 75 MG TAB PO SCH (07:14)
[2024-04-29] MEDS: ATORVASTATIN 20 MG TAB PO SCH (07:14)
[2024-04-29 07:48] LABS: Basophils # (auto) 0.04 K/uL (0.00-0.20); Basophils % (auto) 0.6 %; Eosinophils # (auto) 0.11 K/uL (0.00-0.50); Eosinophils % (auto) 1.7 %; Hematocrit (blood only) 40.8 % (42.0-52.0); Hemoglobin 13.6 g/dl (14.0-18.0); Immature Granulocytes # (auto) 0.02 K/uL (0.01-0.20); Immature Granulocytes % (auto) 0.3 %; Lymphocytes % (auto) 15.4 %; Mean Corpuscular Hemoglobin 29.8 pg (25.0-34.0); Mean Corpuscular Hgb Conc 33.3 g/dL (32.0-36.0); Mean Corpuscular Volume 89.5 fL (80.0-100.0); Mean Platelet Volume 10.9 fL (9.4-12.4); Monocytes # (auto) 1.05 K/uL (0.11-0.59); Monocytes % (auto) 16.2 %; Neutrophils # (auto) 4.28 K/uL (1.40-6.50); Neutrophils % (auto) 65.8 %; Platelet Count 211 K/uL (130-400); RDW Coefficient of Variation 13.5 % (11.5-14.5); RDW Standard Deviation 44.3 fL (36.4-46.3); Red Blood Count 4.56 M/uL (4.70-6.10)
[2024-04-29 08:04] LABS: BUN Creatinine Ratio 17.7 (10-20); Calcium 9.5 mg/dl (8.6-10.3); Creatinine Clr Calc Pharmacy 40.3 ml/min; Est GFR (African American) 51.9 ml/min; Est GFR (Non-African American) 44.8 ml/min; Magnesium 1.7 mg/dl (1.7-2.4); Potassium 3.4 mmol/L (3.5-5.1)
[2024-04-29 09:05] LABS: Estimated Average Glucose 140 mg/dl; Hemoglobin A1C 6.5 % (4.5-5.6)
[2024-04-29] MEDS ORDERED: hydrALAZINE HCL 20 MG/ML VIAL IV PRN (09:23)
[2024-04-29] MEDS: POTASSIUM CHLORIDE CRTAB 20 MEQ TABCR PO STA (09:26)
[2024-04-29 11:27] VITALS: TEMP 97.5
--- NOTE | 2024-04-29 11:31 | Hospitalist Progress Note ---
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 Reports he was taken off this by cardiology, but review of most recent cardiology note recommends continuing aspirin. - Head CT and Brain MRI on admission negative for acute infarct or intracranial hemorrhage; it does note moderate moderate microvascular ischemic changes. (3) Persistent atrial fibrillation: Plan: Rate controlled Continue Eliquis, metoprolol (4) DM type 2 (diabetes mellitus, type 2): Plan: Patient is not currently on home DM medications A1c 6.4% on 04/29/24 SSI with target BSG range 110-140mg/dL, CF 50, carb ratio 15 T2DM diet BSG ACHS Adjust regimen as needed (5) Hypokalemia: Plan: Mild; K 3.3 on arrival Potassium repleted Plan Updated friend at bedside Ordered PRN hydralazine with parameters Repleted K Chronic Stable Conditions: - - - CODE STATUS: Full code VTE PPx: On [facility] Admission and Anticipated Discharge Date Admission Date: April 28, 2024 Subjective Patient seen and evaluated at bedside with friend. He reports that he is feeling well overall. We discussed the results of his imaging on admission. He denies any lightheadedness, dizziness, or headache. He notes that he is agreeable to home health PT/OT if that is what is recommended. He has no complaints or concerns at this time. Physical Exam Physical Exam: General: No acute distress, nondiaphoretic, well-developed, well-nourished. Skin: The skin was without rashes, erythema, edema. Purple bruise noted on the anterior aspect of the left taveras. Cardiac: Regular rate and rhythm without murmurs gallops or rubs. Pulm: Clear to auscultation bilaterally without wheezes, rales or rhonchi. No respiratory distress. 96% on room air. Abdominal: Soft, nontender, nondistended. Bowel sounds present. Neuro: A&O x3. No focal neurological deficits. MSK: 5/5 strength in the lower extremities bilaterally with plantarflexion/dorsiflexion, and bending knees bilaterally. Results & Data Results & Data Vital Signs (Past 12 Hours) Vital Signs Temp Pulse Pulse Resp BP BP Pulse Ox 04/29/24 10:34 154/102 H 04/29/24 08:03 36.5 C 73 18 206/101 H 97 04/29/24 06:52 72 04/29/24 02:44 36.5 C 85 18 184/104 H 94 O2 Del Method 04/29/24 10:34 04/29/24 08:03 Room Air 04/29/24 06:52 04/29/24 02:44 Room Air Laboratory Results Reviewed CBC Reviewed chemistries Diagnostic Findings Ankle X-Ray 04/28/24 10:08 XR ankle LT min 3V routine CLINICAL HISTORY: Left ankle pain. COMPARISON STUDY: None. FINDINGS: No fracture or dislocation within the left ankle. Diffuse soft tissue swelling. No radiopaque foreign bodies. 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 There is a small plantar heel spur. IMPRESSION: No fracture or dislocation within the left ankle. ACT 112: Negative or not required by law. Electronically signed by: Joselito Weston M.D. 04/28/2024 11:27 AM Chest X-Ray 04/28/24 10:08 XR chest 1V portable CLINICAL HISTORY: Chest pain, nonspecific. COMPARISON STUDY: Chest radiograph July 27, 2022. FINDINGS: Lung volumes are normal. Lungs are clear. There is no pneumothorax or pleural effusion. Moderate cardiomegaly is unchanged. Mediastinal contours are normal. There is no evidence for pulmonary edema. Old left-sided rib fractures are again noted. There is also an old distal left clavicular fracture. IMPRESSION: No acute cardiopulmonary findings. No change in appearance of the chest. ACT 112: Negative or not required by law. Electronically signed by: Sam Winter M.D. 04/28/2024 11:[address] 04/28/24 10:08 CT OF THE HEAD WITHOUT CONTRAST CLINICAL HISTORY: fall COMPARISON STUDY: Head CT, CTA of the head and MRI of the brain July 27, 2022. CT DOSE: 703.85 mGy.cm TECHNIQUE: Helical axial images of the head were obtained without IV contrast. Automated exposure control was utilized for the study. A dose lowering technique was utilized adhering to the principles of ALARA. FINDINGS: No acute intracranial hemorrhage, midline shift or mass effect is present. White matter hypodense foci suggest small vessel disease. Several foci of encephalomalacia within the left cerebral hemisphere suggests old infarcts, as shown on previous MRI. The ventricular system is unremarkable. The basal cisterns are patent. No extra-axial collections are present. There are no findings to suggest acute dural sinus thrombosis or acute territorial infarct. No significant calvarial abnormalities are present. Visualized portions of the sinuses and mastoid air cells are clear. IMPRESSION: 1. No acute intracranial findings. 2. No calvarial fractures. ACT 112: Negative or not required by law. Electronically signed by: Sam Winter M.D. 04/28/2024 11:15 AM Pelvis X-Ray 04/28/24 10:08 XR pelvis 1-2V routine CLINICAL HISTORY: Fall. COMPARISON: Treatment planning CT March 03, 2007. FINDINGS: Sacroiliac joints and symphysis pubis are intact. There are no acute fractures within the pelvis or hips. There is moderate bilateral hip joint space narrowing with osteophytosis. Incidental note is made of brachytherapy seeds within the prostate. IMPRESSION: No fractures within the pelvis or hips. ACT 112: Negative or not required by law. Electronically signed by: Sam Winter M.D. 04/28/2024 11:17 AM Tibia/Fibula X-Ray 04/28/24 10:08 XR tibia fibula LT 2V HISTORY: 88 years-old Male l tib acute pain of the left lower leg and ankle COMPARISON: Ankle radiographs of same day TECHNIQUE: 2 views of the left tibia and fibula FINDINGS: Mild diffuse soft tissue swelling. Osteoarthritis of the knee and ankle. A rterial calcifications. No acute fracture, dislocation or osseous erosion is identified. IMPRESSION: Soft tissue swelling without acute fracture identified. ACT 112: Negative or not required by law. The above report was generated using voice recognition software. It may contain grammatical, syntax or spelling errors. Electronically signed by: Joselito Carlson M.D. 04/28/2024 11:22 AM Brain MRI 04/28/24 13:43 Brain MRI WITHOUT CONTRAST HISTORY: Balance issues; r/o cerebellar stroke TECHNIQUE: Multiplanar multisequence MRI of the brain was performed without the use of contrast. COMPARISON STUDY: Head CT 04/28/2024. Brain MRI 07/27/2022. FINDINGS: There is no mass, hematoma, midline shift, or acute infarct. The paranasal sinuses are clear. The mastoid air cells are clear. The ventricles and sulci demonstrate moderate age-related involutional changes. Scattered foci of T2 hyperintensity seen within the periventricular and subcortical white matter are nonspecific but suggestive of moderate microvascular ischemic changes. The major vascular flow voids at the skull base are well-maintained. Prior bilateral lens replacement. Old lacunar infarct within the left basal ganglia. IMPRESSION: 1. No acute infarct or intracranial hemorrhage. 2. Patchy periventricular white matter T2 hyperintensity is nonspecific but favors moderate microvascular ischemic changes. This is slightly progressed. 3. Moderate atrophic changes again noted. ACT 112: Negative or not required by law. Electronically signed by: Joselito Weston M.D. 04/28/2024 5:57 PM PG Care Time/CCT Total # of Minutes Spent Total Time Spent with Patient: Total time spent is greater than 50% in coordination of care (as documented) at patient's floor/unit and/or counseling patient: Coding Level of Care Code 06827 SUB INP/OBS CARE 3/50MIN Diagnoses Ambulatory dysfunction R26.2 History of CVA (cerebrovascular accident) Z86.73 Persistent atrial fibrillation I48.19 DM type 2 (diabetes mellitus, type 2) E11.9 Hypokalemia E87.6
[2024-04-29 15:18] VITALS: BP 174/87; O2SAT 94
--- NOTE | 2024-04-29 15:18 | Electrocardiogram Report ---
Test Reason : Blood Pressure : */* mmHG Vent. Rate : 81 BPM Atrial Rate : * BPM P-R Int : * ms QRS Dur : 100 ms QT Int : 384 ms P-R-T Axes : * -7 258 degrees QTcB Int : 446 ms Atrial fibrillation with premature ventricular or aberrantly conducted complexes Minimal voltage criteria for LVH, may be normal variant ( R in aVL ) Inferior infarct (cited on or before 27-Jul-2022) Abnormal ECG When compared with ECG of 27-Jul-2022 11:22, Borderline criteria for Anterior infarct are no longer Present Confirmed by Don Rosenberg ([id number]) on 04/29/2024 3:18:00 PM Referred By: REFERRED SELF Confirmed By: Don Rosenberg
--- NOTE | 2024-04-29 17:17 | Discharge Summary ---
Discharge Summary Date of Service April 29, 2024 Principal Dx & Hospital Course #1 = Principal Diagnosis (1) Ambulatory dysfunction: Patient fell 4-5 weeks ago and injured his left leg; he reports he is at his leg about and has felt off balance since then - Hx of vertigo, but patient reports it does not feel like "dizziness" or "lightheadedness" - Imaging without acute fractures (pelvis, tib/fib, ankle) - Acetaminophen as needed for pain - PT/OT consulted --> home health. Home health set up and scheduled to see the patient 04/30/2024. 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 Reports he was taken off this by cardiology, but review of most recent cardiology note recommends continuing aspirin. - Head CT and Brain MRI on admission negative for acute infarct or intracranial hemorrhage; it does note moderate moderate microvascular ischemic changes. (3) Persistent atrial fibrillation: Rate controlled Continue Eliquis, metoprolol (4) DM type 2 (diabetes mellitus, type 2): Patient is not currently on home DM medications A1c 6.4% on 04/29/24 (5) Hypokalemia: Mild; K 3.3 on arrival Potassium repleted Plan CODE STATUS: Full code VTE PPx: On Eliquis Notes For Next Care Provider Patient admitted to the hospital for ambulatory dysfunction. He did have a fall approximately 5 weeks ago and injured his left legall imaging without acute fractures (pelvis, tibia/fib, ankle). Head CT and brain MRI negative for acute infarct or intracranial hemorrhage; it does note moderate microvascular ischemic changes. Patient was discharged home with home health services. Admission HPI Per Admitting Provider Mario is a 88-year-old male with PMH of persistent atrial fibrillation (on apixaban), T2DM, HTN, prostate cancer, HLD, drug-eluting stents, and CVA. He presented on 04/28 for ambulatory dysfunction and bruising on his left leg after he fell 4 to 5 weeks ago. He reports that he tripped outdoors and slammed his left leg into a rock. He believes he might of hit his head on the dirt. No LOC, but he did feel off balance prior to fall. He denies dizziness like the room is spinning, or lightheadedness like he is going to pass out, but has difficulty describing why he feels like his head is "off". When asked if it feels like the patient is "drunk" when he walks, he says it sometimes feels like that. He endorses that his ambulatory dysfunction is a combination of both his legs giving out, and him feeling off balance for an unknown reason. At present, he does endorse intermittent left lower leg pain, but reports he is able to bear weight on it. Bending the knee sometimes triggers the pain. He is not taking any pain medication for this. No radiation up the leg to the back. Patient took his regular morning medicine today. He denies any recent falls. He does not use ambulatory assist devices such as a cane or walker. His most difficulty walking is when he goes down steps, and he does have steps in his house. Both the right and left legs can give out at any time. He does have history of vertigo as well but does not take medication for this. History of a stroke, however patient is not currently on aspirin, and reports he has been off it for several months. Patient's friend (Abbey) is present in the room and provides additional history; she reports that he has had occasional difficulty with speaking over the past year ever since his stroke, but it does get worse at times; she denies any facial droop. He denies alcohol use, tobacco use, or smoking. Patient is hypertensive at 190/116 at time of admission; vitals otherwise stable. ED course: ROS: Patient endorses feeling off balance, ambulatory dysfunction, left leg pain, diarrhea, and intermittent numbness/tingling in leg joints (L>R). Patient denies fever, chills, night-sweats, facial droop, CP, SOB, pleuritic CP, abdominal pain, N/V, or change in urinary/bowel habits. Admission Exam Per Admitting Provider General: no acute distress; pleasant affect; non-toxic appearing; well-nourished ; cooperative; SpO2 95% on RA HEENT: normocephalic, atraumatic; no scleral icterus; PERRLA; vision and hearing grossly intact Neck: supple; no lymphadenopathy; trachea midline Skin: warm, dry without signs of tenting; no cyanosis; no rashes, bruising, lesions, or erythema noted CV: chest wall NTP; RRR; S1/S2 normal; no murmurs/rubs/gallops; pulses intact and symmetric at radial, DP, and PT Lungs: no acute respiratory distress; symmetrical chest wall expansion; clear breath sounds across all lung jones w/o adventitious sounds; no wheezing ABD: Soft, NTP; BS present; no rebound/guarding; no distention MSK: no tics or fasciculations; purple bruise noted on the lateral/anterior aspect of the left taveras; 5/5 strength in the lower extremities bilaterally with plantarflexion/dorsiflexion, and bending knees bilaterally Neuro: A&Ox3; normal mood and affect; fluent speech; no facial droop; no focal deficits; sensation grossly intact in the LEs b/l Discharge Exam General: No acute distress, nondiaphoretic, well-developed, well-nourished. Skin: The skin was without rashes, erythema, edema. Purple bruise noted on the anterior aspect of the left taveras. Cardiac: Regular rate and rhythm without murmurs gallops or rubs. Pulm: Clear to auscultation bilaterally without wheezes, rales or rhonchi. No respiratory distress. 96% on room air. Abdominal: Soft, nontender, nondistended. Bowel sounds present. Neuro: A&O x3. No focal neurological deficits. MSK: 5/5 strength in the lower extremities bilaterally with plantarflexion/dorsiflexion, and bending knees bilaterally. Discharge Plan Discharge Items Patient Disposition: Home - Self-Care Reason For Visit: AMBULATORY DYSFUNCTION Discharge Diagnosis: Ambulatory dysfunction Activity: Resume your previous activity Non-emergency contact: Primary Care Provider Call non-emergency contact if: you have any medication questions and your symptoms worsen Follow-up/Referrals: ProDon MD [Primary Care Provider] - 05/12/24 3:00 pm (APPT. WITH Patricia CURTIS PA-C) Diet: Carb Consistent or DM2 and Heart Healthy Addtl Attending Provider Instructions: Mr. Russ, You are admitted to the hospital with ambulatory dysfunction. You had x-rays of your pelvis, lower leg (tibia/fibula), and ankle which were all negative for acute fractures. You also had a head CT and brain MRI which was negative for a clot or bleeding. You have been set up with home health physical therapy services - they will see you tomorrow, 04/30/2024. Continue all of your home medications as prescribed. There have been no medication changes from this hospitalization. Please follow-up with your PCP if you continue to experience symptoms of lightheadedness/dizziness. It was a pleasure taking care of you while you were in the hospital, Franca Luna PA-C Pending Studies at Discharge: No Stand-Alone Forms: My [facility] [employer], Smoking Cessation Medications and DC Order Prescriptions: Continued nystatin 100,000 unit/gram cream 1 applic topical BID Qty: 30 2RF telmisartan 80 mg tablet 80 mg PO QAM Qty: 90 3RF Gemtesa 75 mg tablet 75 mg PO DAILY Qty: 90 4RF sildenafil (pulm.hypertension) 20 mg tablet 20 mg PO ONCE PRN (Reason: sexual activity) Qty: 15 6RF Rx Instructions: take 1-5 tablets as needed do not take more than 5 tablets in a 24 hour period Eliquis 5 mg tablet 5 mg PO BID Qty: 180 3RF atorvastatin 20 mg tablet 20 mg PO DAILY Qty: 90 3RF metoprolol tartrate 50 mg tablet 50 mg PO BID Qty: 180 3RF nystatin 100,000 unit/gram powder 1 applic topical BID Qty: 60 0RF vitamin [id number] acid 0.5-1 mg Tablet 1 tab PO DAILY cholecalciferol (vitamin D3) [Vitamin D3] 125 mcg (5,000 unit) Tablet 125 mcg PO QPM trospium 20 mg tablet 20 mg PO UD Rx Instructions: 20 mg po bid on hold Discharge Orders: Discharge Order (Routine); Ordered 04/29/24 Ordered By: Franca Verduzco/Other Patient Handouts: Type 2 Diabetes Admission Data Admit Date/Time: 04/28/24 13:29 Attending Provider: Jeet Duncan Admit Provider: Gordy Alvarado Primary Care Provider: Don Yeager Other Providers: Gordy Alvarado; [facility] Stay Data Consultations 04/28/24 12:38 ED Decision to Admit Stat Diagnostic Imagining Performed Ankle X-Ray 04/28/24 10:08 XR ankle LT min 3V routine CLINICAL HISTORY: Left ankle pain. COMPARISON STUDY: None. FINDINGS: No fracture or dislocation within the left ankle. Diffuse soft tissue swelling. No radiopaque foreign bodies. 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 There is a small plantar heel spur. IMPRESSION: No fracture or dislocation within the left ankle. ACT 112: Negative or not required by law. Electronically signed by: Joselito Weston M.D. 04/28/2024 11:27 AM Chest X-Ray 04/28/24 10:08 XR chest 1V portable CLINICAL HISTORY: Chest pain, nonspecific. COMPARISON STUDY: Chest radiograph July 27, 2022. FINDINGS: Lung volumes are normal. Lungs are clear. There is no pneumothorax or pleural effusion. Moderate cardiomegaly is unchanged. Mediastinal contours are normal. There is no evidence for pulmonary edema. Old left-sided rib fractures are again noted. There is also an old distal left clavicular fracture. IMPRESSION: No acute cardiopulmonary findings. No change in appearance of the chest. ACT 112: Negative or not required by law. Electronically signed by: Sam Winter M.D. 04/28/2024 11:[address] 04/28/24 10:08 CT OF THE HEAD WITHOUT CONTRAST CLINICAL HISTORY: fall COMPARISON STUDY: Head CT, CTA of the head and MRI of the brain July 27, 2022. CT DOSE: 703.85 mGy.cm TECHNIQUE: Helical axial images of the head were obtained without IV contrast. Automated exposure control was utilized for the study. A dose lowering technique was utilized adhering to the principles of ALARA. FINDINGS: No acute intracranial hemorrhage, midline shift or mass effect is present. White matter hypodense foci suggest small vessel disease. Several foci of encephalomalacia within the left cerebral hemisphere suggests old infarcts, as shown on previous MRI. The ventricular system is unremarkable. The basal cisterns are patent. No extra-axial collections are present. There are no findings to suggest acute dural sinus thrombosis or acute territorial infarct. No significant calvarial abnormalities are present. Visualized portions of the sinuses and mastoid air cells are clear. IMPRESSION: 1. No acute intracranial findings. 2. No calvarial fractures. ACT 112: Negative or not required by law. Electronically signed by: Sam Winter M.D. 04/28/2024 11:15 AM Pelvis X-Ray 04/28/24 10:08 XR pelvis 1-2V routine CLINICAL HISTORY: Fall. COMPARISON: Treatment planning CT March 03, 2007. FINDINGS: Sacroiliac joints and symphysis pubis are intact. There are no acute fractures within the pelvis or hips. There is moderate bilateral hip joint space narrowing with osteophytosis. Incidental note is made of brachytherapy seeds within the prostate. IMPRESSION: No fractures within the pelvis or hips. ACT 112: Negative or not required by law. Electronically signed by: Sam Winter M.D. 04/28/2024 11:17 AM Tibia/Fibula X-Ray 04/28/24 10:08 XR tibia fibula LT 2V HISTORY: 88 years-old Male l tib acute pain of the left lower leg and ankle COMPARISON: Ankle radiographs of same day TECHNIQUE: 2 views of the left tibia and fibula FINDINGS: Mild diffuse soft tissue swelling. Osteoarthritis of the knee and ankle. Arterial calcifications. No acute fracture, dislocation or osseous erosion is identified. IMPRESSION: Soft tissue swelling without acute fracture identified. ACT 112: Negative or not required by law. The above report was generated using voice recognition software. It may contain grammatical, syntax or spelling errors. Electronically signed by: Joselito Carlson M.D. 04/28/2024 11:22 AM Brain MRI 04/28/24 13:43 Brain MRI WITHOUT CONTRAST HISTORY: Balance issues; r/o cerebellar stroke TECHNIQUE: Multiplanar multisequence MRI of the brain was performed without the use of contrast. COMPARISON STUDY: Head CT 04/28/2024. Brain MRI 07/27/2022. FINDINGS: There is no mass, hematoma, midline shift, or acute infarct. The paranasal sinuses are clear. The mastoid air cells are clear. The ventricles and sulci demonstrate moderate age-related involutional changes. Scattered foci of T2 hyperintensity seen within the periventricular and subcortical white matter are nonspecific but suggestive of moderate microvascular ischemic changes. The major vascular flow voids at the skull base are well-maintained. Prior bilateral lens replacement. Old lacunar infarct within the left basal ganglia. IMPRESSION: 1. No acute infarct or intracranial hemorrhage. 2. Patchy periventricular white matter T2 hyperintensity is nonspecific but favors moderate microvascular ischemic changes. This is slightly progressed. 3. Moderate atrophic changes again noted. ACT 112: Negative or not required by law. Electronically signed by: Joselito Weston M.D. 04/28/2024 5:57 PM Pending Results Patient Have Any Pending Studies at Discharge: No Discharge Instructions Given to Patient (Per Discharging Provider) Mr. Firmin, You are admitted to the hospital with ambulatory dysfunction. You had x-rays of your pelvis, lower leg (tibia/fibula), and ankle which were all negative for acute fractures. You also had a head CT and brain MRI which was negative for a clot or bleeding. You have been set up with home health physical therapy services - they will see you tomorrow, 04/30/2024. Continue all of your home medications as prescribed. There have been no medication changes from this hospitalization. Please follow-up with your PCP if you continue to experience symptoms of lightheadedness/dizziness. It was a pleasure taking care of you while you were in the hospital, Franca Luna PA-C Total Time Total Time Spent Total Time Spent (In Minutes): Greater than 30 minutes spent completing this discharge process including direct patient care, medication reconciliation, documentation, review of labs and images, and coordination of care. Coding Level of Care Code 01631 INP/OBS DISCH >30 MIN Diagnoses Ambulatory dysfunction R26.2 History of CVA (cerebrovascular accident) Z86.73 Persistent atrial fibrillation I48.19 DM type 2 (diabetes mellitus, type 2) E11.9 Hypokalemia E87.6
[2024-04-29 17:18] VITALS: PULSE 64
== END 2024-04-29 18:09 | disposition home or self-care (01) | DRG 556 ==
LOC: ED 09:46 → 2W 13:29 → INTOOBSV 13:29 → SUATTDRO 13:29 → 2W 15:30

== ENCOUNTER 2024-06-05 21:40 | Inpatient (IN) ==
--- NOTE | 2024-06-05 21:49 | Emergency Department Note ---
Impression & Plan AMS (altered mental status), Fall, Atrial fibrillation with rapid ventricular response, Acute non-ST elevation myocardial infarction (NSTEMI), Acute pericardial effusion ED Provider Note NAME: KRISTA BLACKWOOD AGE: 88 SEX: M : 1935 ARRIVES VIA: Ambulance INFORMANT: Patient, EMS ED PROVIDER(S): Don Nicole DO CHIEF COMPLAINT: Altered mental status HPI: The patient is an 88-year-old male who presented to the emergency department for an evaluation of altered mental status. The patient has a history of atrial fibrillation. He does take apixaban. The patient also has a history of diabetes. He was on the floor in his bathroom but is unclear exactly what happened. The patient himself does not remember falling. The patient denies having any chest pain or difficulty breathing but he is also very confused. History was also obtained from the prehospital personnel as well as the patient's family. He was last seen a few days ago. The patient does have some bruising according the prehospital personnel. ROS: See above HPI for pertinent positives & negatives. A total of 10 systems reviewed and were otherwise negative. PAST MEDICAL HISTORY: See Below PAST SURGICAL HISTORY: See Below FAMILY HISTORY: See Below SOCIAL HISTORY: See Below HOME MEDICATIONS: See Below ALLERGIES: See Below VITALS: See Below PHYSICAL EXAMINATION: GENERAL: The patient is awake to verbal commands. He is answering questions and appropriately. EYES: The conjunctivae are clear. The pupils are round and reactive. EARS, NOSE, MOUTH AND THROAT: The nose is without any evidence of any deformity. Mucous membranes are dry. NECK: Cervical collar was applied prior to arrival. This remains in place. RESPIRATORY: Shallow respirations were noted. CARDIOVASCULAR: Tachycardic and irregular heart sounds were noted to auscultation. There is no definite murmur. GASTROINTESTINAL: The abdomen was distended. There is ecchymosis in the right upper quadrant. There is tenderness in both upper quadrants. BACK: No midline tenderness or or step-off noted range of motion in flexion extension as well as rotation no signs of muscle spasm noted MUSCULOSKELETAL/EXTREMITIES: There is no evidence of deformity of either upper or lower extremity. The patient does have pain with range of motion testing but this pain appears to be global rather than isolated to any specific extremity. SKIN: Skin was cool and dry. Pedal edema was noted bilaterally. There was ecchymosis over the right upper quadrant. There is a large area of skin breakdown in the right groin. There was also ecchymosis over the right mandible. NEUROLOGIC: Patient is awake and and oriented to person only. Strength was symmetric but diminished. MEDICAL DECISION MAKING: The patient is an 88-year-old male who presented to the emergency department after being found on the floor. His significant other who does not live with him tried to call him but he would not answer his phone. Ultimately the significant other called the neighbor and asked them to go check on the patient and he was found in the bathroom on the floor on his right side. The patient was confused. Patient has a history of atrial fibrillation. He was found to be in atrial fibrillation with RVR. His blood pressure was very high. I did receive a prehospital notification about the patient. He was treated with IV fluids as well as IV Cardizem in the emergency department. He was reevaluated multiple times. I discussed patient's laboratory and radiographic studies with him and his significant other. Given his findings I discussed his condition with the on-call [facility]. They have agreed to evaluate the patient in the emergency department. Triage Nursing notes reviewed. Prior medical records reviewed Vital Signs: reviewed and remarkable for elevated blood pressure and tachycardia. Differential diagnosis: Fracture, dislocation, contusion, intra-abdominal, pneumothorax, intrathoracic, intracranial, neurologic, compartment syndrome, rhabdomyolysis, as well as other pathologies. ER treatment provided: See below Diagnostics interpreted by me: ECG: EKG was obtained in the emergency department. My interpretation is atrial fibrillation with RVR at 147 bpm. PVCs were noted. Nonspecific ST depressions were noted diffusely. This was compared to a tracing from April 28, 2024. There is an increase in the rate, otherwise no specific changes were noted. Cardiac Monitoring: An order was placed for continuous cardiac monitoring. The monitor shows a rate of 160 bpm with atrial fibrillation and RVR. Laboratory studies: As stated above and show below. Imaging studies: See below. Radiographic imaging was reviewed by myself Consultation(s): I discussed this case with Dr. Iglesias [facility] COURSE: Procedures: none Critical Care: I have personally spent greater than 55 minutes of critical care time in the direct management of this patient. This includes bedside care, interpretation of diagnostic studies, and testing, discussion with consultants, patient, and family members, and other required patient management activities. This 55 minutes is in excess of all separately billable procedures. 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 Prostate cancer DX 2005 - HX RADIATION AND SEED IMPLANT Idiopathic urticaria Surgical History History of left cataract extraction History of colonoscopy History of coronary artery stent placement EARLY History of tonsillectomy History of prostate surgery S/P hernia repair HX MULTIPLE Family History Father Myocardial infarction Diabetes Heart disease Hypertension Mother Pancreatic cancer Sister Poliomyelitis Denies family history of Colon cancer Ovarian cancer Prostate cancer Breast cancer Social History Smoking Status: Unknown if ever smoked Age Started Using Tobacco: 17; Age Quit Using Tobacco: 40; packs per day: 2; Cigarettes Per Day: 3-4 packs/day quit 1975; Second Hand Exposure: No; Do You Dip or Chew Tobacco: No; Hx Alcohol Use: No Hx Substance Use: No Preferred Language: Bengali Communication Ability: Effective Visual Impairment: No Limitations Hearing Ability: Normal Paper Sorter And Counter Required: No Beliefs That Will Affect Care: None marital status: Single Current Living Situation: Alone current occupational status: retired Feels Safe at Home: Yes Childhood Exposure to Second-Hand Smoke: Yes Dental Care, Regularly: Yes Physical Activity Frequency: 3-4 Times per Week Seatbelt Use: always Sunscreen Use: No Assistive Devices: Cane and Walker Allergies Allergies Allergy/AdvReac Type Severity Reaction Status Date / Time clopidogrel Allergy Intermediate HIVES Verified 05/12/24 14:51 Iodinated Contrast Media Allergy Intermediate HIVES Verified 05/12/24 14:51 pollen extracts Allergy Mild Unverified 05/12/24 14:51 [id number] Reductase AdvReac Unknown Unknown Verified 05/12/24 14:51 Inhibitor Home Meds Home Medications Medication Instructions Recorded Confirmed cholecalciferol (vitamin D3) 125 125 mcg PO QPM 10/25/21 05/12/24 mcg (5,000 unit) tablet (Vitamin D3) vitamin B12 0.5 mg-folic acid 1 mg 1 tab PO DAILY 07/27/22 05/12/24 tablet trospium 20 mg tablet 20 mg PO UD 04/28/24 05/12/24 Previous Rx's Medication Instructions Recorded metoprolol tartrate 50 mg tablet 50 mg PO BID #180 tabs 07/20/23 sildenafil (pulm.hypertension) 20 20 mg PO ONCE PRN sexual activity 10/14/23 mg tablet #15 tabs telmisartan 80 mg tablet 80 mg PO QAM #90 tabs 12/30/23 vibegron 75 mg tablet (Gemtesa) 75 mg PO DAILY #90 tabs 02/29/24 apixaban 5 mg tablet (Eliquis) 5 mg PO BID #180 tabs 05/12/24 atorvastatin 20 mg tablet 20 mg PO DAILY #90 tabs 05/12/24 nystatin 100,000 unit/gram topical 1 applic topical BID #30 grams 05/12/24 cream nystatin 100,000 unit/gram topical 1 applic topical BID #60 grams 05/12/24 powder Results & Data (ED) Vital Signs Vital Signs - 24 hr 06/05/24 21:23 06/05/24 21:43 06/05/24 21:45 Temperature 36.7 C Temperature Source Oral Pulse Rate 163 H Pulse Rate [Apical] Pulse Rate from SpO2 Sensor Pulse Rhythm Irregular Pulse Rhythm [Apical] Respiratory Rate 23 Respiratory Effort / Characteristics Non-Labored Spontaneous Respiratory Depth Normal Respiratory Pattern Regular Blood Pressure 209/137 H 186/115 H 193/151 H Blood Pressure [Left Arm] Blood Pressure Mean 161 171 156 Blood Pressure Mean [Left Arm] Pulse Oximetry 95 Oxygen Delivery Method Sepsis Recent Fever Within 48 Hours No Sepsis New/Unexplained Change in Mental Status No Sepsis Action Taken by Nursing Physician Notified Oxygen Flow Rate - Titration Pulse Oximetry Post Tiitration 06/05/24 21:47 06/05/24 21:50 06/05/24 21:50 Temperature 36.7 C Temperature Source Pulse Rate 163 H Pulse Rate [Apical] 163 H Pulse Rate from SpO2 Sensor Pulse Rhythm Pulse Rhythm [Apical] Respiratory Rate 24 Respiratory Effort / Characteristics Respiratory Depth Respiratory Pattern Blood Pressure 209/137 H 209/137 H Blood Pressure [Left Arm] 173/128 H Blood Pressure Mean 176 Blood Pressure Mean [Left Arm] 143 Pulse Oximetry 95 Oxygen Delivery Method Nasal Cannula Sepsis Recent Fever Within 48 Hours Sepsis New/Unexplained Change in Mental Status Sepsis Action Taken by Nursing Oxygen Flow Rate - Titration Pulse Oximetry Post Tiitration 06/05/24 21:52 06/05/24 21:54 06/05/24 21:54 Temperature Temperature Source Pulse Rate 144 H 166 H Pulse Rate [Apical] 170 H Pulse Rate from SpO2 Sensor 158 H Pulse Rhythm Pulse Rhythm [Apical] Irregular Respiratory Rate 24 21 Respiratory Effort / Characteristics Respiratory Depth Respiratory Pattern Blood Pressure Blood Pressure [Left Arm] Blood Pressure Mean Blood Pressure Mean [Left Arm] Pulse Oximetry 95 Oxygen Delivery Method Sepsis Recent Fever Within 48 Hours Sepsis New/Unexplained Change in Mental Status Sepsis Action Taken by Nursing Oxygen Flow Rate - Titration Pulse Oximetry Post Tiitration 06/05/24 21:55 06/05/24 22:00 06/05/24 22:15 Temperature Temperature Source Pulse Rate 163 H Pulse Rate [Apical] Pulse Rate from SpO2 Sensor Pulse Rhythm Irregular Pulse Rhythm [Apical] Respiratory Rate Respiratory Effort / Characteristics Respiratory Depth Respiratory Pattern Blood Pressure 173/128 H 183/112 H Blood Pressure [Left Arm] Blood Pressure Mean 151 116 Blood Pressure Mean [Left Arm] Pulse Oximetry 95 Oxygen Delivery Method Room Air Sepsis Recent Fever Within 48 Hours Sepsis New/Unexplained Change in Mental Status Sepsis Action Taken by Nursing Oxygen Flow Rate - Titration Pulse Oximetry Post Tiitration 06/05/24 22:45 06/05/24 22:45 06/05/24 22:48 Temperature Temperature Source Pulse Rate 148 H Pulse Rate [Apical] Pulse Rate from SpO2 Sensor Pulse Rhythm Pulse Rhythm [Apical] Respiratory Rate 40 H Respiratory Effort / Characteristics Respiratory Depth Respiratory Pattern Blood Pressure 200/144 H 200/144 H Blood Pressure [Left Arm] Blood Pressure Mean 169 169 Blood Pressure Mean [Left Arm] Pulse Oximetry Oxygen Delivery Method Sepsis Recent Fever Within 48 Hours Sepsis New/Unexplained Change in Mental Status Sepsis Action Taken by Nursing Oxygen Flow Rate - Titration Pulse Oximetry Post Tiitration 06/05/24 22:50 06/05/24 22:53 06/05/24 22:54 Temperature Temperature Source Pulse Rate 149 H Pulse Rate [Apical] 156 H Pulse Rate from SpO2 Sensor 158 H Pulse Rhythm Pulse Rhythm [Apical] Respiratory Rate 19 20 Respiratory Effort / Characteristics Non-Labored Spontaneous Respiratory Depth Normal Respiratory Pattern Blood Pressure Blood Pressure [Left Arm] 200/144 H Blood Pressure Mean Blood Pressure Mean [Left Arm] 162 Pulse Oximetry 91 90 92 Oxygen Delivery Method Room Air Room Air Sepsis Recent Fever Within 48 Hours Sepsis New/Unexplained Change in Mental Status Sepsis Action Taken by Nursing Oxygen Flow Rate - Titration 1 Pulse Oximetry Post Tiitration 92 06/05/24 23:00 06/05/24 23:00 06/05/24 23:03 Temperature Temperature Source Pulse Rate 157 H Pulse Rate [Apical] Pulse Rate from SpO2 Sensor Pulse Rhythm Pulse Rhythm [Apical] Respiratory Rate 18 Respiratory Effort / Characteristics Respiratory Depth Respiratory Pattern Blood Pressure 188/137 H 188/137 H Blood Pressure [Left Arm] Blood Pressure Mean 157 157 Blood Pressure Mean [Left Arm] Pulse Oximetry Oxygen Delivery Method Sepsis Recent Fever Within 48 Hours Sepsis New/Unexplained Change in Mental Status Sepsis Action Taken by Nursing Oxygen Flow Rate - Titration Pulse Oximetry Post Tiitration Home Medications Current Medication List: was personally reviewed by me Laboratory Data Attestation: I reviewed the patient's lab results. 06/05/24 21:57 06/05/24 21:57 Lab Results 06/05/24 06/05/24 06/05/24 Range/Units 21:57 22:18 23:40 WBC 17.38 H (4.8-10.8) K/ul RBC 5.10 (4.70-6.10) M/uL Hgb 15.0 (14.0-18.0) g/dl POC Hgb 15.6 (14.0-18.0) g/dl Hct 45.0 (42.0-52.0) % POC Hct 46 (42-52) % MCV 88.2 (80.0-100.0) fL MCH 29.4 (25.0-34.0) pg MCHC 33.3 (32.0-36.0) g/dL RDW Std Deviation 44.1 (36.4-46.3) fL RDW Coeff of [place] 13.7 (11.5-14.5) % Plt Count 192 (130-400) K/uL MPV 11.4 (9.4-12.4) fL Immature Gran % (Auto) 0.6 % Neut % (Auto) 82.8 % Lymph % (Auto) 2.2 % [place] % (Auto) 14.2 % Eos % (Auto) 0.1 % Baso % (Auto) 0.1 % Neut # (Auto) 14.40 H (1.40-6.50) K/uL Lymph # (Auto) 0.39 L (1.20-3.40) K/uL [place] # (Auto) 2.46 H (0.11-0.59) K/uL Eos # (Auto) 0.01 (0.00-0.50) K/uL Baso # (Auto) 0.02 (0.00-0.20) K/uL Immature Gran # (Auto) 0.10 (0.01-0.20) K/uL Platelet Estimate Normal (Normal) Polychromasia 1+ Echinocytes 1+ VBG pH 7.37 (7.36-7.41) VBG pCO2 42 (38-50) mmHg VBG pO2 27 mmHg VBG HCO3 24 mmol/L VBG O2 Saturation < 60.0 % VBG Base Excess -1.1 mEq/L POC Sodium 141 (135-144) mmol/L Sodium 142 (136-145) mmol/L POC Potassium 3.7 (3.3-5.0) mmol/L Potassium 3.8 (3.5-5.1) mmol/L POC Chloride 105 (101-112) mmol/L Chloride 105 (98-107) mmol/L Carbon Dioxide 24 (21-32) mmol/L POC Total CO2 23 L (24-31) mmol/L Anion Gap 13 H (3-11) POC Anion Gap 17.0 (16-25) mmol/L POC BUN 24 H (7-18) mg/dl BUN 25 H (6-23) mg/dl Creatinine 1.18 (0.6-1.4) mg/dl POC Creatinine 1.2 (0.6-1.3) mg/dl Est Cr Clr Drug Dosing Not Reportable Est GFR ( Amer) 64.4 ml/min Est GFR (Non-Af Amer) 55.5 ml/min BUN/Creatinine Ratio 21.2 H (10-20) Glucose 153 H (70-99(Fasting)) mg/dl POC Glucose (other) 151 H (70-99) mg/dl Calcium 9.9 (8.6-10.3) mg/dl POC Ioniz Calcium [place] 1.16 (1.12-1.32) mmol/l Magnesium 1.8 (1.7-2.4) mg/dl Total Bilirubin 2.7 H (0.2-1.0) mg/dl AST 55 H (13-39) U/L ALT 34 (7-52) U/L Alkaline Phosphatase 113 H (34-104) U/L Total Creatine Kinase 594 H (30-223) U/L Troponin I High Sens 2317.0 H* (0-20) pg/ml Total Protein 6.4 (6.0-8.3) gm/dl Albumin 3.9 (3.4-5.0) gm/dl Globulin 2.5 (2.5-4.0) gm/dl Albumin/Globulin Ratio 1.6 (0.9-2) TSH 1.029 (0.300-4.500) uIu/ml Urine Color Yellow Urine Appearance Clear (Clear) Urine pH 5.5 (4.5-7.5) Ur Specific [place] 1.030 (1.000-1.030) Urine Protein 2+ H (Negative) Urine Glucose (UA) Trace H (Negative) Urine Ketones 2+ H (Negative) Urine Blood 2+ H (Negative) Urine Nitrite Negative (Negative) Urine Bilirubin Negative (Negative) Urine Urobilinogen Negative (Negative) Ur Leukocyte Esterase Negative (Negative) Urine WBC (Auto) 0-5 (0-5) /hpf Urine RBC (Auto) 6-10 H (0-2) /hpf U Hyaline Cast (Auto) 3-5 H (0-2) /lpf U Epithel Cells (Auto) 0-2 (0-2) /hpf Urine Bacteria (Auto) None Seen (None Seen) Ethyl Alcohol mg/dL < 10.0 (<10.0) mg/dl Blood Type A Positive Antibody Screen NEGATIVE Administered Medications Discontinued Medications Diltiazem HCl (Diltiazem Hcl 5 Mg/Ml 5 Ml Vial) 10 mg IV NOW STA Stop: 06/05/24 23:11 Last Admin: 06/05/24 23:15 Dose: 10 mg Documented By: VITALY Co-signed By: RAMAKRISHNA Diphenhydramine HCl (Diphenhydramine 50 Mg/Ml Vial) 25 mg IV ONE ONE Stop: 06/05/24 21:48 Last Admin: 06/05/24 22:32 Dose: 25 mg Documented By: VITALY Sodium Chloride (Nss) 500 mls @ 999 mls/hr IV .Q31M EVGENY Stop: 06/05/24 22:15 Last Infusion: 06/05/24 23:25 Dose: Infused Documented By: Admin: 06/05/24 22:51 Dose: 999 mls/hr Documented By: VITALY Piperacillin Sod/Tazobactam Sod (Zosyn) 4.5 gm in 100 mls @ 200 mls/hr IV NOW ONE Stop: 06/05/24 23:39 Last Infusion: 06/05/24 23:50 Dose: Infused Documented By: Admin: 06/05/24 23:19 Dose: 200 mls/hr Documented By: VITALY Ioversol (Optiray 320 125ml) 119 ml IV ONCE ONE Stop: 06/05/24 22:29 Last Admin: 06/05/24 22:34 Dose: 119 ml Documented By: JASBIR Methylprednisolone (Methylprednisolone 125 Mg/2 Ml Vial) 40 mg IV NOW ONE Stop: 06/05/24 21:48 Last Admin: 06/05/24 22:32 Dose: 40 mg Documented By: VITALY Imaging Data Attestation: I personally reviewed and interpreted this imaging study as follows: My Impression: CT the brain was obtained in the emergency department. My interpretation is no intracranial hemorrhage or mass effect, final report below. CT of the chest was obtained in the emergency department. My interpretation was bilateral small pleural effusions with pericardial effusion, final report below. CT of the abdomen and pelvis was obtained in the emergency department. My interpretation was no free air or signs of bowel obstruction, final report below. 1 view chest x-ray was obtained in the emergency department. My interpretation is no free air or definite infiltrate, final report below. Radiologist's Impression: Abdomen/Pelvis CT 06/05/24 21:46 Exam(s): CT ABDOMEN + PELVIS With Contrast IV Amt: 119ml EXAM: CT Abdomen and Pelvis With Intravenous Contrast CLINICAL HISTORY: Reason for exam: Trauma. TECHNIQUE: Axial computed tomography images of the abdomen and pelvis with intravenous contrast. Automated exposure control was utilized for the study. A dose lowering technique was utilized adhering to the principles of ALARA. CONTRAST: Patient received 119ml of IV contrast COMPARISON: None. FINDINGS: Liver: No injury. Fatty, with a large, peripheral calcified cyst measuring 4 x 4.3 x 3 cm. Gallbladder and bile ducts: No ductal dilation. Pancreas: No ductal dilation. Spleen: No laceration. Adrenals: Unremarkable. No mass. Kidneys and ureters: Bilateral cortical cysts, largest on the left measuring 1.5 cm. No injury. Stomach and bowel: No obstruction. Diverticulosis without diverticulitis. Intraperitoneal space: No free air or fluid. Bones/joints: No acute pelvic or vertebral fracture. Soft tissues: Mild dependent edema or cellulitis hips and proximal thigh posteriorly, possible contusion, given history. Vasculature: Ectasia and atherosclerosis of the aorta. No abdominal aortic aneurysm. Lymph nodes: No enlarged lymph nodes. Bladder: No injury. Reproductive: Multiple prostate seeds as. IMPRESSION: 1. Mild dependent edema or cellulitis hips and proximal thigh posteriorly, possible contusion, given history. 2. No pelvic/vertebral fracture, parenchymal laceration or hemoperitoneum. 3. Peripheral calcified hepatic cyst, renal cysts and diverticulosis incidentally noted. Electronically signed by: Damaris Miranda M.D. 06/06/24 00:[address] 06/05/24 21:46 Exam(s): CT C SPINE EXAM: CT Cervical Spine Without Intravenous Contrast CLINICAL HISTORY: Reason for exam: Trauma. TECHNIQUE: Axial computed tomography images of the cervical spine without intravenous contrast. CTDI is 26.77 mGy and DLP is 5422.38 mGy-cm. Automated exposure control was utilized for the study. A dose lowering technique was utilized adhering to the principles of ALARA. COMPARISON: No relevant prior studies available. FINDINGS: Vertebrae: No acute fracture or malalignment. Soft tissues: Unremarkable. IMPRESSION: No acute fracture or malalignment. Electronically signed by: Amrit Smith MD 06/05/24 23:[address] 06/05/24 21:46 Exam(s): CT CHEST With Contrast IV Amt: 119ml EXAM: CT Chest With Intravenous Contrast CLINICAL HISTORY: Reason for exam: Trauma. TECHNIQUE: Axial computed tomography images of the chest with intravenous contrast. Automated exposure control was utilized for the study. A dose lowering technique was utilized adhering to the principles of ALARA. CONTRAST: Patient received 119ml of IV contrast COMPARISON: None. FINDINGS: Lungs: Mild interstitial prominence particularly in the dependent lungs, nonspecific, possible compressive atelectasis, or infiltrate. No consolidation. Pulmonary arteries: Mild engorgement. Aorta: No thoracic aortic aneurysm. Pleural space: Mild bilateral pleural effusion. No pneumothorax. Heart: No cardiomegaly. Mild to moderate, intermittent pericardial effusion, maximum thickness posteriorly on the left measuring 12 mm. Bones/joints: No acute fracture. Soft tissues: Peripheral calcified hepatic cyst right upper quadrant. CT abdomen pelvis also done, dictated separately. Lymph nodes: No enlarged lymph nodes. IMPRESSION: 1. Cardiomegaly, vascular prominence, mild bilateral pleural effusions and infiltrates are nonspecific, cannot rule out CHF and/or pneumonia. 2. Mild to moderate PERICARDIAL effusion. 3. CT abdomen pelvis also done, dictated separately. Electronically signed by: Damaris Miranda M.D. 06/06/24 00:[address] 06/05/24 21:46 Exam(s): CT FACIAL Without Contrast EXAM: CT Maxillofacial Without Intravenous Contrast CLINICAL HISTORY: Reason for exam: Trauma. TECHNIQUE: Axial computed tomography images of the face without intravenous contrast. CTDI is 26.77 mGy and DLP is 5422.38 mGy-cm. Automated exposure control was utilized for the study. A dose lowering technique was utilized adhering to the principles of ALARA. COMPARISON: No relevant prior studies available. FINDINGS: Bones/joints: No facial fracture. Soft tissues: Unremarkable. Orbits: Unremarkable. Sinuses: Mucosal thickening within ethmoid and right frontal sinuses. IMPRESSION: No facial fracture. Electronically signed by: Amrit Smith MD 06/05/24 23:[address] 06/05/24 21:46 Exam(s): CT HEAD Without Contrast EXAM: CT Head Without Intravenous Contrast CLINICAL HISTORY: Reason for exam: Trauma. TECHNIQUE: Axial computed tomography images of the head/brain without intravenous contrast. CTDI is 26.77 mGy and DLP is 5422.38 mGy-cm. Automated exposure control was utilized for the study. A dose lowering technique was utilized adhering to the principles of ALARA. COMPARISON: No relevant prior studies available. FINDINGS: Brain: No intracranial hemorrhage, mass-effect, or cerebral edema. Global parenchymal atrophy. Periventricular and subcortical low attenuation which is nonspecific but favored to represent chronic microvascular ischemic changes. Ventricles: Unremarkable. Bones/joints: Unremarkable. No fracture. Soft tissues: Unremarkable. Sinuses: No acute sinusitis. Mastoid air cells: Unremarkable as visualized. IMPRESSION: No acute intracranial abnormality. Electronically signed by: Amrit Smith MD 06/05/24 23:30 PM Head CTA 06/05/24 21:54 Exam(s): CTA HEAD With Contrast IV Amt: 119ml EXAM: CT Angiography Head With Intravenous Contrast CLINICAL HISTORY: Reason for exam: ams. TECHNIQUE: Axial computed tomographic angiography images of the head with intravenous contrast. CTDI is 26.77 mGy and DLP is 5422.38 mGy-cm. Automated exposure control was utilized for the study. A dose lowering technique was utilized adhering to the principles of ALARA. MIP reconstructed images were created and reviewed. Mild motion artifact. CONTRAST: Patient received 119ml of IV contrast COMPARISON: Head CT done earlier. FINDINGS: Right internal carotid artery: Patent. Right anterior cerebral artery: Patent. Right middle cerebral artery: Patent. Right posterior cerebral artery: Patent. Mild stenosis intermittently. Right vertebral artery: Patent. Left internal carotid artery: Patent. Left anterior cerebral artery: Patent. Left middle cerebral artery: Patent. Left posterior cerebral artery: Patent. Mild intermittent stenosis. Left vertebral artery: Patent. Basilar artery: Patent. Other: Atherosclerosis bilateral cavernous ICA and V4 vertebral artery, with moderate, 60-70% stenosis. Diffuse scalp edema, stable, etiology not ascertained. IMPRESSION: 1. Atherosclerosis and moderate stenosis bilateral ICA and vertebral arteries intracranially. 2. 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 3. No aneurysm or large vessel occlusion. Electronically signed by: Damaris Miranda M.D. 06/06/24 00:07 AM Neck CTA 06/05/24 21:54 Exam(s): CTA NECK With Contrast IV Amt: 119ml EXAM: CT Angiography Neck With Intravenous Contrast CLINICAL HISTORY: Reason for exam: ams. TECHNIQUE: Routine carotid CT angiography protocol was performed with intravenous contrast. NASCET criteria using the distal ICAs for comparison were used for evaluation of stenoses. Automated exposure control was utilized for the study. A dose lowering technique was utilized adhering to the principles of ALARA. MIP reconstructed images were created and reviewed. Mild to moderate motion artifact, patient vocalizing during the exam. CONTRAST: Patient received 119ml of IV contrast COMPARISON: None. FINDINGS: Right common carotid artery: Patent. Right internal carotid artery: Patent. Right vertebral artery: Patent. Left common carotid artery: Patent. Left internal carotid artery: Patent. Left vertebral artery: Patent. Other: Dense atherosclerotic calcification bilateral carotid bifurcation, without significant ICA stenosis. Motion artifact limits evaluation. Severe 70-80 % right ECA stenosis. Pericardial effusion in the superior recess, CT chest also done, dictated separately. IMPRESSION: 1. No dissection, occlusion, or significant stenosis. 2. Severe right ECA stenosis. 3. Motion artifact limits evaluation. CAROTID STENOSIS REFERENCE USING NASCET CRITERIA: % ICA stenosis = (1 - narrowest ICA diameter/diameter of distal cervical ICA) x 100. Mild - <50% stenosis. Moderate - 50-69% stenosis. Severe - 70-94% stenosis. Near occlusion - 95-99% stenosis. Occluded - 100% stenosis. Electronically signed by: Damaris Miranda M.D. 06/06/24 00:10 AM Discharge Plan Visit Data Chief Complaint: Trauma Stated Complaint: Fall, AMS, Afib RVR Jaw Pain, Back Pain ED Provider: Don Nicole Discharge Problem: AMS (altered mental status), Fall, Atrial fibrillation with rapid ventricular response, Acute non-ST elevation myocardial infarction (NSTEMI), Acute pericardial effusion Patient Disposition: Being Evaluated by Hospitalist Forms Stand Alone Forms: My [employer] Prescriptions Prescriptions: No Action telmisartan 80 mg tablet 80 mg PO QAM Qty: 90 3RF Gemtesa 75 mg tablet 75 mg PO DAILY Qty: 90 4RF sildenafil (pulm.hypertension) 20 mg tablet 20 mg PO ONCE PRN (Reason: sexual activity) Qty: 15 6RF Rx Instructions: take 1-5 tablets as needed do not take more than 5 tablets in a 24 hour period metoprolol tartrate 50 mg tablet 50 mg PO BID Qty: 180 3RF Eliquis 5 mg tablet 5 mg PO BID Qty: 180 3RF atorvastatin 20 mg tablet 20 mg PO DAILY Qty: 90 3RF nystatin 100,000 unit/gram cream 1 applic topical BID Qty: 30 2RF nystatin 100,000 unit/gram powder 1 applic topical BID Qty: 60 0RF vitamin [id number] acid 0.5-1 mg Tablet 1 tab PO DAILY cholecalciferol (vitamin D3) [Vitamin D3] 125 mcg (5,000 unit) Tablet 125 mcg PO QPM trospium 20 mg tablet 20 mg PO UD Rx Instructions: 20 mg po bid on hold Referrals Referrals: Don Yeager MD [Primary Care Provider] - Discharge Problem: AMS (altered mental status) Qualifiers: Altered mental status type: unspecified Qualified Code(s): R41.82 - Altered mental status, unspecified Fall Qualifiers: Encounter type: initial encounter Qualified Code(s): W19.XXXA - Unspecified fall, initial encounter
[2024-06-05 22:26] LABS: Base Excess VBG -1.1 mEq/L; HCO3 VBG 24 mmol/L; Oxygen Saturation VBG < 60.0 %; PCO2 VBG 42 mmHg (38-50); PO2 VBG 27 mmHg; pH VBG 7.37 (7.36-7.41)
[2024-06-05 22:31] LABS: iSTAT Creatinine 1.2 mg/dl (0.6-1.3); iSTAT Hemoglobin 15.6 g/dl (14.0-18.0); iSTAT Ionized Calcium 1.16 mmol/l (1.12-1.32); iSTAT Potassium 3.7 mmol/L (3.3-5.0)
[2024-06-05] MEDS: methylPREDNISolone 125 MG/2 ML VIAL IV ONE (22:32)
[2024-06-05] MEDS: diphenhydrAMINE 50 MG/ML VIAL IV ONE (22:32)
[2024-06-05] MEDS: OPTIRAY 320 125ml IV ONE (22:34)
[2024-06-05 22:48] LABS: Alanine Aminotransferase 34 U/L (7-52); Albumin Globulin Ratio 1.6 (0.9-2); Albumin Level 3.9 gm/dl (3.4-5.0); Alkaline Phosphatase 113 U/L (34-104); Anion Gap 13 (3-11); Aspartate Aminotransferase 55 U/L (13-39); BUN Creatinine Ratio 21.2 (10-20); Bilirubin,Total 2.7 mg/dl (0.2-1.0); Blood Urea Nitrogen 25 mg/dl (6-23); Calcium 9.9 mg/dl (8.6-10.3); Carbon Dioxide 24 mmol/L (21-32); Chloride 105 mmol/L (98-107); Creatine Kinase 594 U/L (30-223); Est GFR (African American) 64.4 ml/min; Est GFR (Non-African American) 55.5 ml/min; Globulin 2.5 gm/dl (2.5-4.0); Glucose 153 mg/dl (70-99(Fasting)); Magnesium 1.8 mg/dl (1.7-2.4); Potassium 3.8 mmol/L (3.5-5.1); Sodium 142 mmol/L (136-145); Total Protein 6.4 gm/dl (6.0-8.3)
[2024-06-05] MEDS: SODIUM CHLORIDE 0.9% 500 ML IV SCH (22:51)
[2024-06-05 22:54] LABS: Basophils # (auto) 0.02 K/uL (0.00-0.20); Basophils % (auto) 0.1 %; Echinocytes 1+; Eosinophils # (auto) 0.01 K/uL (0.00-0.50); Eosinophils % (auto) 0.1 %; Immature Granulocytes % (auto) 0.6 %; Lymphocytes # (auto) 0.39 K/uL (1.20-3.40); Lymphocytes % (auto) 2.2 %; Mean Corpuscular Hemoglobin 29.4 pg (25.0-34.0); Mean Corpuscular Hgb Conc 33.3 g/dL (32.0-36.0); Mean Corpuscular Volume 88.2 fL (80.0-100.0); Mean Platelet Volume 11.4 fL (9.4-12.4); Monocytes # (auto) 2.46 K/uL (0.11-0.59); Monocytes % (auto) 14.2 %; Neutrophils % (auto) 82.8 %; Platelet Count 192 K/uL (130-400); Platelet Estimate Normal (Normal); Polychromasia 1+; RDW Coefficient of Variation 13.7 % (11.5-14.5); RDW Standard Deviation 44.1 fL (36.4-46.3); White Blood Count 17.38 K/ul (4.8-10.8)
[2024-06-05 23:05] LABS: Thyroid Stimulating Hormone 1.029 uIu/ml (0.300-4.500)
[2024-06-05] MEDS: dilTIAZem HCl 5 MG/ML 5 ML VIAL IV STA (23:15)
[2024-06-05] MEDS: PIPERACILLIN/TAZOBACTAM 4.5 GM/100 ML BAG IV ONE (23:19)
--- NOTE | 2024-06-05 23:30 | CT Scan Report ---
Exam(s): CT HEAD Without Contrast EXAM: CT Head Without Intravenous Contrast CLINICAL HISTORY: Reason for exam: Trauma. TECHNIQUE: Axial computed tomography images of the head/brain without intravenous contrast. CTDI is 26.77 mGy and DLP is 5422.38 mGy-cm. Automated exposure control was utilized for the study. A dose lowering technique was utilized adhering to the principles of ALARA. COMPARISON: No relevant prior studies available. FINDINGS: Brain: No intracranial hemorrhage, mass-effect, or cerebral edema. Global parenchymal atrophy. Periventricular and subcortical low attenuation which is nonspecific but favored to represent chronic microvascular ischemic changes. Ventricles: Unremarkable. Bones/joints: Unremarkable. No fracture. Soft tissues: Unremarkable. Sinuses: No acute sinusitis. Mastoid air cells: Unremarkable as visualized. IMPRESSION: No acute intracranial abnormality. Electronically signed by: Amrit Smith MD 06/05/24 23:30 PM
--- NOTE | 2024-06-05 23:32 | CT Scan Report ---
Exam(s): CT FACIAL Without Contrast EXAM: CT Maxillofacial Without Intravenous Contrast CLINICAL HISTORY: Reason for exam: Trauma. TECHNIQUE: Axial computed tomography images of the face without intravenous contrast. CTDI is 26.77 mGy and DLP is 5422.38 mGy-cm. Automated exposure control was utilized for the study. A dose lowering technique was utilized adhering to the principles of ALARA. COMPARISON: No relevant prior studies available. FINDINGS: Bones/joints: No facial fracture. Soft tissues: Unremarkable. Orbits: Unremarkable. Sinuses: Mucosal thickening within ethmoid and right frontal sinuses. IMPRESSION: No facial fracture. Electronically signed by: Amrit Smith MD 06/05/24 23:31 PM
--- NOTE | 2024-06-05 23:33 | CT Scan Report ---
Exam(s): CT C SPINE EXAM: CT Cervical Spine Without Intravenous Contrast CLINICAL HISTORY: Reason for exam: Trauma. TECHNIQUE: Axial computed tomography images of the cervical spine without intravenous contrast. CTDI is 26.77 mGy and DLP is 5422.38 mGy-cm. Automated exposure control was utilized for the study. A dose lowering technique was utilized adhering to the principles of ALARA. COMPARISON: No relevant prior studies available. FINDINGS: Vertebrae: No acute fracture or malalignment. Soft tissues: Unremarkable. IMPRESSION: No acute fracture or malalignment. Electronically signed by: Amrit Smith MD 06/05/24 23:32 PM
[2024-06-06 00:04] LABS: Appearance Urine Clear (Clear); Bacteria Urine Automated None Seen (None Seen); Bilirubin Urine Negative (Negative); Blood Urine 2+ (Negative); Color Urine Yellow; Epithelial Cell Urine Auto 0-2 /hpf (0-2); Glucose Urine UA Trace (Negative); Ketones Urine 2+ (Negative); Leukocyte Esterase Urine Negative (Negative); Nitrite Urine Negative (Negative); Protein Urine 2+ (Negative); Urobilinogen Urine Negative (Negative); WBC Urine Automated 0-5 /hpf (0-5); pH Urine 5.5 (4.5-7.5)
--- NOTE | 2024-06-06 00:08 | CT Scan Report ---
Exam(s): CTA HEAD With Contrast IV Amt: 119ml EXAM: CT Angiography Head With Intravenous Contrast CLINICAL HISTORY: Reason for exam: ams. TECHNIQUE: Axial computed tomographic angiography images of the head with intravenous contrast. CTDI is 26.77 mGy and DLP is 5422.38 mGy-cm. Automated exposure control was utilized for the study. A dose lowering technique was utilized adhering to the principles of ALARA. MIP reconstructed images were created and reviewed. Mild motion artifact. CONTRAST: Patient received 119ml of IV contrast COMPARISON: Head CT done earlier. FINDINGS: Right internal carotid artery: Patent. Right anterior cerebral artery: Patent. Right middle cerebral artery: Patent. Right posterior cerebral artery: Patent. Mild stenosis intermittently. Right vertebral artery: Patent. Left internal carotid artery: Patent. Left anterior cerebral artery: Patent. Left middle cerebral artery: Patent. Left posterior cerebral artery: Patent. Mild intermittent stenosis. Left vertebral artery: Patent. Basilar artery: Patent. Other: Atherosclerosis bilateral cavernous ICA and V4 vertebral artery, with moderate, 60-70% stenosis. Diffuse scalp edema, stable, etiology not ascertained. IMPRESSION: 1. Atherosclerosis and moderate stenosis bilateral ICA and vertebral arteries intracranially. 2. 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 3. No aneurysm or large vessel occlusion. Electronically signed by: Damaris Miranda M.D. 06/06/24 00:07 AM
--- NOTE | 2024-06-06 00:11 | CT Scan Report ---
Exam(s): CT CHEST With Contrast IV Amt: 119ml EXAM: CT Chest With Intravenous Contrast CLINICAL HISTORY: Reason for exam: Trauma. TECHNIQUE: Axial computed tomography images of the chest with intravenous contrast. Automated exposure control was utilized for the study. A dose lowering technique was utilized adhering to the principles of ALARA. CONTRAST: Patient received 119ml of IV contrast COMPARISON: None. FINDINGS: Lungs: Mild interstitial prominence particularly in the dependent lungs, nonspecific, possible compressive atelectasis, or infiltrate. No consolidation. Pulmonary arteries: Mild engorgement. Aorta: No thoracic aortic aneurysm. Pleural space: Mild bilateral pleural effusion. No pneumothorax. Heart: No cardiomegaly. Mild to moderate, intermittent pericardial effusion, maximum thickness posteriorly on the left measuring 12 mm. Bones/joints: No acute fracture. Soft tissues: Peripheral calcified hepatic cyst right upper quadrant. CT abdomen pelvis also done, dictated separately. Lymph nodes: No enlarged lymph nodes. IMPRESSION: 1. Cardiomegaly, vascular prominence, mild bilateral pleural effusions and infiltrates are nonspecific, cannot rule out CHF and/or pneumonia. 2. Mild to moderate PERICARDIAL effusion. 3. CT abdomen pelvis also done, dictated separately. Electronically signed by: Damaris Miranda M.D. 06/06/24 00:10 AM
--- NOTE | 2024-06-06 00:11 | CT Scan Report ---
Exam(s): CTA NECK With Contrast IV Amt: 119ml EXAM: CT Angiography Neck With Intravenous Contrast CLINICAL HISTORY: Reason for exam: ams. TECHNIQUE: Routine carotid CT angiography protocol was performed with intravenous contrast. NASCET criteria using the distal ICAs for comparison were used for evaluation of stenoses. Automated exposure control was utilized for the study. A dose lowering technique was utilized adhering to the principles of ALARA. MIP reconstructed images were created and reviewed. Mild to moderate motion artifact, patient vocalizing during the exam. CONTRAST: Patient received 119ml of IV contrast COMPARISON: None. FINDINGS: Right common carotid artery: Patent. Right internal carotid artery: Patent. Right vertebral artery: Patent. Left common carotid artery: Patent. Left internal carotid artery: Patent. Left vertebral artery: Patent. Other: Dense atherosclerotic calcification bilateral carotid bifurcation, without significant ICA stenosis. Motion artifact limits evaluation. Severe 70-80 % right ECA stenosis. Pericardial effusion in the superior recess, CT chest also done, dictated separately. IMPRESSION: 1. No dissection, occlusion, or significant stenosis. 2. Severe right ECA stenosis. 3. Motion artifact limits evaluation. CAROTID STENOSIS REFERENCE USING NASCET CRITERIA: % ICA stenosis = (1 - narrowest ICA diameter/diameter of distal cervical ICA) x 100. Mild - <50% stenosis. Moderate - 50-69% stenosis. Severe - 70-94% stenosis. Near occlusion - 95-99% stenosis. Occluded - 100% stenosis. Electronically signed by: Damaris Miranda M.D. 06/06/24 00:10 AM
--- NOTE | 2024-06-06 00:15 | CT Scan Report ---
Exam(s): CT ABDOMEN + PELVIS With Contrast IV Amt: 119ml EXAM: CT Abdomen and Pelvis With Intravenous Contrast CLINICAL HISTORY: Reason for exam: Trauma. TECHNIQUE: Axial computed tomography images of the abdomen and pelvis with intravenous contrast. Automated exposure control was utilized for the study. A dose lowering technique was utilized adhering to the principles of ALARA. CONTRAST: Patient received 119ml of IV contrast COMPARISON: None. FINDINGS: Liver: No injury. Fatty, with a large, peripheral calcified cyst measuring 4 x 4.3 x 3 cm. Gallbladder and bile ducts: No ductal dilation. Pancreas: No ductal dilation. Spleen: No laceration. Adrenals: Unremarkable. No mass. Kidneys and ureters: Bilateral cortical cysts, largest on the left measuring 1.5 cm. No injury. Stomach and bowel: No obstruction. Diverticulosis without diverticulitis. Intraperitoneal space: No free air or fluid. Bones/joints: No acute pelvic or vertebral fracture. Soft tissues: Mild dependent edema or cellulitis hips and proximal thigh posteriorly, possible contusion, given history. Vasculature: Ectasia and atherosclerosis of the aorta. No abdominal aortic aneurysm. Lymph nodes: No enlarged lymph nodes. Bladder: No injury. Reproductive: Multiple prostate seeds as. IMPRESSION: 1. Mild dependent edema or cellulitis hips and proximal thigh posteriorly, possible contusion, given history. 2. No pelvic/vertebral fracture, parenchymal laceration or hemoperitoneum. 3. Peripheral calcified hepatic cyst, renal cysts and diverticulosis incidentally noted. Electronically signed by: Damaris Miranda M.D. 06/06/24 00:14 AM
[2024-06-06] MEDS: dilTIAZem HCl 5 MG/ML 5 ML VIAL IV STA (00:45)
[2024-06-06 01:11] LABS: INR 1.1 (0.9-1.1); Partial Thromboplastin Time 26 Seconds (21-31); Prothrombin Time 11.7 Seconds (9.0-12.0)
--- NOTE | 2024-06-06 01:13 | History & Physical Report ---
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 The patient does not remember this recent fall, however, his significant other feels as likely he has been on the floor for 2 days, since she was last able to get in touch with him. CT head without contrast negative CTA neck, notes severe right ECA stenosis CTA head shows 60 to 70% bilateral ICA stenosis and vertebral artery stenosis. 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 CT scan of face shows no facial fractures CT chest shows cardiomyopathy, with mild bilateral pleural effusion and possible infiltrates CT scan cervical spine is negative CT of abdomen pelvis shows mild dependent edema around the pelvis and hips bilaterally with possible contusion Order MRI of brain without contrast Acetaminophen 1 g IV every 8 hours as needed for mild pain or fever Pantoprazole 40 mg IV x 1 Continue Muller catheter placed in the ED Will consult PT/OT Atrial fibrillation with RVR/persistent atrial fibrillation/presence of LAD DE S/hypertension/chronic anticoagulation- The patient will be admitted to telemetry for serial cardiac enzymes, serial EKG's, cardiac rhythm monitoring and a 2-D echocardiogram with Dopplers. Most recent echocardiogram on 07/27/2022 with ejection fraction 50-55% Patient has been in A-fib with RVR, with rate 140s to 150s and blood pressure in the 160s to 170s/100s to 110s Troponin 2317, with follow-up pending. Likely secondary to increased heart rate, which has likely been going on for at least 2 days without his usual medications Patient has been without his medications for 2 days: Metoprolol tartrate 50 mg p.o. twice daily, apixaban 5 mg p.o. twice daily, telmisartan 80 mg every morning. He will need to be n.p.o. at this time due to significantly dry mouth Hold anticoagulation in the setting of recent trauma He was given Cardizem 10 mg IV x 2 by the ED with minimal improvement in heart rate and blood pressure Give magnesium sulfate 1 g IV x 1 Give potassium chloride 10 mEq IV x 1 Lopressor 5 mg IV every 4 hours, hold for heart rate less than 60 or systolic blood pressure less than 100 Lactated Ringer's 100 mL/h x 1 L Rhabdomyolysis- AST 55, CK 594 Repeat laboratories in the a.m. Possible early aspiration pneumonia- As noted on CT scan Zosyn 4.5 g IV every 8 hours Right groin rash- Place on ketoconazole 2% cream 3 times daily for groin rash Antibiotics as above History of Present Illness Chief Complaint: The patient is brought to the emergency department by EMS, after being found on the floor of his bathroom, by neighbors, after his significant other was not able to get in touch with him for 2 days. She called his neighbors, who went to check on him, and found him on the floor of his bathroom. EMS was then called, and he was then brought to the emergency department. Primary Care Provider: Don Yeager MD The patient is an 88-year-old male with a past medical history including ambulatory dysfunction, history of CVA, persistent atrial fibrillation, chronic anticoagulation, presence of LAD MOIZ, hyperlipidemia, dysarthria, prostate cancer, hypertension, diabetes mellitus, and vitamin D deficiency. He was most recently admitted to [facility] from 04/28-04/29/2024 due to a fall associated ambulatory dysfunction. He has been undergoing physical therapy in the outpatient setting, and reportedly by his significant other was improving. She reported not having been able to contact him since Thursday evening, 2 days ago, and after she called neighbors to check on him, they found him lying on the floor in the bathroom. EMS then brought the patient to the emergency department. And he underwent a trauma evaluation. He was then referred for evaluation for admission to the [facility] hospitalist service Allergies Allergy/AdvReac Type Severity Reaction Status Date / Time clopidogrel Allergy Intermediate HIVES Verified 05/12/24 14:51 Iodinated Contrast Media Allergy Intermediate HIVES Verified 05/12/24 14:51 pollen extracts Allergy Mild Unverified 05/12/24 14:51 [id number]-[id number] Reductase AdvReac Unknown Unknown Verified 05/12/24 14:51 Inhibitor Home Medications Medication Instructions Recorded Confirmed Type cholecalciferol (vitamin D3) 125 125 mcg PO QPM 10/25/21 05/12/24 History mcg (5,000 unit) tablet (Vitamin D3) vitamin B12 0.5 mg-folic acid 1 mg 1 tab PO DAILY 07/27/22 05/12/24 History tablet metoprolol tartrate 50 mg tablet 50 mg PO BID #180 tabs 07/20/23 05/12/24 Rx sildenafil (pulm.hypertension) 20 20 mg PO ONCE PRN sexual activity 10/14/23 05/12/24 Rx mg tablet #15 tabs telmisartan 80 mg tablet 80 mg PO QAM #90 tabs 12/30/23 05/12/24 Rx vibegron 75 mg tablet (Gemtesa) 75 mg PO DAILY #90 tabs 02/29/24 05/12/24 Rx trospium 20 mg tablet 20 mg PO UD 04/28/24 05/12/24 History apixaban 5 mg tablet (Eliquis) 5 mg PO BID #180 tabs 05/12/24 05/12/24 Rx atorvastatin 20 mg tablet 20 mg PO DAILY #90 tabs 05/12/24 05/12/24 Rx nystatin 100,000 unit/gram topical 1 applic topical BID #30 grams 05/12/24 05/12/24 Rx cream nystatin 100,000 unit/gram topical 1 applic topical BID #60 grams 05/12/24 05/12/24 Rx powder Past Med/Surg History Problem List (Updated 06/06/24 @ 00:28 by Don Nicole DO) Acute pericardial effusion (Acute) Acute non-ST elevation myocardial infarction (NSTEMI) (Acute) Atrial fibrillation with rapid ventricular response (Acute) Fall (Acute) AMS (altered mental status) (Acute) Hypokalemia (Acute) Ambulatory dysfunction (Acute) History of CVA (cerebrovascular accident) Persistent atrial fibrillation Frequent headaches Yeast dermatitis Antiplatelet or antithrombotic long-term use Chronic anticoagulation 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 Prostate cancer DX 2006 - HX RADIATION AND SEED IMPLANT Idiopathic urticaria Surgical History History of left cataract extraction History of colonoscopy History of coronary artery stent placement EARLY History of tonsillectomy History of prostate surgery S/P hernia repair HX MULTIPLE Family History Father Myocardial infarction Diabetes Heart disease Hypertension Mother Pancreatic cancer Sister Poliomyelitis Denies family history of Colon cancer Ovarian cancer Prostate cancer Breast cancer Social History Smoking Status: Unknown if ever smoked Age Started Using Tobacco: 17; Age Quit Using Tobacco: 40; packs per day: 2; Cigarettes Per Day: 3-4 packs/day quit 1975; Second Hand Exposure: No; Do You Dip or Chew Tobacco: No; Hx Alcohol Use: No Hx Substance Use: No Preferred Language: Wolof Communication Ability: Effective Visual Impairment: No Limitations Hearing Ability: Normal Sterile Proc Tech Required: No Beliefs That Will Affect Care: None marital status: Single Current Living Situation: Alone current occupational status: retired Feels Safe at Home: Yes Childhood Exposure to Second-Hand Smoke: Yes Dental Care, Regularly: Yes Physical Activity Frequency: 3-4 Times per Week Seatbelt Use: always Sunscreen Use: No Assistive Devices: Cane and Walker Review of Systems Review of Systems: The patient denies chest pain, palpitations, shortness of breath, dyspnea on exertion, cough, lower extremity swelling, sore throat, fevers, chills, sweats, nausea, vomiting, diarrhea , constipation, abdominal pain, pelvic pain, blood in urine or stool, dysuria, urinary frequency or urgency, abnormal bruising or bleeding, focal weakness, numbness or tingling in arms or legs, back or neck pain, or night sweats. The review of systems is otherwise negative other than for that already noted above, and at least 10 systems have been reviewed. Physical Exam Physical Exam: The patient is awake, alert and oriented 3, well developed and well nourished, few ecchymoses on right side of face, otherwise lying in bed and in no acute distress. HEENT--PERRL, EOMI, mucous membranes and oropharynx moderately dry affecting his voice. Neck--supple. No JVD. No bruits. Thyroid normal, trachea midline, no adenopathy. Heart--tachycardic, irregularly irregular. No murmurs, rubs or gallops. Lungs--clear bilaterally, no respiratory distress, no accessory muscle use. Abdomen--normal bowel sounds and soft. Nontender. Nondistended, no hernias or masses, no organomegaly. Extremities-- No edema. Dermatologic--skin is dry, scattered ecchymoses. Right groin with moderately severe rash Neurologic--cranial nerves II through XII grossly intact. Rheumatologic--limited exam Psychiatric--normal affect. Results & Data Results & Data Vital Signs (Past 12 Hours) Vital Signs Temp Pulse Pulse Resp BP BP Pulse Ox 06/06/24 00:45 128 H 20 179/113 H 06/06/24 00:30 143 H 20 97 06/05/24 23:30 133 H 20 167/130 H 95 06/05/24 23:03 157 H 18 06/05/24 23:00 188/137 H 06/05/24 23:00 188/137 H 06/05/24 22:54 149 H 20 92 06/05/24 22:53 90 06/05/24 22:50 156 H 19 200/144 H 91 06/05/24 22:48 148 H 40 H 06/05/24 22:45 200/144 H 06/05/24 22:45 200/144 H 06/05/24 22:15 183/112 H 06/05/24 22:00 173/128 H 06/05/24 21:55 163 H 95 06/05/24 21:54 166 H 21 95 06/05/24 21:54 170 H 24 06/05/24 21:52 144 H 06/05/24 21:50 163 H 173/128 H 06/05/24 21:50 36.7 C 163 H 24 209/137 H 95 06/05/24 21:47 209/137 H 06/05/24 21:45 193/151 H 06/05/24 21:43 186/115 H 06/05/24 21:23 36.7 C 163 H 23 209/137 H 95 O2 Del Method O2 Flow Rate 06/06/24 00:45 Nasal Cannula 2 06/06/24 00:30 Nasal Cannula 2 06/05/24 23:30 Nasal Cannula 1 06/05/24 23:03 06/05/24 23:00 06/05/24 23:00 06/05/24 22:54 06/05/24 22:53 Room Air 06/05/24 22:50 Room Air 06/05/24 22:48 06/05/24 22:45 06/05/24 22:45 06/05/24 22:15 06/05/24 22:00 06/05/24 21:55 Room Air 06/05/24 21:54 06/05/24 21:54 06/05/24 21:52 06/05/24 21:50 06/05/24 21:50 Nasal Cannula 06/05/24 21:47 06/05/24 21:45 06/05/24 21:43 06/05/24 21:23 Laboratory Results Laboratory Results WBC 17.38 K/ul (4.8-10.8) H 06/05/24 21:57 RBC 5.10 M/uL (4.70-6.10) 06/05/24 21:57 Hgb 15.0 g/dl (14.0-18.0) 06/05/24 21:57 POC Hgb 15.6 g/dl (14.0-18.0) 06/05/24 22:18 Hct 45.0 % (42.0-52.0) 06/05/24 21:57 POC Hct 46 % (42-52) 06/05/24 22:18 MCV 88.2 fL (80.0-100.0) 06/05/24 21:57 MCH 29.4 pg (25.0-34.0) 06/05/24 21:57 MCHC 33.3 g/dL (32.0-36.0) 06/05/24 21:57 RDW Std Deviation 44.1 fL (36.4-46.3) 06/05/24 21:57 RDW Coeff of Macho 13.7 % (11.5-14.5) 06/05/24 21:57 Plt Count 192 K/uL (130-400) 06/05/24 21:57 MPV 11.4 fL (9.4-12.4) 06/05/24 21:57 Immature Gran % (Auto) 0.6 % 06/05/24 21:57 Neut % (Auto) 82.8 % 06/05/24 21:57 Lymph % (Auto) 2.2 % 06/05/24 21:57 [place] % (Auto) 14.2 % 06/05/24 21:57 Eos % (Auto) 0.1 % 06/05/24 21:57 Baso % (Auto) 0.1 % 06/05/24 21:57 Neut # (Auto) 14.40 K/uL (1.40-6.50) H 06/05/24 21:57 Lymph # (Auto) 0.39 K/uL (1.20-3.40) L 06/05/24 21:57 [place] # (Auto) 2.46 K/uL (0.11-0.59) H 06/05/24 21:57 Eos # (Auto) 0.01 K/uL (0.00-0.50) 06/05/24 21:57 Baso # (Auto) 0.02 K/uL (0.00-0.20) 06/05/24 21:57 Immature Gran # (Auto) 0.10 K/uL (0.01-0.20) 06/05/24 21:57 Platelet Estimate Normal (Normal) 06/05/24 21:57 Polychromasia 1+ 06/05/24 21:57 Echinocytes 1+ 06/05/24 21:57 PT 11.7 Seconds (9.0-12.0) 06/06/24 00:25 INR 1.1 (0.9-1.1) 06/06/24 00:25 APTT 26 Seconds (21-31) 06/06/24 00:25 PTT Ratio 1.0 06/06/24 00:25 VBG pH 7.37 (7.36-7.41) 06/05/24 21:57 VBG pCO2 42 mmHg (38-50) 06/05/24 21:57 VBG pO2 27 mmHg 06/05/24 21:57 VBG HCO3 24 mmol/L 06/05/24 21:57 VBG O2 Saturation < 60.0 % 06/05/24 21:57 VBG Base Excess -1.1 mEq/L 06/05/24 21:57 POC Sodium 141 mmol/L (135-144) 06/05/24 22:18 Sodium 142 mmol/L (136-145) 06/05/24 21:57 POC Potassium 3.7 mmol/L (3.3-5.0) 06/05/24 22:18 Potassium 3.8 mmol/L (3.5-5.1) 06/05/24 21:57 POC Chloride 105 mmol/L (101-112) 06/05/24 22:18 Chloride 105 mmol/L (98-107) 06/05/24 21:57 Carbon Dioxide 24 mmol/L (21-32) 06/05/24 21:57 POC Total CO2 23 mmol/L (24-31) L 06/05/24 22:18 Anion Gap 13 (3-11) H 06/05/24 21:57 POC Anion Gap 17.0 mmol/L (16-25) 06/05/24 22:18 POC BUN 24 mg/dl (7-18) H 06/05/24 22:18 BUN 25 mg/dl (6-23) H 06/05/24 21:57 Creatinine 1.18 mg/dl (0.6-1.4) 06/05/24 21:57 POC Creatinine 1.2 mg/dl (0.6-1.3) 06/05/24 22:18 Est Cr Clr Drug Dosing Not Reportable 06/05/24 21:57 Est GFR ( Amer) 64.4 ml/min 06/05/24 21:57 Est GFR (Non-Af Amer) 55.5 ml/min 06/05/24 21:57 BUN/Creatinine Ratio 21.2 (10-20) H 06/05/24 21:57 Glucose 153 mg/dl (70-99(Fasting)) H 06/05/24 21:57 POC Glucose (other) 151 mg/dl (70-99) H 06/05/24 22:18 Calcium 9.9 mg/dl (8.6-10.3) 06/05/24 21:57 POC Ioniz Calcium [place] 1.16 mmol/l (1.12-1.32) 06/05/24 22:18 Magnesium 1.8 mg/dl (1.7-2.4) 06/05/24 21:57 Total Bilirubin 2.7 mg/dl (0.2-1.0) H 06/05/24 21:57 AST 55 U/L (13-39) H 06/05/24 21:57 ALT 34 U/L (7-52) 06/05/24 21:57 Alkaline Phosphatase 113 U/L (34-104) H 06/05/24 21:57 Total Creatine Kinase 594 U/L (30-223) H 06/05/24 21:57 Troponin I High Sens 2236.6 pg/ml (0-20) H* 06/06/24 00:25 Total Protein 6.4 gm/dl (6.0-8.3) 06/05/24 21:57 Albumin 3.9 gm/dl (3.4-5.0) 06/05/24 21:57 Globulin 2.5 gm/dl (2.5-4.0) 06/05/24 21:57 Albumin/Globulin Ratio 1.6 (0.9-2) 06/05/24 21:57 TSH 1.029 uIu/ml (0.300-4.500) 06/05/24 21:57 Urine Color Yellow 06/05/24 23:40 Urine Appearance Clear (Clear) 06/05/24 23:40 Urine pH 5.5 (4.5-7.5) 06/05/24 23:40 Ur Specific [place] 1.030 (1.000-1.030) 06/05/24 23:40 Urine Protein 2+ (Negative) H 06/05/24 23:40 Urine Glucose (UA) Trace (Negative) H 06/05/24 23:40 Urine Ketones 2+ (Negative) H 06/05/24 23:40 Urine Blood 2+ (Negative) H 06/05/24 23:40 Urine Nitrite Negative (Negative) 06/05/24 23:40 Urine Bilirubin Negative (Negative) 06/05/24 23:40 Urine Urobilinogen Negative (Negative) 06/05/24 23:40 Ur Leukocyte Esterase Negative (Negative) 06/05/24 23:40 Urine WBC (Auto) 0-5 /hpf (0-5) 06/05/24 23:40 Urine RBC (Auto) 6-10 /hpf (0-2) H 06/05/24 23:40 U Hyaline Cast (Auto) 3-5 /lpf (0-2) H 06/05/24 23:40 U Epithel Cells (Auto) 0-2 /hpf (0-2) 06/05/24 23:40 Urine Bacteria (Auto) None Seen (None Seen) 06/05/24 23:40 Ethyl Alcohol mg/dL < 10.0 mg/dl (<10.0) 06/05/24 21:57 Blood Type A Positive 06/05/24 21:57 Antibody Screen NEGATIVE 06/05/24 21:57 Impressions Abdomen/Pelvis CT 06/05/24 21:46 Exam(s): CT ABDOMEN + PELVIS With Contrast IV Amt: 119ml EXAM: CT Abdomen and Pelvis With Intravenous Contrast CLINICAL HISTORY: Reason for exam: Trauma. TECHNIQUE: Axial computed tomography images of the abdomen and pelvis with intravenous contrast. Automated exposure control was utilized for the study. A dose lowering technique was utilized adhering to the principles of ALARA. CONTRAST: Patient received 119ml of IV contrast COMPARISON: None. FINDINGS: Liver: No injury. Fatty, with a large, peripheral calcified cyst measuring 4 x 4.3 x 3 cm. Gallbladder and bile ducts: No ductal dilation. Pancreas: No ductal dilation. Spleen: No laceration. Adrenals: Unremarkable. No mass. Kidneys and ureters: Bilateral cortical cysts, largest on the left measuring 1.5 cm. No injury. Stomach and bowel: No obstruction. Diverticulosis without diverticulitis. Intraperitoneal space: No free air or fluid. Bones/joints: No acute pelvic or vertebral fracture. Soft tissues: Mild dependent edema or cellulitis hips and proximal thigh posteriorly, possible contusion, given history. Vasculature: Ectasia and atherosclerosis of the aorta. No abdominal aortic aneurysm. Lymph nodes: No enlarged lymph nodes. Bladder: No injury. Reproductive: Multiple prostate seeds as. IMPRESSION: 1. Mild dependent edema or cellulitis hips and proximal thigh posteriorly, possible contusion, given history. 2. No pelvic/vertebral fracture, parenchymal laceration or hemoperitoneum. 3. Peripheral calcified hepatic cyst, renal cysts and diverticulosis incidentally noted. Electronically signed by: Damaris Miranda M.D. 06/06/24 00:[address] 06/05/24 21:46 Exam(s): CT C SPINE EXAM: CT Cervical Spine Without Intravenous Contrast CLINICAL HISTORY: Reason for exam: Trauma. TECHNIQUE: Axial computed tomography images of the cervical spine without intravenous contrast. CTDI is 26.77 mGy and DLP is 5422.38 mGy-cm. Automated exposure control was utilized for the study. A dose lowering technique was utilized adhering to the principles of ALARA. COMPARISON: No relevant prior studies available. FINDINGS: Vertebrae: No acute fracture or malalignment. Soft tissues: Unremarkable. IMPRESSION: No acute fracture or malalignment. Electronically signed by: Amrit Smith MD 06/05/24 23:[address] 06/05/24 21:46 Exam(s): CT CHEST With Contrast IV Amt: 119ml EXAM: CT Chest With Intravenous Contrast CLINICAL HISTORY: Reason for exam: Trauma. TECHNIQUE: Axial computed tomography images of the chest with intravenous contrast. Automated exposure control was utilized for the study. A dose lowering technique was utilized adhering to the principles of ALARA. CONTRAST: Patient received 119ml of IV contrast COMPARISON: None. FINDINGS: Lungs: Mild interstitial prominence particularly in the dependent lungs, nonspecific, possible compressive atelectasis, or infiltrate. No consolidation. Pulmonary arteries: Mild engorgement. Aorta: No thoracic aortic aneurysm. Pleural space: Mild bilateral pleural effusion. No pneumothorax. Heart: No cardiomegaly. Mild to moderate, intermittent pericardial effusion, maximum thickness posteriorly on the left measuring 12 mm. Bones/joints: No acute fracture. Soft tissues: Peripheral calcified hepatic cyst right upper quadrant. CT abdomen pelvis also done, dictated separately. Lymph nodes: No enlarged lymph nodes. IMPRESSION: 1. Cardiomegaly, vascular prominence, mild bilateral pleural effusions and infiltrates are nonspecific, cannot rule out CHF and/or pneumonia. 2. Mild to moderate PERICARDIAL effusion. 3. CT abdomen pelvis also done, dictated separately. Electronically signed by: Damaris Miranda M.D. 06/06/24 00:[address] 06/05/24 21:46 Exam(s): CT FACIAL Without Contrast EXAM: CT Maxillofacial Without Intravenous Contrast CLINICAL HISTORY: Reason for exam: Trauma. TECHNIQUE: Axial computed tomography images of the face without intravenous contrast. CTDI is 26.77 mGy and DLP is 5422.38 mGy-cm. Automated exposure control was utilized for the study. A dose lowering technique was utilized adhering to the principles of ALARA. COMPARISON: No relevant prior studies available. FINDINGS: Bones/joints: No facial fracture. Soft tissues: Unremarkable. Orbits: Unremarkable. Sinuses: Mucosal thickening within ethmoid and right frontal sinuses. IMPRESSION: No facial fracture. Electronically signed by: Amrit Smith MD 06/05/24 23:[address] 06/05/24 21:46 Exam(s): CT HEAD Without Contrast EXAM: CT Head Without Intravenous Contrast CLINICAL HISTORY: Reason for exam: Trauma. TECHNIQUE: Axial computed tomography images of the head/brain without intravenous contrast. CTDI is 26.77 mGy and DLP is 5422.38 mGy-cm. Automated exposure control was utilized for the study. A dose lowering technique was utilized adhering to the principles of ALARA. COMPARISON: No relevant prior studies available. FINDINGS: Brain: No intracranial hemorrhage, mass-effect, or cerebral edema. Global parenchymal atrophy. Periventricular and subcortical low attenuation which is nonspecific but favored to represent chronic microvascular ischemic changes. Ventricles: Unremarkable. Bones/joints: Unremarkable. No fracture. Soft tissues: Unremarkable. Sinuses: No acute sinusitis. Mastoid air cells: Unremarkable as visualized. IMPRESSION: No acute intracranial abnormality. Electronically signed by: Amrit Smith MD 06/05/24 23:30 PM Head CTA 06/05/24 21:54 Exam(s): CTA HEAD With Contrast IV Amt: 119ml EXAM: CT Angiography Head With Intravenous Contrast CLINICAL HISTORY: Reason for exam: ams. TECHNIQUE: Axial computed tomographic angiography images of the head with intravenous contrast. CTDI is 26.77 mGy and DLP is 5422.38 mGy-cm. Automated exposure control was utilized for the study. A dose lowering technique was utilized adhering to the principles of ALARA. MIP reconstructed images were created and reviewed. Mild motion artifact. CONTRAST: Patient received 119ml of IV contrast COMPARISON: Head CT done earlier. FINDINGS: Right internal carotid artery: Patent. Right anterior cerebral artery: Patent. Right middle cerebral artery: Patent. Right posterior cerebral artery: Patent. Mild stenosis intermittently. Right vertebral artery: Patent. Left internal carotid artery: Patent. Left anterior cerebral artery: Patent. Left middle cerebral artery: Patent. Left posterior cerebral artery: Patent. Mild intermittent stenosis. Left vertebral artery: Patent. Basilar artery: Patent. Other: Atherosclerosis bilateral cavernous ICA and V4 vertebral artery, with moderate, 60-70% stenosis. Diffuse scalp edema, stable, etiology not ascertained. IMPRESSION: 1. Atherosclerosis and moderate stenosis bilateral ICA and vertebral arteries intracranially. 2. 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 3. No aneurysm or large vessel occlusion. Electronically signed by: Damaris Miranda M.D. 06/06/24 00:07 AM Neck CTA 06/05/24 21:54 Exam(s): CTA NECK With Contrast IV Amt: 119ml EXAM: CT Angiography Neck With Intravenous Contrast CLINICAL HISTORY: Reason for exam: ams. TECHNIQUE: Routine carotid CT angiography protocol was performed with intravenous contrast. NASCET criteria using the distal ICAs for comparison were used for evaluation of stenoses. Automated exposure control was utilized for the study. A dose lowering technique was utilized adhering to the principles of ALARA. MIP reconstructed images were created and reviewed. Mild to moderate motion artifact, patient vocalizing during the exam. CONTRAST: Patient received 119ml of IV contrast COMPARISON: None. FINDINGS: Right common carotid artery: Patent. Right internal carotid artery: Patent. Right vertebral artery: Patent. Left common carotid artery: Patent. Left internal carotid artery: Patent. Left vertebral artery: Patent. Other: Dense atherosclerotic calcification bilateral carotid bifurcation, without significant ICA stenosis. Motion artifact limits evaluation. Severe 70-80 % right ECA stenosis. Pericardial effusion in the superior recess, CT chest also done, dictated separately. IMPRESSION: 1. No dissection, occlusion, or significant stenosis. 2. Severe right ECA stenosis. 3. Motion artifact limits evaluation. CAROTID STENOSIS REFERENCE USING NASCET CRITERIA: % ICA stenosis = (1 - narrowest ICA diameter/diameter of distal cervical ICA) x 100. Mild - <50% stenosis. Moderate - 50-69% stenosis. Severe - 70-94% stenosis. Near occlusion - 95-99% stenosis. Occluded - 100% stenosis. Electronically signed by: Damaris Miranda M.D. 06/06/24 00:10 AM Code Status & VTE Plan Code Status Full code VTE Prophylaxis Plan VTE Prophylaxis will be ordered: Yes PG Care Time/CCT Total # of Minutes Spent Total Time Spent with Patient: Total time spent is greater than 50% in coordination of care (as documented) at patient's floor/unit and/or counseling patient: Coding Level of Care Code 48862 INT INP/OBS CARE 375MIN Diagnoses Fall W19.XXXA Encounter type: initial encounter AMS (altered mental status) R41.82 Altered mental status type: unspecified Acute pericardial effusion I30.9 Acute non-ST elevation myocardial infarction (NSTEMI) I21.4 Atrial fibrillation with rapid ventricular response I48.91 Ambulatory dysfunction R26.2 History of CVA (cerebrovascular accident) Z86.73 Persistent atrial fibrillation I48.19 Chronic anticoagulation Z79.01 Presence of drug coated stent in LAD coronary artery Z95.5 Hyperlipidemia E78.5 DM type 2 (diabetes mellitus, type 2) E11.9 Hypertension I10 (1) Fall Encounter type: initial encounter Qualified Code(s): W19.XXXA - Unspecified fall, initial encounter (2) AMS (altered mental status) Altered mental status type: unspecified Qualified Code(s): R41.82 - Altered mental status, unspecified
[2024-06-06] MEDS: LACTATED RINGER'S 1,000 ML IV STA (01:24)
[2024-06-06] MEDS: PANTOprazole 40 MG in SYRINGE 0 ML IV STA (01:24)
[2024-06-06] MEDS ORDERED: ACETAMINOPHEN 1000 MG/100 ML IV IV PRN (01:52)
[2024-06-06] MEDS ORDERED: ONDANSETRON INJ 2 MG/ML 2 ML VIAL IV PRN (01:52)
[2024-06-06] MEDS: METOPROLOL TARTRATE 1 MG/ML VIAL IV SCH ×2 (04:01→20:14)
[2024-06-06] MEDS: POTASSIUM CHLORIDE / WTR 10 MEQ/100 ML PLCT IV ONE (04:03)
[2024-06-06] MEDS: MAGNESIUM SULFATE / D5W 1 GM/100 ML BAG IV ONE (04:04)
--- NOTE | 2024-06-06 04:23 | Magnetic Resonance Report ---
Exam(s): MRI HEAD Without Contrast EXAM: MR Head Without Intravenous Contrast CLINICAL HISTORY: Reason for exam: LOC, s/p fall. TECHNIQUE: Magnetic resonance images of the head/brain without intravenous contrast in multiple planes. COMPARISON: Prior head CT from June 05, 2024.. FINDINGS: Brain: Remote ischemic injury of the left capsule. Advanced nonspecific white matter changes. No mass. No hemorrhage. No acute infarct. The flow voids at the base of are intact. Ventricles: Moderate ventriculomegaly. Bones/joints: Unremarkable. No acute fracture. Sinuses: Chronic pansinusitis. No acute sinusitis. Mastoid air cells: Unremarkable as visualized. No mastoid effusion. Orbits: Bilateral lens replacements. IMPRESSION: No evidence of acute intracranial pathology. Electronically signed by: Diane Rosario MD 06/06/24 04:22 AM
[2024-06-06 05:36] LABS: Albumin Level 3.6 gm/dl (3.4-5.0); BUN Creatinine Ratio 21.1 (10-20); Calcium 9.3 mg/dl (8.6-10.3); Creatinine Clr Calc Pharmacy 51.3 ml/min; Est GFR (African American) 67.1 ml/min; Est GFR (Non-African American) 57.9 ml/min; Phosphorus 2.9 mg/dl (2.5-4.9); Potassium 3.7 mmol/L (3.5-5.1)
[2024-06-06] MEDS: PIPERACILLIN/TAZOBACTAM 4.5 GM/100 ML BAG IV SCH (05:59)
--- NOTE | 2024-06-06 06:58 | XRay Report ---
XR chest 1V portable CLINICAL HISTORY: fall TECHNIQUE: Single frontal radiograph of the chest was obtained. Comparison: Comparison is made to chest radiograph 04/28/2024 FINDINGS: No lines and tubes are seen. Cardiomegaly is noted. The aortic arch is calcified. The lungs are clear . Small left pleural effusion is seen. IMPRESSION: Small left pleural effusion without acute abnormality. ACT 112: Negative or not required by law. Electronically signed by: Rc Hill M.D. 06/06/2024 6:56 AM
[2024-06-06] MEDS: KETOCONAZOLE 2% CR 15 GM TUBE EXT SCH (08:02)
[2024-06-06 08:58] LABS: Influenza A virus by PCR Negative (Neg); Influenza B virus by PCR Negative (Neg); RSV by PCR Negative (Neg); SARS CoV2 RNA(COVID-19) Ceph NEGATIVE (Negative)
[2024-06-06] MEDS ORDERED: METOPROLOL TARTRATE 1 MG/ML VIAL IV PRN (11:45)
--- NOTE | 2024-06-06 11:53 | Hospitalist Progress Note ---
Date of Service June 06, 2024 Assessment & Plan (1) Atrial fibrillation with rapid ventricular response: (2) Acute non-ST elevation myocardial infarction (NSTEMI): (3) Sepsis: (4) Acute metabolic encephalopathy: (5) Acute pericardial effusion: (6) Persistent atrial fibrillation: (7) DM type 2 (diabetes mellitus, type 2): Plan 88 y/o man with afib, CAD with history of LAD stent, was found down at home by a family member. Unknown down time, confused, dehydrated. In afib with RVR. NSTEMI unknown whether type 1 or type 2 but no chest pain or specific EKG changes other than expected for rapid A-fib. Sepsis, possibly right groin cellulitis and/or aspiration pneumonia/pneumonitis but remains unclear. Acute metabolic encephalopathy related to his acute medical conditions, brain MRI was negative for stroke. Has ecchymoses face, right groin especially and CT head/neck/chest/abdomen/pelvis in ED unrevealing, pericardial effusion noted. NSTEMI, CAD, Afib with RVR -serial troponin - HS trop still rising now 3000s -IV fluids. Failed trial of oral intake, consulted ST - was on apixaban but last dose unknown might have been several days, check 10- day, check PT/INR and PTT start heparin drip if/when Xa no longer elevated -got one dose oral metoprolol this AM, continue metoprolol IV scheduled until swallowing pills safely -aspirin NV -TTE reviewed - EF 45-50%, base to mid inferior, inferolateral, and lateral moderate hypokinesis which is new since last study 07/2022. small pericardial effusion without clear signs of tamponade -consult cardiology Aspiration pneumonitis/pneumonia - possible, mild nonspecific infiltrates on chest CT. Also possible R groin cellulitis but appears mild -repeat CBC now and in AM -continue IV fluids, pip-tazo -ketoconazole for R groin candidiasis -check procalcitonin -obtained Xray R hip/femur - no fracture mildly elevated CK. Was only 500, this doesn't meet criteria for rhabdomyolysis -IV fluids, recheck in AM elevated bilirubin, AST/ALT not elevated and no abdominal pain or tenderness, nothing remarkable on CT. Most likely related to congestion from cardiac dysfunction -repeat CMP now, AM CMP -monitor abdominal exam PAD based on RLE vascular calcifications seen on xray, CT. history of CVA -secondary risk reduction measures - will line up with his eventual cardiac regimen. Eventually should be on statin, antiplatelet, B-karla. DM type 2 -monitor BG and use PRN short acting insulin until taking po Hypertension History of prostate cancer -currently with [facility] because of critical illness AM CMP, CBC, CK Fall, ambulatory dysfunction PT/OT Anticipate will need SNF. Lives alone. Admission and Anticipated Discharge Date Admission Date: June 06, 2024 Subjective some speech intelligible, some speech garbled confused and can't provide history said he did not feel short of breath, no chest pain or abdominal pain can't answer what happened with R groin bruising and redness Physical Exam 2 Physical Exam: PHYSICAL EXAMINATION Last 24h vital signs reviewed, see documentation in flowsheet General: ill-appearing, lethargic but arousable HEENT: pupils round and equal, sclerae anicteric, soft conjunctival hemorrhage on the right, dry mucus membranes. old/dark appearing ecchymosis right jaw Lungs: Normal respiratory effort. mildly coarse diffusely bilaterally, no wheezing. Heart: tachycardic irregularly irregular, no murmurs. No JVD Abdomen: Soft, nontender, nondistended. Bowel sounds present. ecchymosis right groin also old appearing, erythema in right groin fold candidiasis present possible component of cellulitis Extremities: Warm, dry, well-perfused. 2+ lower extremity edema Neuro: lethargic but arousable speech garbled some words are intelligible confused followed basic axial commands, face symmetric, moves 4 extremities spontaneously and equally Psych: cannot assess however not agitated Results & Data Results & Data Vital Signs (Past 12 Hours) Vital Signs Pulse Pulse Resp BP BP Pulse Ox Pulse Ox 06/06/24 10:52 109 H 20 163/91 H 97 06/06/24 08:24 06/06/24 08:21 102 H 155/82 H 06/06/24 08:02 131 H 183/110 H 06/06/24 07:22 123 H 06/06/24 07:08 110 H 20 140/113 H 95 06/06/24 06:04 110 H 18 190/110 H 95 06/06/24 04:21 107 H 159/112 H 06/06/24 04:01 141 H 191/120 H 06/06/24 03:00 148 H 13 186/109 H 96 06/06/24 01:53 146 H 06/06/24 01:52 95 06/06/24 01:33 115 H 22 122/101 H 96 06/06/24 00:57 107 H 22 153/121 H 96 06/06/24 00:45 128 H 20 179/113 H 95 06/06/24 00:30 143 H 20 97 O2 Del Method O2 Del Method O2 Flow Rate O2 Flow Rate 06/06/24 10:52 Nasal Cannula 2 06/06/24 08:24 Room Air 2 06/06/24 08:21 06/06/24 08:02 06/06/24 07:22 06/06/24 07:08 Room Air 06/06/24 06:04 Nasal Cannula 2 06/06/24 04:21 06/06/24 04:01 06/06/24 03:00 06/06/24 01:53 06/06/24 01:52 Nasal Cannula 2 06/06/24 01:33 06/06/24 00:57 06/06/24 00:45 Nasal Cannula 2 06/06/24 00:30 Nasal Cannula 2 Laboratory Results 06/05/24 21:57 06/06/24 04:37 PG Care Time/CCT Total # of Minutes Spent Total Time Spent with Patient: Total time spent is greater than 50% in coordination of care (as documented) at patient's floor/unit and/or counseling patient: Coding Level of Care Code None Diagnoses Atrial fibrillation with rapid ventricular response I48.91 Acute non-ST elevation myocardial infarction (NSTEMI) I21.4 Sepsis A41.9 Acute metabolic encephalopathy G93.41 Acute pericardial effusion I30.9 Persistent atrial fibrillation I48.19 DM type 2 (diabetes mellitus, type 2) E11.9
[2024-06-06] MEDS: ASPIRIN 81 MG CHEW ONE (12:01)
[2024-06-06] MEDS: ASPIRIN 81 MG CHEW PO SCH (12:01)
[2024-06-06] MEDS: METOPROLOL TARTRATE 50 MG TAB PO SCH (12:01)
--- NOTE | 2024-06-06 12:45 | XRay Report ---
XR femur RT 2V routine CLINICAL HISTORY: fall, R hip/groin ecchymosis TECHNIQUE: 2 radiographic views of the right femur were obtained. Comparison: Comparison is made to CT abdomen pelvis 06/05/2024 FINDINGS: There is no evidence of an acute fracture. Degenerative changes are seen in the hip and knee joints. Vascular calcifications are noted. Incidental note is made of prostate therapy beads. IMPRESSION: No evidence of acute bony injury. ACT 112: Negative or not required by law. Electronically signed by: Rc Hill M.D. 06/06/2024 12:44 PM
--- NOTE | 2024-06-06 13:19 | XRay Report ---
RIGHT HIP 2 VIEWS CLINICAL HISTORY: Fall. Right hip pain. FINDINGS: AP and frog-leg views of the right hip are correlated with pelvic x-ray dated 04/28/2024. Th e skeletal structures are osteopenic. There is no radiographic evidence of acute fracture involving t he right hip or the visualized right hemipelvis. [id number] arthritic change and joint space na rrowing is seen in the hip. The overlying soft tissues are normal as imaged. Atherosclerotic calcific ation is seen in the right femoral artery. Brachytherapy implants project over the prostate. A Muller catheter is in place. IMPRESSION: No acute bony abnormality is identified. Electronically signed by: Mitch Manjarrez M.D. 06/06/2024 1:18 PM
--- NOTE | 2024-06-06 14:21 | XCELERA ---
[id number] \\[facility]\[email or web address]_[email or web address]\[id number]
--- NOTE | 2024-06-06 15:34 | Cardiology Consultation ---
Date of Consultation June 06, 2024 Assessment & Plan (1) Fall: 2. Persistent atrial fibrillation with RVR 3. Small pericardial effusionno signs of tamponade 4. Elevated troponinsuspect demand 5. History of CAD post remote LAD stent 6. Hypertension 7. Aspiration pneumoniaon Zosyn 8. Gait instability/repeated falls 9. Prior CVA 10. Type II DM 11. Groin rash 12. Bilateral moderate carotid artery disease Etiology of patient's fall unclear. No new CVA. Troponin rising but low suspicion for ACS. Suspect likely demand in the setting of chronic CAD AF persistent, RVR likely secondary to stress Effusion is new from 2021. No evidence of tamponade. Possibly traumatic in the setting of anticoagulation and trauma Repeat limited echo tomorrow or if change in hemodynamics Continue to hold anticoagulation until clear pericardial effusion stable Continue to trend troponin until peak. Continue aspirin Agree with current rate control with IV/PO metoprolol. Okay with heart rates in the 110s and below Continue to hold home telmisartan. No need for additional diuretics at this time. Will follow History of Present Illness Attending Physician: Franca Powers MD History of Present Illness Mr. Russ is a very pleasant 88-year-old man seen in hospital today due to A- fib with RVR, elevated troponin and pericardial effusion. His primary multimedia authoring specialist is Dr. Don. History includes persistent AF on Anticoagulation, CAD post remote LAD stenting, type II DM, hypertension, chronic bilateral lower extremity edema. He had a CVA 07/2022 (during admit HS TropI elevated to 2000s) minimal residual dysarthria/right hand weakness. Also with gait instability and prior falls most recently admitted 1 month ago. Patient was found down after some unknown amount of time ?>1 day. Initially confused, dehydrated with questionable rhabdomyolysis. Patient does not recall any details regarding fall or being down. Hypertensive up to 200s on presentation. A-fib with RVR up to 160s. ECG showed AF with subtle anterior ST depression. HS TropI 2300 now up to 3300. Echo showed EF 45-50% with old inferior/inferolateral wall motion normality and new lateral wall motion abnormality. Also with new small pericardial effusion without clear signs of tamponade. Brain MRI unremarkable. Neck CTA with 60- 70% bilateral ICA stenosis. Chest CT with small pleural effusions, mild edema. Has received IV Dilt x 1, IV/p.o. metoprolol. Being treated for possible aspiration pneumonia. Currently denies any pain. Reports feeling more lucid. Social history: Lives independently and [facility]. 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 Remote tobacco use Allergies Allergy/AdvReac Type Severity Reaction Status Date / Time clopidogrel Allergy Intermediate HIVES Verified 06/06/24 09:17 Iodinated Contrast Media Allergy Intermediate HIVES Verified 06/06/24 09:17 pollen extracts Allergy Mild Wheezing Unverified 06/06/24 09:17 Ukawzfh-HZD-QiZ Reductase AdvReac Unknown Unknown Verified 06/06/24 09:17 Inhibitor Home Medications Medication Instructions Recorded Confirmed Type cholecalciferol (vitamin D3) 125 125 mcg PO QPM 10/25/21 06/06/24 History mcg (5,000 unit) tablet (Vitamin D3) vitamin B12 0.5 mg-folic acid 1 mg 1 tab PO DAILY 07/27/22 06/06/24 History tablet metoprolol tartrate 50 mg tablet 50 mg PO BID #180 tabs 07/20/23 06/06/24 Rx sildenafil (pulm.hypertension) 20 20 mg PO ONCE PRN sexual activity 10/14/23 06/06/24 Rx mg tablet #15 tabs telmisartan 80 mg tablet 80 mg PO QAM #90 tabs 12/30/23 06/06/24 Rx vibegron 75 mg tablet (Gemtesa) 75 mg PO DAILY #90 tabs 02/29/24 06/06/24 Rx trospium 20 mg tablet 0 mg PO BID 04/28/24 06/06/24 History apixaban 5 mg tablet (Eliquis) 5 mg PO BID #180 tabs 05/12/24 06/06/24 Rx atorvastatin 20 mg tablet 20 mg PO DAILY #90 tabs 05/12/24 06/06/24 Rx nystatin 100,000 unit/gram topical 1 applic topical BID #30 grams 05/12/24 06/06/24 Rx cream nystatin 100,000 unit/gram topical 1 applic topical BID #60 grams 05/12/24 06/06/24 Rx powder Patient History Medical History Elevated troponin Acute right hemiparesis Elevated troponin Atrial fibrillation, new onset Acute CVA (cerebrovascular accident) History of idiopathic urticaria 3-4 YR AGO, HIVES FOR 1 YR - UNKNOWN ETIOLOGY- NO RE-OCCURENCE Elevated hemoglobin A1c Overactive bladder 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 Prostate cancer DX 2006 - HX RADIATION AND SEED IMPLANT Idiopathic urticaria Surgical History History of left cataract extraction History of colonoscopy History of coronary artery stent placement EARLY 1999' History of tonsillectomy History of prostate surgery S/P hernia repair HX MULTIPLE Family History Father Myocardial infarction Diabetes Heart disease Hypertension Mother Pancreatic cancer Sister Poliomyelitis Denies family history of Colon cancer Ovarian cancer Prostate cancer Breast cancer Social History Smoking Status: Unknown if ever smoked Age Started Using Tobacco: 17; Age Quit Using Tobacco: 40; packs per day: 2; Cigarettes Per Day: 3-4 packs/day quit 1975; Second Hand Exposure: No; Do You Dip or Chew Tobacco: No; Tobacco Cessation Education Requested by Patient: No Hx Alcohol Use: No Hx Substance Use: No Preferred Language: [place] Communication Ability: Effective Visual Impairment: No Limitations Hearing Ability: Normal Account Installation Specialist Required: No Beliefs That Will Affect Care: None marital status: Single Current Living Situation: Alone current occupational status: retired Other Information That Helps Us Care for You: No Feels Safe at Home: Yes Safety Concerns: Feels Safe At This Time Childhood Exposure to Second-Hand Smoke: Yes Dental Care, Regularly: Yes Physical Activity Frequency: 3-4 Times per Week Seatbelt Use: always Sunscreen Use: No Assistive Devices: Cane and Walker Review of Systems Review of Systems: All systems reviewed & are unremarkable except as noted in HPI & below Physical Exam Physical Exam: General: Comfortable, conversant HEENT: Sclerae anicteric right eye erythema conjunctival hemorrhage Lungs: Clear with coarse breath sounds on left. No crackles Cardiac: Irregular irregular, no murmurs Vascular: 2+ radial, diminished DP pulses bilaterally Abdomen: Soft, nontender Extremities: Well perfused, 1+ left greater than right lower extremity edema Skin: Bruising over right chin, right shoulder/chest. Erythematous rash over right groin. Muller in place Psych: Alert oriented, normal affect and mood Results & Data Vital Signs (Past 12 Hours) Vital Signs Temp Pulse Pulse Pulse Resp BP BP 06/06/24 14:09 98.1 F 98 H 18 143/87 H 06/06/24 14:00 92 H 06/06/24 14:00 06/06/24 12:48 130 H 20 174/124 H 06/06/24 10:52 109 H 20 163/91 H 06/06/24 08:24 06/06/24 08:21 102 H 155/82 H 06/06/24 08:02 131 H 183/110 H 06/06/24 07:22 123 H 06/06/24 07:08 110 H 20 140/113 H 06/06/24 06:04 110 H 18 190/110 H 06/06/24 04:21 107 H 159/112 H 06/06/24 04:01 141 H 191/120 H Pulse Ox O2 Del Method O2 Flow Rate 06/06/24 14:09 97 Room Air 06/06/24 14:00 06/06/24 14:00 Room Air 06/06/24 12:48 90 Room Air 06/06/24 10:52 97 Nasal Cannula 2 06/06/24 08:24 Room Air 2 06/06/24 08:21 06/06/24 08:02 06/06/24 07:22 06/06/24 07:08 95 Room Air 06/06/24 06:04 95 Nasal Cannula 2 06/06/24 04:21 06/06/24 04:01 PG Care Time/CCT Total # of Minutes Spent Total Time Spent with Patient: Total time spent is greater than 50% in coordination of care (as documented) at patient's floor/unit and/or counseling patient: Coding Level of Care Code 41336 INT INP/OBS CARE 3/75MIN Diagnoses Fall W19.XXXA Encounter type: initial encounter (1) Fall Encounter type: initial encounter Qualified Code(s): W19.XXXA - Unspecified fall, initial encounter
[2024-06-06 16:46] LABS: Albumin Globulin Ratio 1.6 (0.9-2); Albumin Level 3.1 gm/dl (3.4-5.0); BUN Creatinine Ratio 19.1 (10-20); Bilirubin,Total 1.4 mg/dl (0.2-1.0); Calcium 8.9 mg/dl (8.6-10.3); Creatinine Clr Calc Pharmacy 37.6 ml/min; Est GFR (African American) 45.6 ml/min; Est GFR (Non-African American) 39.3 ml/min; Potassium 3.6 mmol/L (3.5-5.1); Total Protein 5.1 gm/dl (6.0-8.3)
[2024-06-06 16:53] LABS: Troponin I High Sensitivity 2392.7 pg/ml (0-20)
[2024-06-06 16:56] LABS: ANTI-Xa, UFH(UnfractionatedHep 0.53 IU/ml (0.3-0.7); INR 1.1 (0.9-1.1); Partial Thromboplastin Time 27 Seconds (21-31); Prothrombin Time 11.4 Seconds (9.0-12.0)
[2024-06-06 17:04] LABS: Hemoglobin 12.1 g/dl (14.0-18.0); Mean Corpuscular Hemoglobin 29.3 pg (25.0-34.0); Mean Corpuscular Hgb Conc 33.3 g/dL (32.0-36.0); Mean Platelet Volume 11.5 fL (9.4-12.4); Platelet Count 191 K/uL (130-400); RDW Standard Deviation 44.9 fL (36.4-46.3); Red Blood Count 4.09 M/uL (4.70-6.10); White Blood Count 15.77 K/ul (4.8-10.8)
--- NOTE | 2024-06-06 17:15 | Communication Note ---
Date of Service: June 06, 2024 Reviewed today's afternoon labs Metabolic acidosis improved but has VIKRAM and Cr increased to 1.5 - continue holding ARB. Has diet order will hold on further IV fluids right now since appears euvolemic and has edema, small pleural effusions, cardiomyopathy AM BMP High bilirubin resolving Xa still therapeutic was on apixaban Cleared for Diet by ST Reviewed recs from Dr. Kunz -likely demand ischemia -limited Echo tomorrow, reassess stability of pericardial effusion -hold anticoagulation
--- NOTE | 2024-06-06 20:22 | Communication Note ---
Date of Service: June 06, 2024 Cleared for diet by so resumed oral metoprolol, statin, ASA
[2024-06-07 02:24] LABS: A calco-baum cmplx NotReported Not Detected (NotDetected); Bact fragilis Not Reported Not Detected (NotDetected); Blood Culture Id Panel See PCR Comment (NotDetected); C auris Not Reported Not Detected (NotDetected); Calbicans Not Reported Not Detected (NotDetected); Candida glabrata Not Reported Not Detected (NotDetected); Candida krusei Not Reported Not Detected (NotDetected); Cneoformans/gatti Not Reported Not Detected (NotDetected); Cparapsilosis Not Reported Not Detected (NotDetected); E cloacae compx Not Reported Not Detected (NotDetected); Efaecalis Not Reported Not Detected (NotDetected); Efaecium Not Reported Not Detected (NotDetected); Enterobacterales Not Reported Not Detected (NotDetected); Escherichia coli Not Reported Not Detected (NotDetected); H influenzae Not Reported Not Detected (NotDetected); K aerogenes Not Reported Not Detected (NotDetected); Koxytoca Not Reported Not Detected (NotDetected); Kpneumoniae grp Not Reported Not Detected (NotDetected); Lmonocyt Not Reported Not Detected (NotDetected); N meningitidis Not Reported Not Detected (NotDetected); P aeruginosa Not Reported Not Detected (NotDetected); Proteus spp Not Reported Not Detected (NotDetected); Salmonella spp Not Reported Not Detected (NotDetected); Staph lugdunensis Not Reported Not Detected (NotDetected); Staph spp. Not Reported DETECTED (NotDetected); Staphaureus Not Reported Not Detected (NotDetected); Staphepi Not Reported Not Detected (NotDetected); Stenmaltophilia Not Reported Not Detected (NotDetected); Strep agal(GrpB) Not Reported Not Detected (NotDetected); Strep pneum Not Reported Not Detected (NotDetected); Strep pyog (GrpA) Not Reported Not Detected (NotDetected); Strep spp Not Reported Not Detected (NotDetected)
[2024-06-07 03:18] LABS: Staphylococcus spp. DETECTED (NotDetected)
--- NOTE | 2024-06-07 06:15 | Electrocardiogram Report ---
Test Reason : Blood Pressure : */* mmHG Vent. Rate : 147 BPM Atrial Rate : * BPM P-R Int : * ms QRS Dur : 88 ms QT Int : 334 ms P-R-T Axes : * 6 144 degrees QTcB Int : 522 ms Poor data quality, interpretation may be adversely affected Atrial fibrillation with rapid ventricular response with premature ventricular or aberrantly conducte d complexes Septal infarct , age undetermined Nonspecific ST and T wave abnormality Abnormal ECG When compared with ECG of 28-Apr-2024 10:38, Vent. rate has increased by 66 bpm Criteria for Inferior infarct are no longer Present ST now depressed in Anterior leads Nonspecific T wave abnormality no longer evident in Anterior leads Confirmed by Moy Aguillon ([id number]) on 06/07/2024 6:15:30 AM Referred By: REFERRED SELF Confirmed By: Moy Aguillon
[2024-06-07 06:42] LABS: Hematocrit (blood only) 32.4 % (42.0-52.0); Hemoglobin 11.4 g/dl (14.0-18.0); Mean Corpuscular Hemoglobin 30.2 pg (25.0-34.0); Mean Corpuscular Hgb Conc 35.2 g/dL (32.0-36.0); Mean Corpuscular Volume 85.9 fL (80.0-100.0); Mean Platelet Volume 11.8 fL (9.4-12.4); Platelet Count 193 K/uL (130-400); RDW Coefficient of Variation 14.2 % (11.5-14.5); RDW Standard Deviation 44.1 fL (36.4-46.3); Red Blood Count 3.77 M/uL (4.70-6.10); White Blood Count 17.63 K/ul (4.8-10.8)
[2024-06-07 07:08] LABS: Albumin Level 2.9 gm/dl (3.4-5.0); BUN Creatinine Ratio 25.8 (10-20); Calcium 8.7 mg/dl (8.6-10.3); Chol HDL Ratio 3.5 (0-5); Creatinine Clr Calc Pharmacy 36.1 ml/min; Est GFR (African American) 43.6 ml/min; Est GFR (Non-African American) 37.6 ml/min; Phosphorus 2.7 mg/dl (2.5-4.9); Potassium 3.3 mmol/L (3.5-5.1)
[2024-06-07 07:16] LABS: Troponin I High Sensitivity 2792.5 pg/ml (0-20)
[2024-06-07] MEDS: ATORVASTATIN 20 MG TAB PO SCH (08:06)
--- NOTE | 2024-06-07 08:39 | XCELERA ---
[id number] \\[facility]\ISCV_PDF_[email or web address]\[id number]
[2024-06-07] MEDS ORDERED: ASPIRIN 300 MG SUPP PR SCH (09:00)
[2024-06-07] MEDS: POTASSIUM CHLORIDE CRTAB 20 MEQ TABCR PO STA (09:24)
--- NOTE | 2024-06-07 11:47 | Hospitalist Progress Note ---
Date of Service June 07, 2024 Assessment & Plan (1) Atrial fibrillation with rapid ventricular response: Plan: improved continue metoprolol tartrate BID Eliquis on hold due to new pericardial effusion but the effusion is stable hopefully can resume Eliquis tomorrow (2) Acute non-ST elevation myocardial infarction (NSTEMI): Plan: seen by Dr Kunz from [facility] Cardiology felt to have myocardia demand ischemia / type 2 SC -- NOT an ACS or type 1 SC peak troponin 3322 is on aspirin and metoprolol statin has been resumed echo findings noted -- EF 45-50%, base to mid inferior, inferolateral, and lateral moderate hypokinesis which is new since last study 07/2022. small pericardial effusion without tamponade (3) Sepsis: Plan: 2nd to pneumonia? 2nd to right groin cellulitis? other? cxr today without discrete pneumonia but certainly the zosyn will cover such if cellulitis of right groin zosyn will cover; add doxy for MRSA coverage; this will also cover atypicals if any pneumonia is process lyme testing negative blood cx's from admission + for GPC (staph) repeat blood cx's obtained today cont zosyn/doxy (4) Acute metabolic encephalopathy: Plan: 2nd to sepsis? 2nd to hypercapnia? head injury with concussion? combination of factors? MRI Brain negative for acute stroke mild hypercapnia noted on VBG today -- BIPAP at HS/naps (5) Acute pericardial effusion: Plan: small repeat echo stable size, no tamponade (6) DM type 2 (diabetes mellitus, type 2): Plan: Hba1c 6.5% in late April 2024 change regular diet to DM diet loose novolog coverage BSGs ac/hs (7) Positive blood culture: Plan: GPC (staph species) uncertain if contaminant vs truly pathogenic will obtain repeat blood cx's today hold off on IV vanco/dapto for now zosyn will cover most staph strains (8) Hypercapnia: Plan: order BIPAP for HS use & naps was having severe snoring during the stay today (9) CAD (coronary artery disease): Plan: h/o LAD stent see #2 above re: NSTEMI cont asa cont metoprolol cont statin (10) Cellulitis: Plan: right groin localized trauma from his fall also likely contributing +/- tinea or diego? cont IV abx cont ketoconazole cream (11) Chronic systolic CHF (congestive heart failure): Plan: mild systolic dysfunction EF 45-50% 2nd to ischemic cardiomyopathy compensated on exam today or even mildly volume contracted giving 500cc total of NS today re-eval tomorrow continue beta karla Plan PT/OT as tolerated Admission and Anticipated Discharge Date Admission Date: June 06, 2024 Subjective tele overnight - a.fib patient sleeping/snoring upon arrival awakens to his name being called somewhat difficult to understand his speech but he reports he is "doing ok" denies pain in any location despite his recent fall denies headache denies pain in his arms or legs denies abd pain denies chest pain admits to some cough but denies dyspnea per staff eating fair taking some liquids Review of Systems Review of Systems: gen - fatigue cv - no chest pain; has chronic edema of legs pulm - no significant sputum production GI - no nausea or emesis Physical Exam Physical Exam: gen - laying in bed; initially sleeping, but easily awakens mouth - MM dry neck - no JVD heart - irregularly irregular, s1 s2, no murmur lungs - rales L base only, no increased work of breathing abd - soft NT ND BS+ ext - lymphedema of feet b/l, mild edema of shins; pulses 2+ b/l skin - ecchymoses right shoulder region, right jaw, left arm; extensive ecchymoses right groin - uncertain if cellulitis vs traumatic vs tinea vs combination of factors vs other Results & Data Results & Data Vital Signs (Past 12 Hours) Vital Signs Temp Pulse Pulse Pulse Resp BP Pulse Ox 06/07/24 11:43 36.3 C L 97 H 18 154/101 H 96 06/07/24 07:39 36.9 C 94 H 18 144/84 H 94 06/07/24 07:25 91 H 06/07/24 07:25 06/07/24 03:17 36.7 C 93 H 20 118/77 96 06/07/24 02:17 97 H O2 Del Method 06/07/24 11:43 Room Air 06/07/24 07:39 Room Air 06/07/24 07:25 06/07/24 07:25 Room Air 06/07/24 03:17 Room Air 06/07/24 02:17 Laboratory Results Laboratory Results - last 24 hr 06/05/24 06/06/24 06/07/24 23:21 15:59 00:31 WBC 15.77 H RBC 4.09 L Hgb 12.1 L D Hct 36.0 L MCV 88.0 MCH 29.3 MCHC 33.3 RDW Std Deviation 44.9 RDW Coeff of Macho 14.0 Plt Count 191 MPV 11.5 PT 11.4 INR 1.1 APTT 27 PTT Ratio 1.0 Heparin Anti-Xa, Unfract 0.53 Sodium 141 Potassium 3.6 Chloride 107 Carbon Dioxide 27 Anion Gap 7 BUN 30 H Creatinine 1.57 H D Est Cr Clr Drug Dosing 37.6 Est GFR ( Amer) 45.6 Est GFR (Non-Af Amer) 39.3 BUN/Creatinine Ratio 19.1 Glucose 217 H Calcium 8.9 Phosphorus Magnesium Total Bilirubin 1.4 H AST 29 ALT 27 Alkaline Phosphatase 81 Total Creatine Kinase Troponin I High Sens 2392.7 H* D 3062.8 H* D Total Protein 5.1 L D Albumin 3.1 L Globulin 2.0 L Albumin/Globulin Ratio 1.6 Triglycerides Cholesterol LDL Cholesterol, Calc VLDL Cholesterol, Calc HDL Cholesterol Cholesterol/HDL Ratio Procalcitonin 0.19 Staphylococcus sp PCR DETECTED A Bld Cult ID Panel PCR See PCR Comment 06/07/24 05:56 WBC 17.63 H RBC 3.77 L Hgb 11.4 L Hct 32.4 L MCV 85.9 MCH 30.2 MCHC 35.2 RDW Std Deviation 44.1 RDW Coeff of Macho 14.2 Plt Count 193 MPV 11.8 PT INR APTT PTT Ratio Heparin Anti-Xa, Unfract Sodium 141 Potassium 3.3 L Chloride 106 Carbon Dioxide 27 Anion Gap 8 BUN 42 H Creatinine 1.63 H Est Cr Clr Drug Dosing 36.1 Est GFR ( Amer) 43.6 Est GFR (Non-Af Amer) 37.6 BUN/Creatinine Ratio 25.8 H Glucose 185 H Calcium 8.7 Phosphorus 2.7 Magnesium 2.0 Total Bilirubin AST ALT Alkaline Phosphatase Total Creatine Kinase 115 Troponin I High Sens 2792.5 H* Total Protein Albumin 2.9 L Globulin Albumin/Globulin Ratio Triglycerides 67 Cholesterol 114 LDL Cholesterol, Calc 68 VLDL Cholesterol, Calc 13 HDL Cholesterol 33 Cholesterol/HDL Ratio 3.5 Procalcitonin 0.18 Staphylococcus sp PCR Bld Cult ID Panel PCR PG Care Time/CCT Total # of Minutes Spent Total Time Spent with Patient: Total time spent is greater than 50% in coordination of care (as documented) at patient's floor/unit and/or counseling patient: Coding Level of Care Code 11481 SUB INP/OBS CARE 3/50MIN Diagnoses Atrial fibrillation with rapid ventricular response I48.91 Acute non-ST elevation myocardial infarction (NSTEMI) I21.4 Sepsis A41.9 Acute metabolic encephalopathy G93.41 Acute pericardial effusion I30.9 DM type 2 (diabetes mellitus, type 2) E11.9 Positive blood culture R78.81 Hypercapnia R06.89 CAD (coronary artery disease) I25.10 Cellulitis L03.90 Chronic systolic CHF (congestive heart failure) I50.22
[2024-06-07 13:09] LABS: Base Excess VBG 0.4 mEq/L; HCO3 VBG 28 mmol/L; Oxygen Saturation VBG < 60.0 %; PCO2 VBG 55 mmHg (38-50); PO2 VBG 24 mmHg; pH VBG 7.31 (7.36-7.41)
[2024-06-07] MEDS: SODIUM CHLORIDE 0.9% 500 ML IV SCH (13:28)
--- NOTE | 2024-06-07 14:59 | XRay Report ---
SINGLE VIEW CHEST CLINICAL HISTORY: Pleural effusions FINDINGS: An AP, portable, upright chest radiograph is compared to chest x-ray and chest CT dated 05/16. The heart is enlarged noting atherosclerotic calcification of the thoracic aorta. There are l eft larger than right pleural effusions with dependent atelectasis. The pulmonary vasculature is nonc ongested. Chronic interstitial thickening is similar to previous. No pneumothorax is seen. The skelet al structures are osteopenic. The bony thorax is grossly intact. A large peripherally calcified struc ture in the liver is partially imaged. IMPRESSION: 1. Cardiomegaly without radiographic evidence of congestive failure. 2. Left larger than right pleural effusions with dependent atelectasis. ACT 112: Negative or not required by law. Electronically signed by: Mitch Manjarrez M.D. 06/07/2024 2:57 PM
[2024-06-07] MEDS: DOXYCYCLINE HYCLATE 100 MG in DEXTROSE 5% MINI-B 100 ML IV SCH (15:04)
[2024-06-07] MEDS ORDERED: ACETAMINOPHEN 500 MG TAB PO PRN (19:01)
[2024-06-07] MEDS ORDERED: DEXTROSE 50% 50 ML SYRINGE IV PRN (19:15)
[2024-06-07] MEDS ORDERED: CARBOHYDRATES FOR HYPOGLYCEMIA PO PRN (19:15)
[2024-06-07] MEDS ORDERED: GLUCOSE 40% GEL 15 GM TUBE PO PRN (19:15)
[2024-06-07] MEDS ORDERED: GLUCAGON FOR INJ 1 MG VIAL IM PRN (19:15)
[2024-06-07] MEDS ORDERED: GLUCOSE 10 TAB/TUBE PO PRN (19:15)
[2024-06-07] MEDS: INSULIN ASPART PER UNIT CHARGE SC SCH (21:48)
[2024-06-07] MEDS: METOPROLOL TARTRATE 25 MG TAB PO SCH (21:50)
[2024-06-08 06:41] LABS: Basophils # (auto) 0.02 K/uL (0.00-0.20); Basophils % (auto) 0.2 %; Eosinophils # (auto) 0.18 K/uL (0.00-0.50); Eosinophils % (auto) 1.6 %; Hematocrit (blood only) 31.9 % (42.0-52.0); Hemoglobin 11.1 g/dl (14.0-18.0); Immature Granulocytes # (auto) 0.08 K/uL (0.01-0.20); Immature Granulocytes % (auto) 0.7 %; Lymphocytes # (auto) 0.96 K/uL (1.20-3.40); Lymphocytes % (auto) 8.3 %; Mean Corpuscular Hemoglobin 30.2 pg (25.0-34.0); Mean Corpuscular Hgb Conc 34.8 g/dL (32.0-36.0); Mean Corpuscular Volume 86.9 fL (80.0-100.0); Mean Platelet Volume 11.7 fL (9.4-12.4); Monocytes # (auto) 1.72 K/uL (0.11-0.59); Monocytes % (auto) 14.9 %; Neutrophils # (auto) 8.61 K/uL (1.40-6.50); Neutrophils % (auto) 74.3 %; Platelet Count 209 K/uL (130-400); RDW Coefficient of Variation 14.5 % (11.5-14.5); RDW Standard Deviation 46.5 fL (36.4-46.3); Red Blood Count 3.67 M/uL (4.70-6.10); White Blood Count 11.57 K/ul (4.8-10.8)
[2024-06-08 07:08] LABS: Albumin Level 2.8 gm/dl (3.4-5.0); BUN Creatinine Ratio 28.5 (10-20); Calcium 8.8 mg/dl (8.6-10.3); Creatinine Clr Calc Pharmacy 38.2 ml/min; Est GFR (African American) 45.2 ml/min; Phosphorus 3.1 mg/dl (2.5-4.9); Potassium 3.4 mmol/L (3.5-5.1)
[2024-06-08] MEDS: POTASSIUM CHLORIDE CRTAB 20 MEQ TABCR PO STA (09:21)
--- NOTE | 2024-06-08 19:43 | Hospitalist Progress Note ---
Date of Service June 08, 2024 Assessment & Plan (1) Atrial fibrillation with rapid ventricular response: Plan: improved/resolved RVR continue metoprolol tartrate BID at higher dose of 75mg BID Eliquis has been on hold due to new pericardial effusion but the effusion is stable on repeat echo per cardiology can resume Eliquis will do so tomorrow AM when Eliquis is resumed will stop aspirin (2) Acute non-ST elevation myocardial infarction (NSTEMI): Plan: seen by Dr Kunz from [facility] Cardiology felt to have myocardia demand ischemia / type 2 LA -- NOT an ACS or type 1 LA peak troponin 3322 is on aspirin and metoprolol statin has been resumed echo findings noted -- EF 45-50%, base to mid inferior, inferolateral, and lateral moderate hypokinesis which is new since last study 07/2022. small pericardial effusion without tamponade stop aspirin tomorrow am resume Eliquis tomorrow AM Cr is >1.5 and age is >85 thus use Eliquis 2.5mg BID; can resume 5mg BID if creatinine normalizes (3) Sepsis: Plan: 2nd to pneumonia? 2nd to right groin cellulitis? combination? lyme testing negative blood cx's from admission + for coag neg staph -- likely contaminant repeat blood cx's remain negative will stop zosyn; change to omnicef 300mg BID x 5 days - will cover possible pneumonia and/or cellulitis can change IV doxycycline to PO doxy (4) Acute metabolic encephalopathy: Plan: 2nd to sepsis? 2nd to hypercapnia? head injury with concussion? combination of factors? MRI Brain negative for acute stroke mild hypercapnia noted on VBG -- BIPAP at HS/naps IMPROVING mentation (5) Acute pericardial effusion: Plan: small repeat echo stable size, no tamponade (6) DM type 2 (diabetes mellitus, type 2): Plan: Hba1c 6.5% in late April 2024 DM diet loose novolog coverage BSGs ac/hs (7) Positive blood culture: Plan: coag neg staph likely contaminant repeat blood cx's are negative (8) Hypercapnia: Plan: order BIPAP for HS use & naps significant snoring noted while he sleeps (9) CAD (coronary artery disease): Plan: h/o LAD stent see #2 above re: NSTEMI cont asa but change back to Eliquis tomorrow cont metoprolol cont statin (10) Cellulitis: Plan: right groin localized trauma from his fall also likely contributing +/- tinea or diego? cont abx cont ketoconazole cream (11) Chronic systolic CHF (congestive heart failure): Plan: mild systolic dysfunction EF 45-50% 2nd to ischemic cardiomyopathy compensated continue beta karla Plan low potassium - K-dur 40meq po x 1 repeat BMP am PT/OT as tolerated needs rehab significant other updated at bedside today Admission and Anticipated Discharge Date Admission Date: June 06, 2024 Subjective tele overnight - a.fib, rates <100 patient more awake/alert today but remains confused was asking about "people not here," the basement, etc. he does know he is at "[facility]," however, and knows it is 2023 pt's significant other was at bedside during the visit we discussed rehab post-discharge pt denies any headache thinks he hit his head/neck on the bathtub at home denies pain any other location pt's significant other reports that he has had rashes in his right groin for some time eating well Review of Systems Review of Systems: CV - no chest pain pulm - no dyspnea at rest; some cough GI - no abd pain; stool ? Physical Exam Physical Exam: gen - laying in bed; much more awake/alert today; speech more clear, less garbled mouth - MM moist today neck - no JVD heart - irregularly irregular, s1 s2, no murmur, rate <100 lungs - rales R base only, no increased work of breathing, no wheezes abd - soft NT ND BS+ ext - 1+ lymphedema of feet b/l, less edema of shins; pulses 2+ b/l skin - ecchymoses right shoulder region, right jaw, left arm; ecchymoses right groin improved psych - a/o x 3 today but confused at times Results & Data Results & Data Vital Signs (Past 12 Hours) Vital Signs Temp Pulse Pulse Resp BP Pulse Ox O2 Del Method 06/08/24 15:33 36.4 C L 76 20 153/83 H 97 Room Air 06/08/24 15:14 83 06/08/24 11:45 36.7 C 85 18 158/95 H 96 Room Air 06/08/24 10:58 Room Air 06/08/24 08:09 36.8 C 96 H 20 166/93 H 95 Room Air Laboratory Results Laboratory Results - last 24 hr 06/07/24 06/08/24 06/08/24 20:06 05:52 07:56 WBC 11.57 H RBC 3.67 L Hgb 11.1 L Hct 31.9 L MCV 86.9 MCH 30.2 MCHC 34.8 RDW Std Deviation 46.5 H RDW Coeff of Macho 14.5 Plt Count 209 MPV 11.7 Immature Gran % (Auto) 0.7 Neut % (Auto) 74.3 Lymph % (Auto) 8.3 [place] % (Auto) 14.9 Eos % (Auto) 1.6 Baso % (Auto) 0.2 Neut # (Auto) 8.61 H Lymph # (Auto) 0.96 L [place] # (Auto) 1.72 H Eos # (Auto) 0.18 Baso # (Auto) 0.02 Immature Gran # (Auto) 0.08 Sodium 140 Potassium 3.4 L Chloride 107 Carbon Dioxide 28 Anion Gap 5 BUN 45 H Creatinine 1.58 H Est Cr Clr Drug Dosing 38.2 Est GFR ( Amer) 45.2 Est GFR (Non-Af Amer) 39.0 BUN/Creatinine Ratio 28.5 H Glucose 148 H POC Glucose 148 H 134 H Calcium 8.8 Phosphorus 3.1 Albumin 2.8 L 06/08/24 06/08/24 11:22 16:30 WBC RBC Hgb Hct MCV MCH MCHC RDW Std Deviation RDW Coeff of Macho Plt Count MPV Immature Gran % (Auto) Neut % (Auto) Lymph % (Auto) [place] % (Auto) Eos % (Auto) Baso % (Auto) Neut # (Auto) Lymph # (Auto) [place] # (Auto) Eos # (Auto) Baso # (Auto) Immature Gran # (Auto) Sodium Potassium Chloride Carbon Dioxide Anion Gap BUN Creatinine Est Cr Clr Drug Dosing Est GFR ( Amer) Est GFR (Non-Af Amer) BUN/Creatinine Ratio Glucose POC Glucose 187 H 143 H Calcium Phosphorus Albumin PG Care Time/CCT Total # of Minutes Spent Total Time Spent with Patient: Total time spent is greater than 50% in coordination of care (as documented) at patient's floor/unit and/or counseling patient: Coding Level of Care Code 81864 SUB INP/OBS CARE 3/50MIN Diagnoses Atrial fibrillation with rapid ventricular response I48.91 Acute non-ST elevation myocardial infarction (NSTEMI) I21.4 Sepsis A41.9 Acute metabolic encephalopathy G93.41 Acute pericardial effusion I30.9 DM type 2 (diabetes mellitus, type 2) E11.9 Positive blood culture R78.81 Hypercapnia R06.89 CAD (coronary artery disease) I25.10 Cellulitis L03.90 Chronic systolic CHF (congestive heart failure) I50.22
--- NOTE | 2024-06-08 20:24 | Cardiology Progress Note ---
Date of Service June 08, 2024 Assessment & Plan (1) Fall: Plan: 2. Persistent atrial fibrillation with RVR 3. Small pericardial effusionno signs of tamponade 4. Elevated troponinsuspect demand 5. History of CAD post remote LAD stent 6. Hypertension 7. Aspiration pneumoniaon antibiotics 8. Gait instability/repeated falls 9. Prior CVA 10. Type II DM 11. Groin rash 12. Bilateral moderate carotid artery disease 13. VIKRAM Stable from a cardiac standpoint. Remains chest pain-free. Troponin downtrending Persistent AF well rate controlled. Pericardial effusion stable to improved on repeat echo. Continue rate control with metoprolol 75 mg twice daily Continue current aspirin, statin Continue to hold telmisartan From a pericardial effusion standpoint okay to resume anticoagulation. When restart anticoagulation would stop aspirin. Repeat echo in 1 to 2 weeks. Admission and Anticipated Discharge Date Admission Date: June 06, 2024 Subjective Seen earlier this afternoon. His friend Carol at bedside. Patient denies chest pain, shortness of breath. Most concerned about having bowel movement and lying in 1 [address] for too long. Telemetry reviewedremains in rate controlled AF Review of Systems Review of Systems: All systems reviewed & are unremarkable except as noted in HPI & below Physical Exam Physical Exam: General: Comfortable, conversant HEENT: Sclerae anicteric Lungs: Clear anteriorly Cardiac: Irregular irregular, no murmurs Vascular: 2+ radial, diminished DP pulses bilaterally Abdomen: Soft, nontender Extremities: Well perfused, 1+ left greater than right lower extremity edema Skin: Bruising over right chin, right shoulder/chest. Erythematous rash over right groin. Muller in place Psych: Alert oriented, normal affect and mood Results & Data Vital Signs (Past 12 Hours) Vital Signs Temp Pulse Pulse Resp BP Pulse Ox O2 Del Method 06/08/24 19:40 97.2 F L 88 18 144/96 H 95 Room Air 06/08/24 15:33 97.5 F L 76 20 153/83 H 97 Room Air 06/08/24 15:14 83 06/08/24 11:45 98.1 F 85 18 158/95 H 96 Room Air 06/08/24 10:58 Room Air PG Care Time/CCT Total # of Minutes Spent Total Time Spent with Patient: Total time spent is greater than 50% in coordination of care (as documented) at patient's floor/unit and/or counseling patient: Coding Level of Care Code 99995 SUB INP/OBS CARE MIN Diagnoses Fall W19.XXXA Encounter type: initial encounter (1) Fall Encounter type: initial encounter Qualified Code(s): W19.XXXA - Unspecified fall, initial encounter
[2024-06-08] MEDS: CEFDINIR 300 MG CAP PO SCH (20:47)
[2024-06-09] MEDS: APIXABAN 2.5 MG TAB PO SCH (08:03)
[2024-06-09] MEDS: DOXYCYCLINE HYCLATE 100 MG CAP PO SCH (08:04)
[2024-06-09 08:41] LABS: Calcium 9.2 mg/dl (8.6-10.3); Potassium 3.8 mmol/L (3.5-5.1)
[2024-06-09 08:47] LABS: BUN Creatinine Ratio 31.1 (10-20); Creatinine Clr Calc Pharmacy 44.7 ml/min; Est GFR (African American) 54.7 ml/min; Est GFR (Non-African American) 47.2 ml/min
[2024-06-09] MEDS ORDERED: TELMISARTAN 40 MG TAB PO SCH (09:00)
[2024-06-09] MEDS: LOSARTAN POTASSIUM 50 MG TAB PO SCH ×2 (10:51→22:29)
--- NOTE | 2024-06-09 21:05 | Hospitalist Progress Note ---
Date of Service June 09, 2024 Assessment & Plan (1) Atrial fibrillation with rapid ventricular response: Plan: resolved continue metoprolol tartrate 75mg BID Eliquis resumed as pericardial effusion is stable on serial echos (2) Acute non-ST elevation myocardial infarction (NSTEMI): Plan: seen by Dr Kunz from [facility] Cardiology felt to have myocardia demand ischemia / type 2 MS -- NOT an ACS or type 1 MS peak troponin 3322 is on aspirin and metoprolol statin has been resumed echo findings noted -- EF 45-50%, base to mid inferior, inferolateral, and lateral moderate hypokinesis which is new since last study 07/2022. small pericardial effusion without tamponade stop aspirin resume Eliquis today (3) Sepsis: Plan: 2nd to pneumonia? 2nd to right groin cellulitis? combination? lyme testing negative blood cx's from admission + for coag neg staph -- likely contaminant repeat blood cx's remain negative s/p zosyn x 2-3 days -- now off changed today to omnicef 300mg BID x 5 days - will cover possible pneumonia and/or cellulitis cont PO doxy (4) Acute metabolic encephalopathy: Plan: 2nd to sepsis? 2nd to hypercapnia? head injury with concussion? suspect combination of factors MRI Brain negative for acute stroke mild hypercapnia noted on VBG IMPROVING mentation (5) Acute pericardial effusion: Plan: small repeat echo stable size, no tamponade (6) DM type 2 (diabetes mellitus, type 2): Plan: Hba1c 6.5% in late April 2024 DM diet loose novolog coverage BSGs ac/hs (7) Positive blood culture: Plan: coag neg staph likely contaminant repeat blood cx's are negative (8) Hypercapnia: Plan: order BIPAP for HS use & naps significant snoring noted while he sleeps (9) CAD (coronary artery disease): Plan: h/o LAD stent see #2 above re: NSTEMI cont metoprolol cont statin (10) Cellulitis: Plan: right groin localized trauma from his fall also likely contributing +/- tinea or diego? cont abx cont ketoconazole cream (11) Chronic systolic CHF (congestive heart failure): Plan: mild systolic dysfunction EF 45-50% 2nd to ischemic cardiomyopathy compensated continue beta karla (12) Hypertension: Plan: poorly controlled pt reports his BPs are typically 160s or higher at home adjust ARB cont metoprolol consider adding amlodipine if needed Plan PT/OT as tolerated needs rehab - auth for [facility] needed significant other updated at bedside today once again Admission and Anticipated Discharge Date Admission Date: June 06, 2024 Subjective tele - a.fib, rates controlled no new complaints eating his meal during the visit his significant other of 25 years is pleased with his progress mental status is clearing - much better than at admission still a little fuzzy here/there but much better pt himself denies any new complaints Review of Systems Review of Systems: cv - no chest pain pulm - no dyspnea; just mild cough skin - right groin skin rash improved GI - no pain or N/V gen - eating well Physical Exam Physical Exam: gen - laying in bed; awake/alert; NAD mouth - MMM neck - no JVD heart - irregularly irregular, s1 s2, no murmur, rate <100 lungs - minimal rales R base only, no increased work of breathing, no wheezes abd - soft NT ND BS+ ext - 1+ lymphedema of feet b/l, trace edema of shins; pulses 2+ b/l skin - ecchymoses right shoulder region, right jaw, left arm; ecchymoses right groin improved; tinea or candidal rash R groin improved psych - a/o x 3 today Results & Data Results & Data Vital Signs (Past 12 Hours) Vital Signs Temp Pulse Pulse Resp BP Pulse Ox O2 Del Method 06/09/24 19:28 36.4 C L 80 18 172/94 H 95 Room Air 06/09/24 15:46 36.6 C 70 18 173/103 H 96 Room Air 06/09/24 15:24 70 06/09/24 14:39 Room Air 06/09/24 13:40 74 06/09/24 11:45 36.5 C 72 18 174/98 H 97 Room Air Laboratory Results Laboratory Results - last 24 hr 06/09/24 06/09/24 06/09/24 05:50 07:27 11:28 Sodium 140 Potassium 3.8 Chloride 107 Carbon Dioxide 26 Anion Gap 7 BUN 42 H Creatinine 1.35 Est Cr Clr Drug Dosing 44.7 Est GFR ( Amer) 54.7 Est GFR (Non-Af Amer) 47.2 BUN/Creatinine Ratio 31.1 H Glucose 122 H POC Glucose 121 H 213 H Calcium 9.2 06/09/24 06/09/24 16:20 20:02 Sodium Potassium Chloride Carbon Dioxide Anion Gap BUN Creatinine Est Cr Clr Drug Dosing Est GFR ( Amer) Est GFR (Non-Af Amer) BUN/Creatinine Ratio Glucose POC Glucose 117 H 131 H Calcium PG Care Time/CCT Total # of Minutes Spent Total Time Spent with Patient: Total time spent is greater than 50% in coordination of care (as documented) at patient's floor/unit and/or counseling patient: Coding Level of Care Code 50465 SUB INP/OBS CARE 2/35MIN Diagnoses Atrial fibrillation with rapid ventricular response I48.91 Acute non-ST elevation myocardial infarction (NSTEMI) I21.4 Sepsis A41.9 Acute metabolic encephalopathy G93.41 Acute pericardial effusion I30.9 DM type 2 (diabetes mellitus, type 2) E11.9 Positive blood culture R78.81 Hypercapnia R06.89 CAD (coronary artery disease) I25.10 Cellulitis L03.90 Chronic systolic CHF (congestive heart failure) I50.22 Hypertension I10
[2024-06-10] MEDS: LORazepam 2 MG/1 ML VIAL IV STA (00:29)
[2024-06-10] MEDS: APIXABAN 5 MG TABLET PO SCH (08:21)
[2024-06-10 09:43] LABS: BUN Creatinine Ratio 23.9 (10-20); Calcium 9.3 mg/dl (8.6-10.3); Creatinine Clr Calc Pharmacy 43.2 ml/min; Est GFR (African American) 53.3 ml/min; Potassium 3.8 mmol/L (3.5-5.1)
--- NOTE | 2024-06-10 10:49 | Hospitalist Progress Note ---
Date of Service June 10, 2024 Assessment & Plan (1) Atrial fibrillation with rapid ventricular response: Plan: resolved continue metoprolol tartrate 75mg BID continue Eliquis 5mg BID (2) Acute non-ST elevation myocardial infarction (NSTEMI): Plan: [place] Kunz [place] [facility] [place] felt to have myocardia demand ischemia / type 2 [place] -- NOT an ACS or type 1 [place] peak troponin 3322 cont statin cont Eliquis cont metoprolol echo findings noted -- EF 45-50%, base to mid inferior, inferolateral, and lateral moderate hypokinesis which is new since last study 07/2022. small pericardial effusion without tamponade (3) Sepsis: Plan: 2nd to pneumonia? 2nd to right groin cellulitis? combination? lyme testing negative blood cx's from admission + for coag neg staph -- likely contaminant repeat blood cx's remain negative s/p zosyn x 2-3 days -- now off changed yesterday to omnicef 300mg BID x 5 days - will cover possible pneumonia and/or cellulitis cont PO doxy (4) Acute metabolic encephalopathy: Plan: 2nd to sepsis, hypercapnia, hospital psychosis, etc. all in setting of head injury with suspected concussion MRI Brain negative for acute stroke mentation had been improving then had ing overnight ativan made such worse - just made him more lethargic no further ativan tonight give zyprexa 2.5mg HS (5) Acute pericardial effusion: Plan: small repeat echo stable size, no tamponade (6) DM type 2 (diabetes mellitus, type 2): Plan: Hba1c 6.5% in late April 2024 DM diet loose novolog coverage BSGs ac/hs (7) Positive blood culture: Plan: coag neg staph likely contaminant repeat blood cx's are negative (8) Hypercapnia: Plan: order BIPAP for HS use & naps but pt declining it significant snoring noted while he sleeps (9) CAD (coronary artery disease): Plan: h/o LAD stent see #2 above re: NSTEMI cont metoprolol cont statin (10) Cellulitis: Plan: right groin localized trauma from his fall also likely contributing +/- tinea or diego? cont abx cont ketoconazole cream (11) Chronic systolic CHF (congestive heart failure): Plan: mild systolic dysfunction EF 45-50% 2nd to ischemic cardiomyopathy compensated continue beta karla (12) Hypertension: Plan: poorly controlled pt reports his BPs are typically 160s or higher at home cont BID ARB cont metoprolol start amlodipine 5mg daily Plan PT/OT as tolerated needs rehab - auth for [facility] needed significant other updated at bedside yesterday Admission and Anticipated Discharge Date Admission Date: June 06, 2024 Subjective very confused overnight received ativan for confusion & ing apparently was combative with staff & trying to kick them this am ate no breakfast awake during rounds but confused unable to provide any meaningful history today did deny pain in any location Review of Systems Review of Systems: Unobtainable due to cognitive status Physical Exam Physical Exam: gen - laying in bed; awake/alert but confused; making crude jokes mouth - MM dry today neck - no JVD heart - irregularly irregular, s1 s2, no murmur, rate <100 lungs - CTA b/l abd - soft NT ND BS+ ext - mild edema feet b/l, trace edema of shins; pulses 2+ b/l skin - ecchymoses right shoulder region, right lower chest, right jaw, left arm; ecchymoses right groin improved; tinea or candidal rash R groin again improved psych - confused Results & Data Results & Data Vital Signs (Past 12 Hours) Vital Signs Temp Pulse Pulse Resp BP Pulse Ox O2 Del Method 06/10/24 09:29 83 06/10/24 07:21 36.1 C L 81 17 199/129 H 93 Room Air 06/10/24 02:57 36.6 C 84 18 182/130 H 90 Room Air 06/09/24 23:26 36.8 C 90 18 184/119 H 94 Room Air Laboratory Results Laboratory Results - last 24 hr 06/09/24 06/09/24 06/09/24 11:28 16:20 20:02 Sodium Potassium Chloride Carbon Dioxide Anion Gap BUN Creatinine Est Cr Clr Drug Dosing Est GFR ( Amer) Est GFR (Non-Af Amer) BUN/Creatinine Ratio Glucose POC Glucose 213 H 117 H 131 H Calcium 06/10/24 06/10/24 07:27 08:33 Sodium 142 Potassium 3.8 Chloride 107 Carbon Dioxide 30 Anion Gap 5 BUN 33 H Creatinine 1.38 Est Cr Clr Drug Dosing 43.2 Est GFR ( Amer) 53.3 Est GFR (Non-Af Amer) 46.0 BUN/Creatinine Ratio 23.9 H Glucose 115 H POC Glucose 103 H Calcium 9.3 PG Care Time/CCT Total # of Minutes Spent Total Time Spent with Patient: Total time spent is greater than 50% in coordination of care (as documented) at patient's floor/unit and/or counseling patient: Coding Level of Care Code 19066 SUB INP/OBS CARE 2/35MIN Diagnoses Atrial fibrillation with rapid ventricular response I48.91 Acute non-ST elevation myocardial infarction (NSTEMI) I21.4 Sepsis A41.9 Acute metabolic encephalopathy G93.41 Acute pericardial effusion I30.9 DM type 2 (diabetes mellitus, type 2) E11.9 Positive blood culture R78.81 Hypercapnia R06.89 CAD (coronary artery disease) I25.10 Cellulitis L03.90 Chronic systolic CHF (congestive heart failure) I50.22 Hypertension I10
[2024-06-10] MEDS: amLODIPine BESYLATE 5 MG TAB PO ONE (12:28)
[2024-06-10] MEDS: OLANZAPINE 2.5 MG TAB PO SCH (20:35)
[2024-06-11 06:42] LABS: Hematocrit (blood only) 41.1 % (42.0-52.0); Hemoglobin 13.3 g/dl (14.0-18.0); Mean Corpuscular Hemoglobin 29.2 pg (25.0-34.0); Mean Corpuscular Hgb Conc 32.4 g/dL (32.0-36.0); Mean Corpuscular Volume 90.3 fL (80.0-100.0); Mean Platelet Volume 10.5 fL (9.4-12.4); Platelet Count 267 K/uL (130-400); RDW Coefficient of Variation 14.2 % (11.5-14.5); RDW Standard Deviation 46.4 fL (36.4-46.3); Red Blood Count 4.55 M/uL (4.70-6.10); White Blood Count 9.26 K/ul (4.8-10.8)
[2024-06-11 07:04] LABS: BUN Creatinine Ratio 27.1 (10-20); Calcium 9.1 mg/dl (8.6-10.3); Creatinine Clr Calc Pharmacy 55.7 ml/min; Est GFR (African American) 72.5 ml/min; Est GFR (Non-African American) 62.5 ml/min; Potassium 3.8 mmol/L (3.5-5.1)
[2024-06-11] MEDS: amLODIPine BESYLATE 5 MG TAB PO SCH (09:27)
[2024-06-11] MEDS: amLODIPine BESYLATE 5 MG TAB PO ONE (09:43)
--- NOTE | 2024-06-11 11:48 | Cardiology Progress Note ---
Date of Service June 11, 2024 Assessment & Plan (1) Chronic systolic CHF (congestive heart failure): Plan: will cont to follow mild LV dysfunction on ECHO 06/07 EF 45-50%; ? new lateral WMA on this ECHO. Consider further outpatient work up IF he develops symptoms To follow up with Dr. Don (2) CAD (coronary artery disease): (3) Atrial fibrillation with rapid ventricular response: Plan: chronic persistant (4) Acute non-ST elevation myocardial infarction (NSTEMI): (5) Fall: Plan Please call if further issues while in the hospital. Admission and Anticipated Discharge Date Admission Date: June 06, 2024 Subjective Covering for [facility]. Pt normally sees Dr. Don. Without issues overnight. He is planing to go to [facility] post dc for therapy. denies CP or SOB Review of Systems Review of Systems: All systems reviewed & are unremarkable except as noted in HPI & below Physical Exam Physical Exam: alert talkative Respiratory: normal respiratory effort, lungs clear to auscultation Cardiovascular: irregular Afib no new murmurs ext +1 mild edema Results & Data Vital Signs (Past 12 Hours) Vital Signs Temp Pulse Pulse Resp BP Pulse Ox O2 Del Method 06/11/24 11:34 36.5 C 80 18 148/91 H 95 Room Air 06/11/24 09:12 92 H 06/11/24 08:45 Room Air 06/11/24 07:43 36.3 C L 86 17 185/112 H 97 Room Air 06/11/24 04:39 36.3 C L 73 18 197/102 H 94 Room Air 06/11/24 00:03 36.6 C 64 16 203/121 H 96 Room Air 06/11/24 00:00 85 Laboratory Results Abnormal lab results 06/10/24 06/10/24 06/11/24 Range/Units 16:33 20:29 06:21 RBC 4.55 L (4.70-6.10) M/uL Hgb 13.3 L (14.0-18.0) g/dl Hct 41.1 L (42.0-52.0) % RDW Std Deviation 46.4 H (36.4-46.3) fL BUN 29 H (6-23) mg/dl BUN/Creatinine Ratio 27.1 H (10-20) POC Glucose 103 H 115 H (70-99) mg/dl 06/11/24 Range/Units 11:36 RBC (4.70-6.10) M/uL Hgb (14.0-18.0) g/dl Hct (42.0-52.0) % RDW Std Deviation (36.4-46.3) fL BUN (6-23) mg/dl BUN/Creatinine Ratio (10-20) POC Glucose 152 H (70-99) mg/dl (5) Fall Encounter type: initial encounter Qualified Code(s): W19.XXXA - Unspecified fall, initial encounter
--- NOTE | 2024-06-11 19:00 | Hospitalist Progress Note ---
Date of Service June 11, 2024 Assessment & Plan (1) Atrial fibrillation with rapid ventricular response: Plan: RVR resolved rates controlled continue metoprolol tartrate 75mg BID continue Eliquis 5mg BID (2) Acute non-ST elevation myocardial infarction (NSTEMI): Plan: seen by Dr Kunz from [facility] [place] Card[facility] felt to have myocardia demand ischemia / type 2 [place] -- NOT an ACS or type 1 [place] peak troponin 3322 cont statin cont Eliquis cont metoprolol echo findings noted -- EF 45-50%, base to mid inferior, inferolateral, and lateral moderate hypokinesis which is new since last study 07/2022. small pericardial effusion without tamponade (3) Sepsis: Plan: 2nd to pneumonia +/- right groin cellulitis? lyme testing negative blood cx's from admission + for coag neg staph -- likely contaminant repeat blood cx's still negative s/p zosyn x 2-3 days -- now off changed to omnicef 300mg BID x 5 days - today is day #3 of such; this will cover possible pneumonia and/or cellulitis cont PO doxy (4) Acute metabolic encephalopathy: Plan: 2nd to sepsis, hypercapnia, hospital psychosis, etc. all in setting of head injury with suspected concussion MRI Brain negative for acute stroke mentation had been improving then had sundowning overnight 2 nights ago ativan made such worse - just made him more lethargic no further ativan ativan added to "allergy" list cont zyprexa 2.5mg HS (5) Acute pericardial effusion: Plan: small repeat echo stable size, no tamponade (6) DM type 2 (diabetes mellitus, type 2): Plan: Hba1c 6.5% in late April 2024 DM diet loose novolog coverage BSGs ac/hs (7) Positive blood culture: Plan: coag neg staph likely contaminant repeat blood cx's are negative (8) Hypercapnia: Plan: order BIPAP for HS use & naps but pt declining it significant snoring noted while he sleeps (9) CAD (coronary artery disease): Plan: h/o LAD stent see #2 above re: NSTEMI cont metoprolol cont statin (10) Cellulitis: Plan: right groin localized trauma from his fall also likely contributing +/- tinea or diego? cont abx cont ketoconazole cream (11) Chronic systolic CHF (congestive heart failure): Plan: mild systolic dysfunction EF 45-50% 2nd to ischemic cardiomyopathy compensated continue beta karla (12) Hypertension: Plan: poorly controlled pt reports his BPs are typically 160s or higher at home cont BID ARB cont metoprolol cont amlodipine 5mg daily but likely to need 5mg BID Plan PT/OT as tolerated needs rehab - auth for [facility] needed significant other updated by phone this evening Admission and Anticipated Discharge Date Admission Date: June 06, 2024 Subjective had better night last pm was up some of the night but no agitation during the day today he has been calm no agitation during rounds he knew it was 2023, knew he was at the hospital denied any complaints Review of Systems Review of Systems: CV - no chest pain pulm - no dyspnea GI - no abd pain Physical Exam Physical Exam: gen - sitting in chair, NAD, looks well, more oriented today, calm mouth - MMM neck - no JVD heart - irregularly irregular, s1 s2, no murmur, rate <100 lungs - CTA b/l abd - soft NT ND BS+ ext - mild edema feet b/l, about 1+, extending onto the shins b/l; pulses 2+ b/l Results & Data Results & Data Vital Signs (Past 12 Hours) Vital Signs Temp Pulse Pulse Resp BP BP Pulse Ox 06/11/24 15:58 36.5 C 83 17 151/87 H 97 06/11/24 14:40 72 06/11/24 11:34 36.5 C 80 18 148/91 H 95 06/11/24 09:12 92 H 06/11/24 08:45 06/11/24 07:43 36.3 C L 86 17 185/112 H 97 O2 Del Method 06/11/24 15:58 Room Air 06/11/24 14:40 06/11/24 11:34 Room Air 06/11/24 09:12 06/11/24 08:45 Room Air 06/11/24 07:43 Room Air Laboratory Results Laboratory Results - last 24 hr 06/10/24 06/11/24 06/11/24 20:29 06:21 07:42 WBC 9.26 RBC 4.55 L Hgb 13.3 L Hct 41.1 L MCV 90.3 MCH 29.2 MCHC 32.4 RDW Std Deviation 46.4 H RDW Coeff of Macho 14.2 Plt Count 267 MPV 10.5 Sodium 142 Potassium 3.8 Chloride 105 Carbon Dioxide 31 Anion Gap 6 BUN 29 H Creatinine 1.07 D Est Cr Clr Drug Dosing 55.7 Est GFR ( Amer) 72.5 Est GFR (Non-Af Amer) 62.5 BUN/Creatinine Ratio 27.1 H Glucose 99 POC Glucose 115 H 93 Calcium 9.1 06/11/24 06/11/24 11:36 16:22 WBC RBC Hgb Hct MCV MCH MCHC RDW Std Deviation RDW Coeff of Macho Plt Count MPV Sodium Potassium Chloride Carbon Dioxide Anion Gap BUN Creatinine Est Cr Clr Drug Dosing Est GFR ( Amer) Est GFR (Non-Af Amer) BUN/Creatinine Ratio Glucose POC Glucose 152 H 170 H Calcium PG Care Time/CCT Total # of Minutes Spent Total Time Spent with Patient: Total time spent is greater than 50% in coordination of care (as documented) at patient's floor/unit and/or counseling patient: Coding Level of Care Code 40078 SUB INP/OBS CARE 2/35MIN Diagnoses Atrial fibrillation with rapid ventricular response I48.91 Acute non-ST elevation myocardial infarction (NSTEMI) I21.4 Sepsis A41.9 Acute metabolic encephalopathy G93.41 Acute pericardial effusion I30.9 DM type 2 (diabetes mellitus, type 2) E11.9 Positive blood culture R78.81 Hypercapnia R06.89 CAD (coronary artery disease) I25.10 Cellulitis L03.90 Chronic systolic CHF (congestive heart failure) I50.22 Hypertension I10
[2024-06-12] MEDS: OLANZAPINE 2.5 MG TAB PO STA (03:21)
[2024-06-12] MEDS ORDERED: amLODIPine BESYLATE 5 MG TAB PO SCH (09:00)
[2024-06-12] MEDS: amLODIPine BESYLATE 5 MG TAB PO SCH (09:36)
--- NOTE | 2024-06-12 11:30 | Hospitalist Progress Note ---
Date of Service June 12, 2024 Assessment & Plan (1) Atrial fibrillation with rapid ventricular response: Plan: RVR resolved rates controlled nicely with metoprolol tartrate 75mg BID continue Eliquis 5mg BID (2) Acute non-ST elevation myocardial infarction (NSTEMI): Plan: seen by Dr Kunz from [facility] [place] felt to have myocardia demand ischemia / type 2 [place] -- NOT an ACS or type 1 [place] peak troponin 3322 cont statin cont Eliquis cont metoprolol echo findings noted -- EF 45-50%, base to mid inferior, inferolateral, and lateral moderate hypokinesis which is new since last study 07/2022. small pericardial effusion without tamponade (3) Sepsis: Plan: 2nd to pneumonia +/- right groin cellulitis? sepsis resolved last wbc count wnl lyme testing negative blood cx's from admission + for coag neg staph -- likely contaminant repeat blood cx's negative s/p zosyn x 2-3 days early in the stay -- changed to omnicef 300mg BID x 5 days - today is day #4 of such; this will cover possible pneumonia and/or cellulitis cont PO doxy - day #4 of such as well (4) Acute metabolic encephalopathy: Plan: 2nd to sepsis, hypercapnia, hospital psychosis, etc. all in setting of head injury with suspected concussion MRI Brain negative for acute stroke continues to despite scheduled zyprexa 2.5mg at HS and he required an additional 2.5mg of zyprexa last pm as well will simply make the zyprexa 5mg HS add melatonin 3mg HS ativan made such worse - just made him more lethargic no further ativan ativan added to "allergy" list (5) Acute pericardial effusion: Plan: small repeat echo stable size, no tamponade (6) DM type 2 (diabetes mellitus, type 2): Plan: Hba1c 6.5% in late April 2024 DM diet loose novolog coverage BSGs ac/hs control has been very good while here (7) Positive blood culture: Plan: coag neg staph likely contaminant repeat blood cx's are negative (8) Hypercapnia: Plan: order BIPAP for HS use & naps but pt declining it significant snoring noted while he sleeps (9) CAD (coronary artery disease): Plan: h/o LAD stent see #2 above re: NSTEMI cont metoprolol cont statin (10) Cellulitis: Plan: right groin localized trauma from his fall also likely contributing +/- tinea or diego? cont abx cont ketoconazole cream (11) Chronic systolic CHF (congestive heart failure): Plan: mild systolic dysfunction EF 45-50% 2nd to ischemic cardiomyopathy compensated continue beta karla (12) Hypertension: Plan: poorly controlled pt reports his BPs are typically 160s or higher at home cont BID ARB cont metoprolol cont amlodipine - increase to 5mg BID Plan PT/OT as tolerated [facility] other has been updated several times this week pt's room on [address] is not conducive to good night-time sleep - very little sunlight, etc. tele stable for 3-4+ days ok to d/c tele - move to med/surg Admission and Anticipated Discharge Date Admission Date: June 06, 2024 Subjective tele overnight - a.fib, rates <100 had sundowning again overnight requiring his regularly scheduled 2.5mg of zyprexa and an additional 2.5mg of zyprexa he was up out of bed walking around the bed overnight per his roommate during rounds he was sitting in the chair knew he was at [facility]" knew it was 2023 said "when am I leaving?" denied any complaints eating fair-good Review of Systems Review of Systems: cv - no chest pain pulm - no dyspnea GI - no abd pain or N/V ; +multiple stools Physical Exam Physical Exam: gen - sitting in chair, NAD, looks tired/groggy but awake/alert & can follow commands mouth - MMM neck - no JVD heart - irregularly irregular, s1 s2, no murmur, normal rate lungs - CTA b/l abd - soft NT ND BS+ ext - mild edema feet b/l - baseline; about 1+ edema, extending onto the shins b/l; pulses 2+ b/l psych - oriented x 3 skin - tinea cruris vs diego + cellulitis right groin - resolving nicely Results & Data Results & Data Vital Signs (Past 12 Hours) Vital Signs Temp Pulse Pulse Resp BP Pulse Ox O2 Del Method 06/12/24 09:15 Room Air 06/12/24 08:12 36.4 C L 81 18 167/101 H 92 Room Air 06/12/24 06:57 77 06/12/24 04:22 36.3 C L 82 17 156/97 H 95 Room Air 06/11/24 23:57 36.6 C 86 17 155/91 H 96 Room Air Laboratory Results Laboratory Results - last 24 hr 06/11/24 06/11/24 06/11/24 11:36 16:22 20:39 POC Glucose 152 H 170 H 169 H 06/12/24 06/12/24 07:41 11:26 POC Glucose 132 H 178 H PG Care Time/CCT Total # of Minutes Spent Total Time Spent with Patient: Total time spent is greater than 50% in coordination of care (as documented) at patient's floor/unit and/or counseling patient: Coding Level of Care Code 69320 SUB INP/OBS CARE 2/35MIN Diagnoses Atrial fibrillation with rapid ventricular response I48.91 Acute non-ST elevation myocardial infarction (NSTEMI) I21.4 Sepsis A41.9 Acute metabolic encephalopathy G93.41 Acute pericardial effusion I30.9 DM type 2 (diabetes mellitus, type 2) E11.9 Positive blood culture R78.81 Hypercapnia R06.89 CAD (coronary artery disease) I25.10 Cellulitis L03.90 Chronic systolic CHF (congestive heart failure) I50.22 Hypertension I10
[2024-06-12] MEDS: MELATONIN 3 MG TAB PO SCH (20:54)
[2024-06-12] MEDS: OLANZapine 5 MG TABLET PO SCH (20:54)
--- NOTE | 2024-06-13 06:31 | Communication Note ---
Date of Service: June 13, 2024 Mina veronica called at 0600 for acute change in mental status. Patient was changed and dressed for bed around 9 PM and had been sleeping comfortably since. When he was checked on at 6 AM patient was noted to be minimally responsive to verbal and painful stimuli w/o signs of focal neurologic deficit. Patient was noted to be full code. Patient admitted for A Fib RVR, sepsis, and acute metabolic encephalopathy. Patient is anticoagulated on Eliquis. Vitals revealed hypertension to 170s/90s, HR 60s, normal RR, and unreadable temperature. Glucose 105. Examination revealed heart in irregularly irregular rhythm at rate of 50s-60s. Lungs CTAB. Neuro examination revealed patient unresponsive to voice and minimally responsive to painful stimuli. Pupils minimally responsive to light bilaterally. Reflexes remain intact. No FND appreciated. Decision was made to obtain STAT Non-con CT head due to concern for stroke. Delancey panel ordered to evaluate for additional causes of encephalopathy. Transferred to PCU/tele for ongoing management d/t Full Code status. Resident Activity Tracking Resident Involvement: Resident Care Provided Care Provided: [facility]
[2024-06-13 06:32] LABS: Basophils # (auto) 0.05 K/uL (0.00-0.20); Basophils % (auto) 0.5 %; Eosinophils # (auto) 0.38 K/uL (0.00-0.50); Eosinophils % (auto) 3.9 %; Hematocrit (blood only) 40.1 % (42.0-52.0); Hemoglobin 13.5 g/dl (14.0-18.0); Immature Granulocytes # (auto) 0.24 K/uL (0.01-0.20); Immature Granulocytes % (auto) 2.5 %; Lymphocytes # (auto) 1.61 K/uL (1.20-3.40); Lymphocytes % (auto) 16.5 %; Mean Corpuscular Hemoglobin 29.9 pg (25.0-34.0); Mean Corpuscular Hgb Conc 33.7 g/dL (32.0-36.0); Mean Corpuscular Volume 88.9 fL (80.0-100.0); Mean Platelet Volume 10.5 fL (9.4-12.4); Monocytes # (auto) 1.72 K/uL (0.11-0.59); Monocytes % (auto) 17.7 %; Neutrophils # (auto) 5.74 K/uL (1.40-6.50); Neutrophils % (auto) 58.9 %; Platelet Count 302 K/uL (130-400); RDW Coefficient of Variation 14.6 % (11.5-14.5); RDW Standard Deviation 46.2 fL (36.4-46.3); Red Blood Count 4.51 M/uL (4.70-6.10); White Blood Count 9.74 K/ul (4.8-10.8)
--- NOTE | 2024-06-13 06:47 | CT Scan Report ---
CT head/brain wo con CLINICAL HISTORY: r/o cva/hemorrhage Technique: Contiguous axial CT images of the head were acquired from the base of the skull to the pamela stefany without intravenous contrast administration. Images were viewed in brain, [facility]. Automated dose lowering techniques and/or adjustment according to patient size were utilized for this exam. Comparison: Comparison is made to CT head 06/05/2024 Findings: Areas of decreased attenuation are present in the periventricular and subcortical white matter bilate rally consistent with small vessel ischemic disease. Generalized cerebral atrophy with commensurate e nlargement of the ventricles, sulci, and cisterns is also present. There is no acute intracranial hem orrhage or evidence of acute territorial infarction. No shift of the midline structures, mass effect, or extra-axial abnormalities are shown. Atherosclerotic calcifications are present in the intracran ial segments of the internal carotid arteries. Imaged portions of the paranasal sinuses and mastoid air cells are clear. The orbits appear normal. There are no acute fractures of the calvaria or scalp swelling. Impression: No acute intracranial hemorrhage, no evidence of acute territorial infarction or other acute intracra nial disease process. ACT 112: Negative or not required by law. Electronically signed by: Rc Hill M.D. 06/13/2024 6:45 AM
[2024-06-13 06:54] LABS: BUN Creatinine Ratio 22.9 (10-20); Calcium 9.4 mg/dl (8.6-10.3); Creatinine Clr Calc Pharmacy 45.7 ml/min; Est GFR (African American) 56.7 ml/min; Magnesium 1.8 mg/dl (1.7-2.4); Potassium 3.6 mmol/L (3.5-5.1)
[2024-06-13 06:59] LABS: INR 1.1 (0.9-1.1); Prothrombin Time 11.4 Seconds (9.0-12.0)
--- NOTE | 2024-06-13 11:57 | Magnetic Resonance Report ---
MR brain wo con CLINICAL HISTORY: ongoing delirium, most recent head CT with ?SDH?? TECHNIQUE: Multiplanar and multisequence MR images of the brain were obtained without intravenous con trast. Comparison: Comparison is made to MRI brain 06/06/2024 CT head 03/13/2024 FINDINGS: Tiny focus of restricted diffusion is in the midline posterior left frontal lobe (series 5 image 19). A right parietal focus of restricted diffusion is likely artifactual. Foci of T2 and FLAIR hyperinte nsity are noted in the paraventricular areas consistent with chronic small vessel ischemic disease. E x vacuo ventriculomegaly and sulcal enlargement is noted compatible with diffuse volume loss. No mass es seen. Punctate lacunar infarcts primarily in the left basal ganglia. There is no mass effect or mi dline shift. There is no evidence of acute intraparenchymal hemorrhage. No extra axial fluid collecti ons are seen. The corpus callosum, pituitary gland, and cerebellar tonsils appear grossly unremarkabl e. Flow voids of the major intracranial arterial vessels are identified. The imaged portions of the para nasal sinuses, mastoid air cells, and orbits are unremarkable. 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 No hemorrhagic transformation is seen. No evidence of subdural hemorrhage. ACT 112: Negative or not required by law. Electronically signed by: Rc Hill M.D. 06/13/2024 11:55 AM
--- NOTE | 2024-06-13 13:46 | Hospitalist Progress Note ---
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 suspect the stroke occurred sometime overnight. he has no overt stroke symptoms and went to bed last pm in the usual fashion thus time "zero" is truly uncertain. his lethargy this am leading to "code purple" was likely a combination of medicine effects (zyprexa) and potentially having the stroke event. if the stroke was embolic this is concerning given the fact he is on Eliquis BID (although prior to admission his compliance with such is questionable). I consulted Dr Dumont from neurology for his recommendations regarding this stroke. CTA head/neck done earlier in the admission without ICA stenosis to account for this stroke. Echo w/o source of thrombus. Again he is already on Eliquis for his a.fib. Uncertain if adding aspirin would confer benefit for him from a stroke standpoint (although he does have history of CAD) as radiology is suggesting this stroke may have been due to embolism? Given he is already on Eliquis and echo was clean - source of embolus? Atheroma from aortic arch? other? PT, OT, speech therapy previously have seen Mr Russ this admission. (2) Acute metabolic encephalopathy: Plan: present on admission 2nd to sepsis, hypercapnia, hospital psychosis, etc. all in setting of head injury with suspected concussion initial MRI Brain (06/06) negative for acute stroke has had severe sundowning throughout most of the hospitalization he had been getting scheduled zyprexa 2.5mg at HS but still w/ sundowning increased the zyprexa to 5mg HS and potentially led to severe lethargy (although his acute CVA made have contributed to the lethargy overnight last night) remains on melatonin 3mg HS mental status this am - awake, lethargy resolved, only mild pleasant confusion will re-order zyprexa but make it 2.5mg HS PRN (3) Atrial fibrillation with rapid ventricular response: Plan: RVR resolved rates controlled nicely with metoprolol tartrate 75mg BID continue Eliquis 5mg BID (4) Acute non-ST elevation myocardial infarction (NSTEMI): Plan: seen by Dr Kunz from [facility] Cardiology felt to have myocardia demand ischemia / type 2 IA -- NOT an ACS or type 1 IA peak troponin 3322 cont statin cont Eliquis cont metoprolol add aspirin back especially in light of #1? echo findings noted -- EF 45-50%, base to mid inferior, inferolateral, and lateral moderate hypokinesis which is new since last study 07/2022. small pericardial effusion without tamponade (5) Sepsis: Plan: 2nd to pneumonia +/- right groin cellulitis sepsis resolved last wbc count wnl lyme testing negative blood cx's from admission + for coag neg staph -- likely contaminant repeat blood cx's negative s/p zosyn x 2-3 days early in the stay -- changed to omnicef 300mg BID x 5 days - today is day #5 of such; this will cover possible pneumonia and/or cellulitis cont PO doxy - day #5 of such as well - cont for 7 days then stop (6) Acute pericardial effusion: Plan: small repeat echo stable size, no tamponade (7) DM type 2 (diabetes mellitus, type 2): Plan: Hba1c 6.5% in late April 2024 DM diet loose novolog coverage BSGs ac/hs control has been very good while here (8) Positive blood culture: Plan: coag neg staph likely contaminant repeat blood cx's are negative (9) Hypercapnia: Plan: I had ordered BIPAP for HS use & naps but pt had been declining it and thus it was removed from his room significant snoring noted while he sleeps outpatient sleep study advised (10) CAD (coronary artery disease): Plan: h/o LAD stent see #2 above re: NSTEMI cont metoprolol cont statin add back low-dose aspirin? (11) Cellulitis: Plan: right groin localized trauma from his fall also likely contributing +/- tinea or diego? MUCH improved finish abx cont ketoconazole cream (12) Chronic systolic CHF (congestive heart failure): Plan: mild systolic dysfunction EF 45-50% 2nd to ischemic cardiomyopathy remains compensated continue beta karla (13) Hypertension: Plan: poorly controlled earlier in the hospital stay pt reports his BPs are typically 160s or higher at home cont losartan BID cont metoprolol BID cont amlodipine 5mg BID Plan cont PT/OT as tolerated needs rehab - auth for [facility] needed his significant other has been updated several times this week including today at bedside await neurology consultation tomorrow Admission and Anticipated Discharge Date Admission Date: June 06, 2024 Subjective patient had been transferred to med/surg last pm by report went to bed and slept soundly all night last pm without owning about 0600 a code purple was called as he could not be aroused/awakened BSG was wnl at the time of the event vitals were stable CT head with ?SDH transferred back to PCU by the time he was transferred back his mental status was at baseline and he was awake/alert MRI brain obtained showing a tiny left sided frontal lobe CVA despite the tiny CVA he denies any difficulty speaking, swallowing, or loss of motor or sensory function on the right side his significant other Igna was present at bedside since arrival to the PCU unit his a.fib rates have been <100 Review of Systems Review of Systems: CV - no chest pain pulm - no dyspnea GI - no abd pain or N/V Physical Exam Physical Exam: gen - sitting in bed, NAD, awake, alert, oriented to person/place/year face - no facial droop mouth - MMM neck - no JVD heart - irregularly irregular, s1 s2, no murmur, normal rate lungs - CTA b/l abd - soft NT ND BS+ ext - mild edema feet b/l - baseline (1+ edema); pulses 2+ b/l psych - oriented x 3 skin - tinea cruris vs diego + cellulitis right groin - resolving neuro - strength 5/5 x 4 exts, no pronator drift Results & Data Results & Data Vital Signs (Past 12 Hours) Vital Signs Temp Pulse Resp BP Pulse Ox O2 Del Method 06/13/24 11:55 36.3 C L 72 20 170/89 H 97 Room Air 06/13/24 08:00 Room Air 06/13/24 07:46 36.3 C L 75 18 158/98 H 94 Room Air 06/13/24 06:30 Room Air Laboratory Results Laboratory Results - last 24 hr 06/13/24 06/13/24 06/13/24 06:06 06:11 07:37 PT 11.4 INR 1.1 Sodium 143 Potassium 3.6 Chloride 108 H Carbon Dioxide 30 Anion Gap 5 BUN 30 H Creatinine 1.31 Est Cr Clr Drug Dosing 45.7 Est GFR ( Amer) 56.7 Est GFR (Non-Af Amer) 49.0 BUN/Creatinine Ratio 22.9 H Glucose 114 H POC Glucose 105 H Calcium 9.4 Magnesium 1.8 06/13/24 06/13/24 11:50 16:22 PT INR Sodium Potassium Chloride Carbon Dioxide Anion Gap BUN Creatinine Est Cr Clr Drug Dosing Est GFR ( Amer) Est GFR (Non-Af Amer) BUN/Creatinine Ratio Glucose POC Glucose 149 H 129 H Calcium Magnesium Diagnostic Findings Head CT 06/13/24 06:04 CT head/brain wo con CLINICAL HISTORY: r/o cva/hemorrhage Technique: Contiguous axial CT images of the head were acquired from the base of the skull to the vertex without intravenous contrast administration. Images were viewed in brain, subdural and bone windows. Automated dose lowering techniques and/or adjustment according to patient size were utilized for this exam. Comparison: Comparison is made to CT head 06/05/2024 Findings: Areas of decreased attenuation are present in the periventricular and subcortical white matter bilaterally consistent with small vessel ischemic disease. Generalized cerebral atrophy with commensurate enlargement of the ventricles, sulci, and cisterns is also present. There is no acute intracranial hemorrhage or evidence of acute territorial infarction. No shift of the midline structures, mass effect, or extra-axial abnormalities are shown. Atherosclerotic calcifications are present in the intracranial segments of the internal carotid arteries. Imaged portions of the paranasal sinuses and mastoid air cells are clear. The orbits appear normal. There are no acute fractures of the calvaria or scalp swelling. Impression: No acute intracranial hemorrhage, no evidence of acute territorial infarction or other acute intracranial disease process. ACT 112: Negative or not required by law. Electronically signed by: Rc Hill M.D. 06/13/2024 6:45 AM Brain MRI 06/13/24 07:37 MR brain wo con CLINICAL HISTORY: ongoing delirium, most recent head CT with ?SDH?? TECHNIQUE: Multiplanar and multisequence MR images of the brain were obtained without intravenous contrast. Comparison: Comparison is made to MRI brain 06/06/2024 CT head 03/13/2024 FINDINGS: Tiny focus of restricted diffusion is in the midline posterior left frontal lobe (series 5 image 19). A right parietal focus of restricted diffusion is likely artifactual. Foci of T2 and FLAIR hyperintensity are noted in the paraventricular areas consistent with chronic small vessel ischemic disease. Ex vacuo ventriculomegaly and sulcal enlargement is noted compatible with diffuse volume loss. No masses seen. Punctate lacunar infarcts primarily in the left basal ganglia. There is no mass effect or midline shift. There is no evidence of acute intraparenchymal hemorrhage. No extra axial fluid collections are seen. The corpus callosum, pituitary gland, and cerebellar tonsils appear grossly unremarkable. Flow voids of the major intracranial arterial vessels are identified. The imaged portions of the paranasal sinuses, mastoid air cells, and orbits are unremarkable. 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 No hemorrhagic transformation is seen. No evidence of subdural hemorrhage. ACT 112: Negative or not required by law. Electronically signed by: Rc Hill M.D. 06/13/2024 11:55 AM PG Care Time/CCT Total # of Minutes Spent Total Time Spent with Patient: Total time spent is greater than 50% in coordination of care (as documented) at patient's floor/unit and/or counseling patient: Coding Level of Care Code 22923 SUB INP/OBS CARE 3/50MIN Diagnoses Stroke I63.9 Acute metabolic encephalopathy G93.41 Atrial fibrillation with rapid ventricular response I48.91 Acute non-ST elevation myocardial infarction (NSTEMI) I21.4 Sepsis A41.9 Acute pericardial effusion I30.9 DM type 2 (diabetes mellitus, type 2) E11.9 Positive blood culture R78.81 Hypercapnia R06.89 CAD (coronary artery disease) I25.10 Cellulitis L03.90 Chronic systolic CHF (congestive heart failure) I50.22 Hypertension I10
[2024-06-13] MEDS ORDERED: OLANZAPINE 2.5 MG TAB PO PRN (19:17)
[2024-06-14 07:39] LABS: BUN Creatinine Ratio 27.5 (10-20); Calcium 9.1 mg/dl (8.6-10.3); Creatinine Clr Calc Pharmacy 43.1 ml/min; Est GFR (African American) 53.3 ml/min; Potassium 3.6 mmol/L (3.5-5.1)
--- NOTE | 2024-06-14 08:18 | Neurology Consultation ---
Date of Consultation June 14, 2024 Assessment & Plan (1) Acute CVA (cerebrovascular accident): (2) Acute metabolic encephalopathy: (3) Hypertension: (4) Persistent atrial fibrillation: (5) Chronic cerebral ischemia: Plan This patient had 2 tiny acute CVAs noted on MRI June 13 (1 on each hemisphere) likely consistent with small emboli. The patient has a history of persistent atrial fibrillation (and other cardiac issues) but also has CT angiography evidence of multiple vessel mild to moderate stenoses particularly intracranially. MRIs show extensive small vessel ischemic changes of an old nature and he has a longstanding history of hypertension, dyslipidemia, and diabetes. He is a former cigarette smoker decades ago. Therefore, he has multiple risk factors for both embolic and ischemic stroke. According to records he is only on apixaban and not an a ntiplatelet medication. The patient had acute confusion consistent with encephalopathy which had multiple factors including sepsis, hypercapnia, and possible closed head trauma with concussion. Certainly, he does not display any postconcussive syndrome symptoms today with no headache, dizziness, or vision issues. There was a question of subdural hematoma on CT June 13 but MRI did not show any evidence of subdural hematoma. Recommendations: 1. Continue apixaban 5 mg twice a day for embolus prevention 2. Consider adding antiplatelet medication for small vessel ischemic disease 3. Lipids have been lowered more than sufficiently. This patient would not be considered a high-dose statin candidate. Otherwise leave at current dose 4. Physical and Occupational Therapy increasing activity as able. 5. Control blood pressure as you are doing Overall, I spent a total of 120 minutes with this case including review of records, review of CT and MRI films, direct evaluation the patient at bedside, and discussion of the case with the patient and RN at bedside, Dr. Moy stearns, and Franca Prasad including differential diagnosis and treatment options. History of Present Illness Reason for Consultation: Patient is an 88-year-old, who was asked to see at the request of Dr. Adhikari, for neurologic evaluation regarding stroke Requesting Physician: Dr. Adhikari Attending Physician: Franca Powers MD History of Present Illness This patient has a history of acute stroke in July 2022. I saw the patient and and felt that the multiple tiny strokes in an almost wedgelike pattern in the left middle cerebral artery branch was likely his ischemic although it could have been embolic (large embolus which broke up immediately and left scattered spots seen on the diffusion imaging). The history was not necessarily compatible with that but it was difficult to tell. The patient did have atrial fibrillation and was put on an anticoagulant. He continued 81 mg aspirin also. This patient has a history of hypertension and dyslipidemia, with mild diabetes. He also has a significant cardiac history besides the atrial fibrillation with rapid ventricular rate, including coronary artery disease post LAD stent and chronic systolic heart failure. Has a history of prostate cancer post radiation. Currently the patient is on apixaban 5 mg twice a day, atorvastatin 20 mg a day, metoprolol but he was not 81 mg aspirin. He does have a history of considerable bruising. Patient apparently fell and was found in the bathroom on the floor on June 05.. He has no recall of the fall and he may have hit his head. He also has gives a history where he might of hit his head with another fall 2 weeks previous. He gives very little details regarding these events. He arrived to the emergency room June 05 at 2122 with a temperature 36.7, pulse 163, respiratory rate 23, blood pressure 209/137 and O2 saturation 95%. He was confused on exam although he was awake and alert. He felt weak all over but did not have any focal neurologic findings. CBC showed an elevated white count and CK was 594. Hemoglobin and hematocrit were unremarkable. CHEM profile was remarkable for glucose of 153 and a mildly elevated BUN. Troponin was 2317. TSH and urinalysis were unremarkable. Total cholesterol was [address] scan of the abdomen and pelvis did not show anything significant. CT scan of the cervical spine showed no fractures. CT scan of the chest showed cardiomegaly and mild bilateral pleural effusions. CT scan of the face showed no fractures. CT scan of the head showed no abnormalities. CT angiography of the head revealed mild posterior cerebral artery stenosis bilaterally. There is also moderate internal carotid artery and vertebral stenosis bilaterally in the intracranial portions of these vessels. CT angiography of the neck showed a severe right external carotid artery stenosis. Echocardiogram revealed an ejection fraction of 45 to 50% with a new lateral wall motion abnormality as well as new small pericardial effusions. There was mild concentric LVH which was stable. MRI of the brain June 06 showed moderate generalized atrophy and significant old small vessel ischemic disease but no evidence of acute stroke. I reviewed these films. The patient was determined to be septic and was put on Zosyn and then Omnicef. He had issues with confusion and sundowning particularly in the evenings but this confusion had cleared over time. At 0600 on June 13 he was found in bed to be minimally responsive. A CT scan of the head was performed that was largely unremarkable. An over read on this film suggested there may have been a 2 mm left paramedian subdural hematoma. I reviewed these films with Dr. Winter and he does not feel there is a subdural hematoma present. The patient had an MRI of the brain June 13 which showed a tiny left frontal acute stroke and a punctate right frontal stroke (both of these high up in the head and very distal/peripheral) I reviewed these films as well with Dr. Winter and there is no evidence of subdural hematoma on MRI. The strokes appear to be likely embolic in nature. The patient was diagnosed with an acute AR (NSTEMI) This morning the patient has no complaint of headache, pain, dizziness, nausea, shortness of breath or feelings of fluttering in his chest. He feels he is weak in his arms and legs in general but has no focal weakness no new numbness and no new vision issues. Allergies Allergy/AdvReac Type Severity Reaction Status Date / Time clopidogrel Allergy Intermediate HIVES Verified 06/06/24 09:17 Iodinated Contrast Media Allergy Intermediate HIVES Verified 06/06/24 09:17 pollen extracts Allergy Mild Wheezing Unverified 06/06/24 09:17 lorazepam AdvReac Intermediate more Verified 06/13/24 19:20 confusion, lethargy [id number] Reductase AdvReac Unknown Unknown Verified 06/06/24 09:17 Inhibitor Home Medications Medication Instructions Recorded Confirmed Type cholecalciferol (vitamin D3) 125 125 mcg PO QPM 10/25/21 06/06/24 History mcg (5,000 unit) tablet (Vitamin D3) vitamin B12 0.5 mg-folic acid 1 mg 1 tab PO DAILY 07/27/22 06/06/24 History tablet metoprolol tartrate 50 mg tablet 50 mg PO BID #180 tabs 07/20/23 06/06/24 Rx sildenafil (pulm.hypertension) 20 20 mg PO ONCE PRN sexual activity 10/14/23 06/06/24 Rx mg tablet #15 tabs telmisartan 80 mg tablet 80 mg PO QAM #90 tabs 12/30/23 06/06/24 Rx vibegron 75 mg tablet (Gemtesa) 75 mg PO DAILY #90 tabs 02/29/24 06/06/24 Rx trospium 20 mg tablet 0 mg PO BID 04/28/24 06/06/24 History apixaban 5 mg tablet (Eliquis) 5 mg PO BID #180 tabs 05/12/24 06/06/24 Rx atorvastatin 20 mg tablet 20 mg PO DAILY #90 tabs 05/12/24 06/06/24 Rx nystatin 100,000 unit/gram topical 1 applic topical BID #30 grams 05/12/24 06/06/24 Rx cream nystatin 100,000 unit/gram topical 1 applic topical BID #60 grams 05/12/24 06/06/24 Rx powder Patient History Medical History Elevated troponin Acute right hemiparesis Elevated troponin Atrial fibrillation, new onset Acute CVA (cerebrovascular accident) History of idiopathic urticaria 3-4 YR AGO, HIVES FOR 1 YR - UNKNOWN ETIOLOGY- NO RE-OCCURENCE Elevated hemoglobin A1c Overactive bladder 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 Prostate cancer DX 2005 - HX RADIATION AND SEED IMPLANT Idiopathic urticaria Surgical History History of left cataract extraction History of colonoscopy History of coronary artery stent placement EARLY History of tonsillectomy History of prostate surgery S/P hernia repair HX MULTIPLE Family History Father Myocardial infarction Diabetes Heart disease Hypertension Mother Pancreatic cancer Sister Poliomyelitis Denies family history of Colon cancer Ovarian cancer Prostate cancer Breast cancer Social History Smoking Status: Unknown if ever smoked Age Started Using Tobacco: 17; Age Quit Using Tobacco: 40; packs per day: 2; Cigarettes Per Day: 3-4 packs/day quit 1975; Second Hand Exposure: No; Do You Dip or Chew Tobacco: No; Tobacco Cessation Education Requested by Patient: No Hx Alcohol Use: No Hx Substance Use: No Preferred Language: Gabonese Communication Ability: Effective Visual Impairment: No Limitations Hearing Ability: Normal 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 Sheets 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 Supervisor Required: No Beliefs That Will Affect Care: None marital status: Single Current Living Situation: Alone current occupational status: retired Other Information That Helps Us Care for You: No Feels Safe at Home: Yes Safety Concerns: Feels Safe At This Time Childhood Exposure to Second-Hand Smoke: Yes Dental Care, Regularly: Yes Physical Activity Frequency: 3-4 Times per Week Seatbelt Use: always Sunscreen Use: No Assistive Devices: Cane and Walker Review of Systems Constitutional: no fever, no fatigue and no weakness Eyes: no diplopia, no eye pain and no worsening vision Ear, Nose, Mouth, Throat: no ear pain, no tinnitus, no hearing loss, no dizziness, no snoring, no hoarseness and no dysphagia Respiratory: no cough and no dyspnea Cardiovascular: no chest pain, no palpitations and no lightheadedness Gastrointestinal: no abdominal pain, no nausea and no vomiting Musculoskeletal: no back pain, no neck pain, no radicular pain, no joint pain and no myalgia Integumentary: no rash and no lesions Neurologic: + generalized weakness; no gait abnormal ity, no localized weakness, no tingling, no numbness, no tremor(s), no abnormal movements, no headache(s), no abnormal speech, no confusion and no memory loss Psychiatric: no depression, no irritability, no anxiety, no difficulty concentrating, no confusion and no hallucinations Endocrine: no fatigue and no flushing Hematologic / Lymphatic: no easy bleeding and no easy bruising Allergy / Immunological: no urticaria and no problem reported Exam (Neuro) Physical Exam: The patient is right-handed. The patient is awake, alert, and attentive. Speech is normal without any aphasia or dysarthria. Occasionally he is a little hesitant and mildly in his speech but I do not believe he had a bee dysarthria. Mentation and thought processes are intact, with good orientation and normal fund of knowledge. He knew his name, where he was, and the exact date. He did not know his age. He was very p leasant and cooperative. Mood and affect are normal and appropriate. Appearance and grooming are normal. Short-term memory for events was poor. However, he had other longer term memory reasonable to conversation. Pupils are 3 mm bilaterally and reactive to light. Extraocular eye muscles are intact without nystagmus. Visual acuity and visual jones seem normal grossly to confrontation. There are no deficits to sensation in the face in all 3 distributions of the fifth cranial nerve bilaterally. Corneal reflexes are positive bilaterally. Facial strength and symmetry was normal bilaterally. Hearing seems intact grossly to voice and finger rub bilaterally. Palate moves well without asymmetry. There is normal sternocleidomastoid and trapezius strength bilaterally. Tongue is midline with good strength bilaterally. Neck has a full range of motion without discomfort. There are no cervical bruits bilaterally. There are no cranial or ocular bruits. Heart is without murmur. There is a regular rhythm and rate. Stance was somewhat poor and that he tended to lean back when unsupported. Although gait was not tested his stance with feet together and eyes open was very wobbly and took an effort of at least 1 to get him to get from sitting to standing. With outstretched arms there is no drift. There are no resting tremors. There was very mild action tremor left greater than right side with finger nose testing. There is no ataxia with finger to nose testing. There is good facility in the hands. No other abnormal involuntary movements are noted. Motor strength is 5/5 diffusely in the arms bilaterally including deltoids, biceps, triceps, brachioradialis, wrist flexors and extensors, galvanometer assembler, and intrinsic hand muscles. Motor strength is 5/5 diffusely in the legs bilaterally including hip flexors, quadriceps, hamstrings, gastrocnemius, tibialis anterior, tibialis posterior, and Peroneii muscles bilaterally. Toe extensors are normal and there is good bulk in the extensor digitorum brevis muscles bilaterally. The limbs have good tone without overt rigidity, although he was some mild rigidity in the last 10 to 15 degrees of extension in each arm. There is no spasticity. There is no atrophy noted in the muscles. Muscle bulk is normal, there is no tenderness to palpation, no myotonia to percussion, and no fasciculations seen. Sensory examination is intact to touch and pin throughout all 4 limbs diffusely Reflexes are 2/4 in the biceps, triceps, and brachioradialis tendons bilaterally. Quadriceps tendons were 1/4 bilaterally. Achilles tendon reflexes were absent bilaterally. Toes are downgoing with plantar stimulation on the left and upgoing with plantar stimulation on the right. There was pitting edema in the lower extremities bilaterally Results & Data Vital Signs (Past 12 Hours) Vital Signs Temp Pulse Pulse Resp BP Pulse Ox O2 Del Method 06/14/24 03:31 36.6 C 65 18 131/75 96 Room Air 06/13/24 22:32 36.6 C 69 18 135/82 96 Room Air 06/13/24 21:55 75 06/13/24 20:30 Room Air PG Care Time/CCT Total # of Minutes Spent Total Time Spent with Patient: Total time spent is greater than 50% in coordination of care (as documented) at patient's floor/unit and/or counseling patient: Coding Level of Care Code 53111 INT INP/OBS CARE 3/75MIN Diagnoses Acute CVA (cerebrovascular accident) I63.9 Acute metabolic encephalopathy G93.41 Hypertension I10 Persistent atrial fibrillation I48.19 Chronic cerebral ischemia I67.82 Time Spent (min) 120
--- NOTE | 2024-06-14 18:06 | Hospitalist Progress Note ---
Date of Service June 14, 2024 Assessment & Plan (1) Stroke: Plan: 88 y/o man admitted with acute encephalopathy and pneumonia, right groin cellulitis Improved then noted to be somnolent/poorly arousable AM of 06/13 (following zyprexa at pm and days of poor sleep). Code stroke called, had repeat brain MRI which showed two tiny acute CVAs new since MRI earlier same admission. Soon after the code stroke he was awake and alert without focal deficits. CTA without LVO, TTE without thrombus. He has extensive cerebrovascular disease on imaging as well as atrial fibrillation. The infarcts appear embolic and he did miss some doses of DOAC last week. He is also at risk for ischemic CVA and may benefit from antiplatelet. Discussed with neurologist Dr. Dumont -continue DOAC, will add ASA 81 mg -continue current statin -continue antihypertensives -PT/OT recommend rehab made referral to [facility] updated his in person 06/14 (2) Acute metabolic encephalopathy: Plan: was severe, present on admission and had severe sundowning throughout most of the hospitalization 2nd to sepsis, hypercapnia initial MRI Brain (06/06) negative for acute stroke There was a question of subdural hematoma on CT June 13 but MRI did not show any evidence of subdural hematoma. continue melatonin and zyprexa 2.5 mg HS prn. Was somnolent/lethargic after 5 mg dose. (3) Atrial fibrillation with rapid ventricular response: Plan: RVR resolved rates controlled nicely with metoprolol tartrate 75mg BID continue Eliquis 5mg BID (4) Acute non-ST elevation myocardial infarction (NSTEMI): Plan: [place] Kun[place] [facility] [place] felt to have myocardia demand ischemia / type 2 AL -- NOT an ACS or type 1 AL peak troponin 3322 cont statin cont Eliquis cont metoprolol ASA echo findings noted -- EF 45-50%, base to mid inferior, inferolateral, and lateral moderate hypokinesis which is new since last study 07/2022. small pericardial effusion without tamponade (5) Sepsis: Plan: 2nd to pneumonia +/- right groin cellulitis sepsis resolved last wbc count wnl lyme testing negative blood cx's from admission + for coag neg staph -- likely contaminant repeat blood cx's negative s/p zosyn x 2-3 days early in the stay -- changed to omnicef 300mg BID x 5 days - today is day #6 cont PO doxy - day #6/7 (6) Acute pericardial effusion: Plan: small repeat echo stable size, no tamponade (7) DM type 2 (diabetes mellitus, type 2): Plan: Hba1c 6.5% in late April 2024 DM diet loose novolog coverage BSGs ac/hs control has been very good while here (8) Positive blood culture: Plan: coag neg staph likely contaminant repeat blood cx's are negative (9) Hypercapnia: Plan: declining BIPAP for HS use & naps significant snoring noted while he sleeps outpatient sleep study advised (10) CAD (coronary artery disease): Plan: h/o LAD stent see #2 above re: NSTEMI cont metoprolol cont statin ASA (11) Cellulitis: Plan: right groin localized trauma from his fall also likely contributing +/- tinea or diego? MUCH improved finish abx cont ketoconazole cream (12) Chronic systolic CHF (congestive heart failure): Plan: mild systolic dysfunction EF 45-50% 2nd to ischemic cardiomyopathy remains compensated continue beta karla (13) Hypertension: Plan: poorly controlled earlier in the hospital stay pt reports his BPs are typically 160s or higher at home cont losartan BID cont metoprolol BID cont amlodipine 5mg BID Plan DVT ppx - on DOAC Dispo - referral made to [facility]mission and Anticipated Discharge Date Admission Date: June 06, 2024 Subjective Doing much better today, awake alert and not confused Able to report back to me fairly accurately what the neurologist told him this AM No headache, no focal neuro symptoms Physical Exam 2 Physical Exam: PHYSICAL EXAMINATION Last 24h vital signs reviewed, see documentation in flowsheet General: awake and alert, much improved since last week HEENT:marci sclerae anicteric, moist MM Lungs: CTAB nonabored, no wheezing. Heart: irregularly irregular, no murmurs. No JVD Abdomen: Soft, nontender, nondistended. Bowel sounds present. R groin erythema fading Extremities: Warm, dry, well-perfused. 2+ lower extremity edema unchanged Neuro: AOx4, speech intact, face symmetric, marci, manager vehicle equal, moves UE and LE equally Results & Data Results & Data Vital Signs (Past 12 Hours) Vital Signs Temp Pulse Pulse Resp BP Pulse Ox O2 Del Method 06/14/24 16:22 36.5 C 75 20 124/72 98 Room Air 06/14/24 12:23 36.6 C 82 18 155/84 H 96 Room Air 06/14/24 11:39 84 06/14/24 09:39 Room Air 06/14/24 08:31 36.5 C 87 18 162/81 H 96 Room Air Laboratory Results 06/13/24 06:11 06/14/24 06:49 PG Care Time/CCT Total # of Minutes Spent Total Time Spent with Patient: Total time spent is greater than 50% in coordination of care (as documented) at patient's floor/unit and/or counseling patient: Coding Level of Care Code 06592 SUB INP/OBS CARE 2/35MIN Diagnoses Stroke I63.9 Acute metabolic encephalopathy G93.41 Atrial fibrillation with rapid ventricular response I48.91 Acute non-ST elevation myocardial infarction (NSTEMI) I21.4 Sepsis A41.9 Acute pericardial effusion I30.9 DM type 2 (diabetes mellitus, type 2) E11.9 Positive blood culture R78.81 Hypercapnia R06.89 CAD (coronary artery disease) I25.10 Cellulitis L03.90 Chronic systolic CHF (congestive heart failure) I50.22 Hypertension I10
--- NOTE | 2024-06-15 16:41 | Hospitalist Progress Note ---
Date of Service June 15, 2024 Assessment & Plan (1) Stroke: Plan: 88 y/o man admitted with acute encephalopathy and pneumonia, right groin cellulitis Improved with IV fluids and antibiotics then noted to be somnolent/poorly arousable AM of 06/13 (following zyprexa at pm and days of poor sleep). Code stroke called, had repeat brain MRI which showed two tiny acute CVAs new since MRI earlier same admission. Soon after the code stroke he was awake and alert without focal deficits. CTA without LVO, TTE without thrombus. He has extensive cerebrovascular disease on imaging as well as atrial fibrillation. The infarcts appear embolic and he did miss some doses of DOAC last week. He is also at risk for ischemic CVA and may benefit from antiplatelet. -neurologist consulted -continue DOAC, added ASA 81 mg -continue current statin -continue antihypertensives -PT/OT recommend rehab made referral to [facility] - pending insurance auth -I updated his in person 06/14 (2) Acute metabolic encephalopathy: Plan: was severe, present on admission and had severe sundowning throughout most of the hospitalization 2nd to sepsis, hypercapnia initial MRI Brain (06/06) negative for acute stroke There was a question of subdural hematoma on CT June 13 but MRI did not show any evidence of subdural hematoma. continue melatonin and zyprexa 2.5 mg HS prn. Was somnolent/lethargic after 5 mg dose. definitely improved/resolving (3) Atrial fibrillation with rapid ventricular response: Plan: RVR resolved rates controlled nicely with metoprolol tartrate 75mg BID continue Eliquis 5mg BID (4) Acute non-ST elevation myocardial infarction (NSTEMI): Plan: seen by Dr Kunz from [facility] [place] Cardiology felt to have myocardia demand ischemia / type 2 RI -- NOT an ACS or type 1 RI peak troponin 3322 cont statin cont Eliquis cont metoprolol ASA echo findings noted -- EF 45-50%, base to mid inferior, inferolateral, and lateral moderate hypokinesis which is new since last study 07/2022. small pericardial effusion without tamponade (5) Sepsis: Plan: 2nd to pneumonia +/- right groin cellulitis sepsis resolved last wbc count wnl lyme testing negative blood cx's from admission + for coag neg staph -- likely contaminant repeat blood cx's negative completed 7 days doxycycline and pip-tazo/omnicef (6) Acute pericardial effusion: Plan: small repeat echo stable size, no tamponade (7) DM type 2 (diabetes mellitus, type 2): Plan: Hba1c 6.5% in late April 2024 DM diet loose novolog coverage BSGs ac/hs control has been very good while here (8) Positive blood culture: Plan: coag neg staph likely contaminant repeat blood cx's are negative (9) Hypercapnia: Plan: declining BIPAP for HS use & naps significant snoring noted while he sleeps outpatient sleep study advised (10) CAD (coronary artery disease): Plan: h/o LAD stent see #2 above re: NSTEMI cont metoprolol cont statin ASA (11) Cellulitis: Plan: right groin localized trauma from his fall also likely contributing +/- tinea or diego MUCH improved finished antibiotics cont ketoconazole cream (12) Chronic systolic CHF (congestive heart failure): Plan: mild systolic dysfunction EF 45-50% 2nd to ischemic cardiomyopathy has some leg edema but remains compensated continue beta karla (13) Hypertension: Plan: poorly controlled earlier in the hospital stay pt reports his BPs are typically 160s or higher at home cont losartan BID cont metoprolol BID cont amlodipine 5mg BID Plan CKD-3 stable DVT ppx - on DOAC Dispo - referral made to [facility] Admission and Anticipated Discharge Date Admission Date: June 06, 2024 Subjective Ziggy is doing ok. Had a good night no confusion or agitation Sitting up in chair. R groin redness much improved No cough chest or abdominal pain Physical Exam 2 Physical Exam: PHYSICAL EXAMINATION Last 24h vital signs reviewed, see documentation in flowsheet General:sitting up in chair at window HEENT:marci sclerae anicteric, moist MM Lungs: clear bilaterally, no rrw Heart: irregularly irregular, no murmurs. No JVD Abdomen: Soft, nontender, nondistended. Bowel sounds present. R groin erythema fading/darkening. no induration Extremities: Warm, dry, well-perfused. 2+ lower extremity edema unchanged Neuro: AOx4, speech intact, face symmetric, marci, dining room manager equal, moves UE and LE equally Results & Data Results & Data Vital Signs (Past 12 Hours) Vital Signs Temp Pulse Pulse Resp BP Pulse Ox O2 Del Method 06/15/24 15:17 36.6 C 65 16 149/85 H 97 Room Air 06/15/24 10:58 67 06/15/24 10:58 Room Air 06/15/24 10:55 36.4 C L 67 14 107/69 97 Room Air 06/15/24 07:15 36.3 C L 71 18 146/77 H 93 Room Air Laboratory Results 06/13/24 06:11 06/14/24 06:49 PG Care Time/CCT Total # of Minutes Spent Total Time Spent with Patient: Total time spent is greater than 50% in coordination of care (as documented) at patient's floor/unit and/or counseling patient: Coding Level of Care Code 72870 SUB INP/OBS CARE 10/08MIN Diagnoses Stroke I63.9 Acute metabolic encephalopathy G93.41 Atrial fibrillation with rapid ventricular response I48.91 Acute non-ST elevation myocardial infarction (NSTEMI) I21.4 Sepsis A41.9 Acute pericardial effusion I30.9 DM type 2 (diabetes mellitus, type 2) E11.9 Positive blood culture R78.81 Hypercapnia R06.89 CAD (coronary artery disease) I25.10 Cellulitis L03.90 Chronic systolic CHF (congestive heart failure) I50.22 Hypertension I10
[2024-06-15 20:03] VITALS: TEMP 97.7
[2024-06-15 22:36] VITALS: RESP 18
[2024-06-16 07:26] VITALS: O2SAT 97
--- NOTE | 2024-06-16 10:53 | Neurology Progress Note ---
Date of Service June 16, 2024 Assessment & Plan (1) Acute CVA (cerebrovascular accident): (2) Acute metabolic encephalopathy: (3) Hypertension: (4) Persistent atrial fibrillation: (5) Chronic cerebral ischemia: Plan This patient had 2 tiny acute CVAs noted on MRI June 13 (1 on each hemisphere) likely consistent with small emboli. The patient has a history of persistent atrial fibrillation (and other cardiac issues) but also has CT angiography evidence of multiple vessel mild to moderate stenoses particularly intracranially. MRIs show extensive small vessel ischemic changes of an old nature and he has a longstanding history of hypertension, dyslipidemia, and diabetes. He is a former cigarette smoker decades ago. Therefore, he has multiple risk factors for both embolic and ischemic stroke. According to records he is only on apixaban and not an antipl atelet medication. The patient had acute confusion consistent with encephalopathy which had multiple factors including sepsis, hypercapnia, and possible closed head trauma with concussion. Certainly, he does not display any postconcussive syndrome symptoms today with no headache, dizziness, or vision issues. There was a question of subdural hematoma on CT June 13 but MRI did not show any evidence of subdural hematoma. Recommendations: 1. Continue apixaban 5 mg twice a day for embolus prevention 2. Consider adding antiplatelet medication for small vessel ischemic disease 3. Lipids have been lowered more than sufficiently. This patient would not be considered a high-dose statin candidate. Otherwise leave at current dose 4. Physical and Occupational Therapy increasing activity as able. 5. Control blood pressure as you are doing Overall, I spent a total of 120 minutes with this case including review of records, review of CT and MRI films, direct evaluation the patient at bedside, and discussion of the case with the patient and RN at bedside, Dr. Winter radiology, and Franca Prasad including differential diagnosis and treatment options. Admission and Anticipated Discharge Date Admission Date: June 06, 2024 Subjective Patient was tired/sleepy this morning. Nursing reports that earlier in the morning he was more awake oriented and following commands doing fairly well. he does have a history of fluctuating Results & Data Vital Signs (Past 12 Hours) Vital Signs Temp Pulse Resp BP Pulse Ox Pulse Ox O2 Del Method 06/16/24 07:40 Room Air 06/16/24 07:23 36.5 C 72 18 136/73 97 Room Air 06/16/24 02:10 98 O2 Del Method 06/16/24 07:40 06/16/24 07:23 06/16/24 02:10 Room Air PG Care Time/CCT Total # of Minutes Spent Total Time Spent with Patient: Total time spent is greater than 50% in coordination of care (as documented) at patient's floor/unit and/or counseling patient: Coding Diagnoses Acute CVA (cerebrovascular accident) I63.9 Acute metabolic encephalopathy G93.41 Hypertension I10 Persistent atrial fibrillation I48.19 Chronic cerebral ischemia I67.82
[2024-06-16 14:40] VITALS: BP 144/87; PULSE 78
--- NOTE | 2024-06-16 18:13 | Discharge Summary ---
Discharge Summary Date of Service June 16, 2024 Principal Dx & Hospital Course #1 = Principal Diagnosis (1) Sepsis: 88 y/o man admitted with sepsis acute encephalopathy and pneumonia, right groin cellulitis. sepsis 2nd to pneumonia +/- right groin cellulitis. resolved with antibiotics. lyme testing negative blood cx's from admission + for coag neg staph -- likely contaminant repeat blood cx's negative completed 7 days doxycycline and pip-tazo/omnicef (2) Acute metabolic encephalopathy: was severe, present on admission and had severe sundowning earlier the hospitalization. Mixed delirium. 2nd to sepsis, hypercapnia initial MRI Brain (06/06) negative for acute stroke There was a question of subdural hematoma on CT June 13 but MRI did not show any evidence of subdural hematoma. continue melatonin definitely improved though remains more confused than baseline (3) Stroke: mental status initially improved with IV fluids and antibiotics then later noted to be somnolent/poorly arousable AM of 06/13 (following zyprexa at pm and days of poor sleep). Code stroke called, had repeat brain MRI which showed two tiny acute CVAs new since MRI earlier same admission. Soon after the code stroke he was awake and alert without focal deficits. CTA without LVO, TTE without thrombus. He has extensive cerebrovascular disease on imaging as well as atrial fibrillation. The infarcts appear embolic and he did miss some doses of DOAC last week. He is also at risk for ischemic CVA and may benefit from antiplatelet. -neurologist consulted -continue DOAC, added ASA 81 mg -continue current statin -continue antihypertensives -PT/OT recommend rehab discharged to [facility] -I updated his in person 06/14, 06/16 (4) Atrial fibrillation with rapid ventricular response: RVR resolved rates controlled nicely with metoprolol tartrate 75mg BID continue Eliquis 5mg BID (5) Acute non-ST elevation myocardial infarction (NSTEMI): seen by Dr Kunz from [facility] Cardiology felt to have myocardia demand ischemia / type 2 SD -- NOT an ACS or type 1 SD peak troponin 3322 cont statin cont Eliquis cont metoprolol ASA echo findings noted -- EF 45-50%, base to mid inferior, inferolateral, and lateral moderate hypokinesis which is new since last study 07/2022. small pericardial effusion without tamponade (6) Acute pericardial effusion: small repeat echo stable size, no tamponade (7) DM type 2 (diabetes mellitus, type 2): Hba1c 6.5% in late April 2024 DM diet loose novolog coverage BSGs ac/hs control has been very good while here (8) Positive blood culture: coag neg staph likely contaminant repeat blood cx's are negative (9) Hypercapnia: declining BIPAP for HS use & naps significant snoring noted while he sleeps outpatient sleep study advisable but doubt he would use bipap (10) CAD (coronary artery disease): h/o LAD stent see #2 above re: NSTEMI cont metoprolol cont statin ASA (11) Cellulitis: right groin localized trauma from his fall also likely contributing +/- tinea or diego MUCH improved finished antibiotics cont ketoconazole cream (12) Chronic systolic CHF (congestive heart failure): mild systolic dysfunction EF 45-50% 2nd to ischemic cardiomyopathy has some leg edema but remains compensated continue beta karla (13) Hypertension: poorly controlled earlier in the hospital stay pt reports his BPs are typically 160s or higher at home BP control improved on increased doses of antihypertensives Plan CKD-3 stable DVT ppx - on DOAC Dispo - referral made to [facility] Notes For Next Care Provider consider BMP in one week consider diuretic if LE edema does not continue to improve Admission HPI Per Admitting Provider The patient is an 88-year-old male with a past medical history including ambulatory dysfunction, history of CVA, persistent atrial fibrillation, chronic anticoagulation, presence of LAD MOIZ, hyperlipidemia, dysarthria, prostate cancer, hypertension, diabetes mellitus, and vitamin D deficiency. He was most recently admitted to [facility] from 04/28-04/29/2024 due to a fall associated ambulatory dysfunction. He has been undergoing physical therapy in the outpatient setting, and reportedly by his significant other was improving. She reported not having been able to contact him since Thursday evening, 2 days ago, and after she called neighbors to check on him, they found him lying on the floor in the bathroom. EMS then brought the patient to the emergency department. And he underwent a trauma evaluation. He was then referred for evaluation for admission to the [facility] hospitalist service Discharge Exam PHYSICAL EXAMINATION Last 24h vital signs reviewed, see documentation in flowsheet General: seen 8-9 am was sleepy but alert both before and after my visit HEENT:marci sclerae anicteric, moist MM Lungs: clear bilaterally, no rrw Heart: irregularly irregular, no murmurs. No JVD Abdomen: Soft, nontender, nondistended. Bowel sounds present. R groin erythema fading. no induration Extremities: Warm, dry, well-perfused. 2+ lower extremity edema improved Neuro: Ox self, but not to place or situation, follows commands, speech intact, face symmetric, marci, recycling technician equal, moves UE and LE equally Discharge Plan Discharge Items Patient Disposition: Transfer Snf Fac Reason For Visit: S/P FALL, A-FIB W/ RVR, DEHYDRA., RHABDO, ELEV TR Discharge Diagnosis: Sepsis due to pneumonia and groin cellulitis, Acute metabolic encephalopathy, Afib with RVR, acute stroke suspected embolic Activity: Per Instructions section Weightbearing: Full weightbearing Non-emergency contact: Primary Care Provider and Land Commissioner Call non-emergency contact if: you have any medication questions, your symptoms worsen and you have a fever Follow-up/Referrals: Don Yeager MD [Primary Care Provider] - Nader Don Jr, MD, [facility] [Physician] - Diet: Carb Consistent or DM2 Diet Texture: Easy to Chew Addtl Attending Provider Instructions: PT and OT evaluate and treat Diet controlled diabetes - monitor fasting blood glucose 2x a week and as needed Please consider check BMP in 1 week Monitor weight and edema, low dose diuretic if edema worsening/not impoving Schuedule follow up with Dr. Yeager and Dr. Don Pending Studies at Discharge: No Stand-Alone Forms: My [facility] Skilled Items Patient informed of condition?: Yes DNR: No Discharge Level of Care: Skilled Communicable Disease: No Discharge Prognosis: Improving Lines: None Urinary Catheter: No Medications and DC Order Prescriptions: New amlodipine [Norvasc] 5 mg Tablet 10 mg PO DAILY Qty: 0 0RF metoprolol succinate 25 mg tablet extended release 24 hr 75 mg PO BID Qty: 1 0RF melatonin 3 mg Tablet 3 mg PO HS Qty: 0 0RF Continued telmisartan 80 mg tablet 80 mg PO QAM Qty: 90 3RF Gemtesa 75 mg tablet 75 mg PO DAILY Qty: 90 4RF Eliquis 5 mg tablet 5 mg PO BID Qty: 180 3RF atorvastatin 20 mg tablet 20 mg PO DAILY Qty: 90 3RF vitamin [id number] acid 0.5-1 mg Tablet 1 tab PO DAILY Rx Instructions: Unable to verify OTC meds at this date/time. cholecalciferol (vitamin D3) [Vitamin D3] 125 mcg (5,000 unit) Tablet 125 mcg PO QPM Rx Instructions: Unable to verify OTC meds at this date/time. trospium 20 mg tablet 0 mg PO BID Rx Instructions: Per pharmacy they believe this has been discontinued for the patient, but unable to verify. Original Directions: 20mg by mouth twice daily Held sildenafil (pulm.hypertension) 20 mg tablet 20 mg PO ONCE PRN (Reason: sexual activity) Qty: 15 6RF Hold Instructions: Resume on 07/14/24. hold until health is back to baseline Rx Instructions: take 1-5 tablets as needed do not take more than 5 tablets in a 24 hour period Discontinued metoprolol tartrate 50 mg tablet 50 mg PO BID Qty: 180 3RF nystatin 100,000 unit/gram cream 1 applic topical BID Qty: 30 2RF nystatin 100,000 unit/gram powder 1 applic topical BID Qty: 60 0RF Discharge Orders: Discharge Order (Routine); Ordered 06/16/24 Ordered By: Franca Verduzco/Other Patient Handouts: Nutrition for Wound Healing Admission Data Admit Date/Time: 06/06/24 01:13 Attending Provider: Franca Powers Admit Provider: Wolfgang Dasilva Primary Care Provider: Don Yeager Other Providers: Gavin Hanna Clemons; Wolfgang Dasilva; Arron Schmitz; Sonido Berrios; Don Rosenberg; Armand Burks; Mario Frausto; Nader Don Jr; Moy Aguillon; Louise Larose; Coni Storm; Tony Kunz; Tony Contreras; Octavio Garcia; Pippa Pérez; Isaac Beltran; Opal Wahl; Armando Voss; Pipo Pérez; Piegari,Obi N; Tim,Clemente Other Interventions: Discharge Summary Assessment (RN) Last Done: 06/16/24 14:36 Hospital Stay Data Consultations 06/06/24 00:21 ED Decision to Admit Stat 06/06/24 10:55 Consult Cardiology Routine 06/13/24 13:45 Consult Neurology Routine Diagnostic Imagining Performed 06/05/24 21:46 CT abd pelvis IV con only Stat CT cervical spine wo con Stat CT chest diagnostic w con Stat CT facial bones wo con Stat CT head/brain wo con Stat 06/05/24 21:54 CT angio head w con Stat CT angio neck with con Stat 06/06/24 01:13 MRI Brain [MR brain wo con] Routine 06/13/24 06:04 CT head/brain wo con Stat 06/13/24 07:37 MR brain wo con Urgent Abdomen/Pelvis CT 06/05/24 21:46 Exam(s): CT ABDOMEN + PELVIS With Contrast IV Amt: 119ml EXAM: CT Abdomen and Pelvis With Intravenous Contrast CLINICAL HISTORY: Reason for exam: Trauma. TECHNIQUE: Axial computed tomography images of the abdomen and pelvis with intravenous contrast. Automated exposure control was utilized for the study. A dose lowering technique was utilized adhering to the principles of ALARA. CONTRAST: Patient received 119ml of IV contrast COMPARISON: None. FINDINGS: Liver: No injury. Fatty, with a large, peripheral calcified cyst measuring 4 x 4.3 x 3 cm. Gallbladder and bile ducts: No ductal dilation. Pancreas: No ductal dilation. Spleen: No laceration. Adrenals: Unremarkable. No mass. Kidneys and ureters: Bilateral cortical cysts, largest on the left measuring 1.5 cm. No injury. Stomach and bowel: No obstruction. Diverticulosis without diverticulitis. Intraperitoneal space: No free air or fluid. Bones/joints: No acute pelvic or vertebral fracture. Soft tissues: Mild dependent edema or cellulitis hips and proximal thigh posteriorly, possible contusion, given history. Vasculature: Ectasia and atherosclerosis of the aorta. No abdominal aortic aneurysm. Lymph nodes: No enlarged lymph nodes. Bladder: No injury. Reproductive: Multiple prostate seeds as. IMPRESSION: 1. Mild dependent edema or cellulitis hips and proximal thigh posteriorly, possible contusion, given history. 2. No pelvic/vertebral fracture, parenchymal laceration or hemoperitoneum. 3. Peripheral calcified hepatic cyst, renal cysts and diverticulosis incidentally noted. Electronically signed by: Damaris Miranda M.D. 06/06/24 00:[address] 06/05/24 21:46 Exam(s): CT C SPINE EXAM: CT Cervical Spine Without Intravenous Contrast CLINICAL HISTORY: Reason for exam: Trauma. TECHNIQUE: Axial computed tomography images of the cervical spine without intravenous contrast. CTDI is 26.77 mGy and DLP is 5422.38 mGy-cm. Automated exposure control was utilized for the study. A dose lowering technique was utilized adhering to the principles of ALARA. COMPARISON: No relevant prior studies available. FINDINGS: Vertebrae: No acute fracture or malalignment. Soft tissues: Unremarkable. IMPRESSION: No acute fracture or malalignment. Electronically signed by: Amrit Smith MD 06/05/24 23:[address] 06/05/24 21:46 Exam(s): CT CHEST With Contrast IV Amt: 119ml EXAM: CT Chest With Intravenous Contrast CLINICAL HISTORY: Reason for exam: Trauma. TECHNIQUE: Axial computed tomography images of the chest with intravenous contrast. Automated exposure control was utilized for the study. A dose lowering technique was utilized adhering to the principles of ALARA. CONTRAST: Patient received 119ml of IV contrast COMPARISON: None. FINDINGS: Lungs: Mild interstitial prominence particularly in the dependent lungs, nonspecific, possible compressive atelectasis, or infiltrate. No consolidation. Pulmonary arteries: Mild engorgement. Aorta: No thoracic aortic aneurysm. Pleural space: Mild bilateral pleural effusion. No pneumothorax. Heart: No cardiomegaly. Mild to moderate, intermittent pericardial effusion, maximum thickness posteriorly on the left measuring 12 mm. Bones/joints: No acute fracture. Soft tissues: Peripheral calcified hepatic cyst right upper quadrant. CT abdomen pelvis also done, dictated separately. Lymph nodes: No enlarged lymph nodes. IMPRESSION: 1. Cardiomegaly, vascular prominence, mild bilateral pleural effusions and infiltrates are nonspecific, cannot rule out CHF and/or pneumonia. 2. Mild to moderate PERICARDIAL effusion. 3. CT abdomen pelvis also done, dictated separately. Electronically signed by: Damaris Miranda M.D. 06/06/24 00:10 AM Chest X-Ray 06/05/24 21:46 XR chest 1V portable CLINICAL HISTORY: fall TECHNIQUE: Single frontal radiograph of the chest was obtained. Comparison: Comparison is made to chest radiograph 04/28/2024 FINDINGS: No lines and tubes are seen. Cardiomegaly is noted. The aortic arch is calcified. The lungs are clear. Small left pleural effusion is seen. IMPRESSION: Small left pleural effusion without acute abnormality. ACT 112: Negative or not required by law. Electronically signed by: Rc Hill M.D. 06/06/2024 6:[address] 06/05/24 21:46 Exam(s): CT FACIAL Without Contrast EXAM: CT Maxillofacial Without Intravenous Contrast CLINICAL HISTORY: Reason for exam: Trauma. TECHNIQUE: Axial computed tomography images of the face without intravenous contrast. CTDI is 26.77 mGy and DLP is 5422.38 mGy-cm. Automated exposure control was utilized for the study. A dose lowering technique was utilized adhering to the principles of ALARA. COMPARISON: No relevant prior studies available. FINDINGS: Bones/joints: No facial fracture. Soft tissues: Unremarkable. Orbits: Unremarkable. Sinuses: Mucosal thickening within ethmoid and right frontal sinuses. IMPRESSION: No facial fracture. Electronically signed by: Amrit Smith MD 06/05/24 23:[address] 06/05/24 21:46 Exam(s): CT HEAD Without Contrast EXAM: CT Head Without Intravenous Contrast CLINICAL HISTORY: Reason for exam: Trauma. TECHNIQUE: Axial computed tomography images of the head/brain without intravenous contrast. CTDI is 26.77 mGy and DLP is 5422.38 mGy-cm. Automated exposure control was utilized for the study. A dose lowering technique was utilized adhering to the principles of ALARA. COMPARISON: No relevant prior studies available. FINDINGS: Brain: No intracranial hemorrhage, mass-effect, or cerebral edema. Global parenchymal atrophy. Periventricular and subcortical low attenuation which is nonspecific but favored to represent chronic microvascular ischemic changes. Ventricles: Unremarkable. Bones/joints: Unremarkable. No fracture. Soft tissues: Unremarkable. Sinuses: No acute sinusitis. Mastoid air cells: Unremarkable as visualized. IMPRESSION: No acute intracranial abnormality. Electronically signed by: Amrit Smith MD 06/05/24 23:30 PM Head CTA 06/05/24 21:54 Exam(s): CTA HEAD With Contrast IV Amt: 119ml EXAM: CT Angiography Head With Intravenous Contrast CLINICAL HISTORY: Reason for exam: ams. TECHNIQUE: Axial computed tomographic angiography images of the head with intravenous contrast. CTDI is 26.77 mGy and DLP is 5422.38 mGy-cm. Automated exposure control was utilized for the study. A dose lowering technique was utilized adhering to the principles of ALARA. MIP reconstructed images were created and reviewed. Mild motion artifact. CONTRAST: Patient received 119ml of IV contrast COMPARISON: Head CT done earlier. FINDINGS: Right internal carotid artery: Patent. Right anterior cerebral artery: Patent. Right middle cerebral artery: Patent. Right posterior cerebral artery: Patent. Mild stenosis intermittently. Right vertebral artery: Patent. Left internal carotid artery: Patent. Left anterior cerebral artery: Patent. Left middle cerebral artery: Patent. Left posterior cerebral artery: Patent. Mild intermittent stenosis. Left vertebral artery: Patent. Basilar artery: Patent. Other: Atherosclerosis bilateral cavernous ICA and V4 vertebral artery, with moderate, 60-70% stenosis. Diffuse scalp edema, stable, etiology not ascertained. IMPRESSION: 1. Atherosclerosis and moderate stenosis bilateral ICA and vertebral arteries intracranially. 2. Mild, intermittent stenosis bilateral LEGAL ADVISOR. 3. No aneurysm or large vessel occlusion. Electronically signed by: Damaris Miranda M.D. 06/06/24 00:07 AM Neck CTA 06/05/24 21:54 Exam(s): CTA NECK With Contrast IV Amt: 119ml EXAM: CT Angiography Neck With Intravenous Contrast CLINICAL HISTORY: Reason for exam: ams. TECHNIQUE: Routine carotid CT angiography protocol was performed with intravenous contrast. NASCET criteria using the distal ICAs for comparison were used for evaluation of stenoses. Automated exposure control was utilized for the study. A dose lowering technique was utilized adhering to the principles of ALARA. MIP reconstructed images were created and reviewed. Mild to moderate motion artifact, patient vocalizing during the exam. CONTRAST: Patient received 119ml of IV contrast COMPARISON: None. FINDINGS: Right common carotid artery: Patent. Right internal carotid artery: Patent. Right vertebral artery: Patent. Left common carotid artery: Patent. Left internal carotid artery: Patent. Left vertebral artery: Patent. Other: Dense atherosclerotic calcification bilateral carotid bifurcation, without significant ICA stenosis. Motion artifact limits evaluation. Severe 70-80 % right ECA stenosis. Pericardial effusion in the superior recess, CT chest also done, dictated separately. IMPRESSION: 1. No dissection, occlusion, or significant stenosis. 2. Severe right ECA stenosis. 3. Motion artifact limits evaluation. CAROTID STENOSIS REFERENCE USING NASCET CRITERIA: % ICA stenosis = (1 - narrowest ICA diameter/diameter of distal cervical ICA) x 100. Mild - <50% stenosis. Moderate - 50-69% stenosis. Severe - 70-94% stenosis. Near occlusion - 95-99% stenosis. Occluded - 100% stenosis. Electronically signed by: Damaris Miranda M.D. 06/06/24 00:10 AM Brain MRI 06/06/24 01:13 Exam(s): MRI HEAD Without Contrast EXAM: MR Head Without Intravenous Contrast CLINICAL HISTORY: Reason for exam: LOC, s/p fall. TECHNIQUE: Magnetic resonance images of the head/brain without intravenous contrast in multiple planes. COMPARISON: Prior head CT from June 05, 2024.. FINDINGS: Brain: Remote ischemic injury of the left capsule. Advanced nonspecific white matter changes. No mass. No hemorrhage. No acute infarct. The flow voids at the base of are intact. Ventricles: Moderate ventriculomegaly. Bones/joints: Unremarkable. No acute fracture. Sinuses: Chronic pansinusitis. No acute sinusitis. Mastoid air cells: Unremarkable as visualized. No mastoid effusion. Orbits: Bilateral lens replacements. IMPRESSION: No evidence of acute intracranial pathology. Electronically signed by: Diane Rosario MD 06/06/24 04:22 AM Femur X-Ray 06/06/24 11:53 XR femur RT 2V routine CLINICAL HISTORY: fall, R hip/groin ecchymosis TECHNIQUE: 2 radiographic views of the right femur were obtained. Comparison: Comparison is made to CT abdomen pelvis 06/05/2024 FINDINGS: There is no evidence of an acute fracture. Degenerative changes are seen in the hip and knee joints. Vascular calcifications are noted. Incidental note is made of prostate therapy beads. IMPRESSION: No evidence of acute bony injury. ACT 112: Negative or not required by law. Electronically signed by: Rc Hill M.D. 06/06/2024 12:44 PM Hip X-Ray 06/06/24 11:53 RIGHT HIP 2 VIEWS CLINICAL HISTORY: Fall. Right hip pain. FINDINGS: AP and frog-leg views of the right hip are correlated with pelvic x- ray dated 04/28/2024. The skeletal structures are osteopenic. There is no radiographic evidence of acute fracture involving the right hip or the visualized right hemipelvis. [id number] arthritic change and joint space narrowing is seen in the hip. The overlying soft tissues are normal as imaged. Atherosclerotic calcification is seen in the right femoral artery. Brachytherapy implants project over the prostate. A Muller catheter is in place. IMPRESSION: No acute bony abnormality is identified. Electronically signed by: Mitch Manjarrez M.D. 06/06/2024 1:18 PM Chest X-Ray 06/07/24 11:45 SINGLE VIEW CHEST CLINICAL HISTORY: Pleural effusions FINDINGS: An AP, portable, upright chest radiograph is compared to chest x-ray and chest CT dated 06/05/2024. The heart is enlarged noting atherosclerotic calcification of the thoracic aorta. There are left larger than right pleural effusions with dependent atelectasis. The pulmonary vasculature is noncongested. Chronic interstitial thickening is similar to previous. No pneumothorax is seen. The skeletal structures are osteopenic. The bony thorax is grossly intact. A large peripherally calcified structure in the liver is partially imaged. IMPRESSION: 1. Cardiomegaly without radiographic evidence of congestive failure. 2. Left larger than right pleural effusions with dependent atelectasis. ACT 112: Negative or not required by law. Electronically signed by: Mitch Manjarrez M.D. 06/07/2024 2:[address] 06/13/24 06:04 CT head/brain wo con CLINICAL HISTORY: r/o cva/hemorrhage Technique: Contiguous axial CT images of the head were acquired from the base of the skull to the vertex without intravenous contrast administration. Images were viewed in brain, subdural and bone windows. Automated dose lowering techniques and/or adjustment according to patient size were utilized for this exam. Comparison: Comparison is made to CT head 06/05/2024 Findings: Areas of decreased attenuation are present in the periventricular and subcortical white matter bilaterally consistent with small vessel ischemic disease. Generalized cerebral atrophy with commensurate enlargement of the ventricles, sulci, and cisterns is also present. There is no acute intracranial hemorrhage or evidence of acute territorial infarction. No shift of the midline structures, mass effect, or extra-axial abnormalities are shown. Atherosclerotic calcifications are present in the intracranial segments of the internal carotid arteries. Imaged portions of the paranasal sinuses and mastoid air cells are clear. The orbits appear normal. There are no acute fractures of the calvaria or scalp swelling. Impression: No acute intracranial hemorrhage, no evidence of acute territorial infarction or other acute intracranial disease process. ACT 112: Negative or not required by law. Electronically signed by: Rc Hill M.D. 06/13/2024 6:45 AM Brain MRI 06/13/24 07:37 MR brain wo con CLINICAL HISTORY: ongoing delirium, most recent head CT with ?SDH?? TECHNIQUE: Multiplanar and multisequence MR images of the brain were obtained without intravenous contrast. Comparison: Comparison is made to MRI brain 06/06/2024 CT head 03/13/2024 FINDINGS: Tiny focus of restricted diffusion is in the midline posterior left frontal lobe (series 5 image 19). A right parietal focus of restricted diffusion is likely artifactual. Foci of T2 and FLAIR hyperintensity are noted in the paraventricular areas consistent with chronic small vessel ischemic disease. Ex vacuo ventriculomegaly and sulcal enlargement is noted compatible with diffuse volume loss. No masses seen. Punctate lacunar infarcts primarily in the left basal ganglia. There is no mass effect or midline shift. There is no evidence of acute intraparenchymal hemorrhage. No extra axial fluid collections are seen. The corpus callosum, pituitary gland, and cerebellar tonsils appear grossly unremarkable. Flow voids of the major intracranial arterial vessels are identified. The imaged portions of the paranasal sinuses, mastoid air cells, and orbits are unremarkable. 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 No hemorrhagic transformation is seen. No evidence of subdural hemorrhage. ACT 112: Negative or not required by law. Electronically signed by: Rc Hill M.D. 06/13/2024 11:55 AM 06/13/24 06:11 06/14/24 06:49 Pending Results Patient Have Any Pending Studies at Discharge: No Discharge Instructions Given to Patient (Per Discharging Provider) PT and OT evaluate and treat Diet controlled diabetes - monitor fasting blood glucose 2x a week and as needed Please consider check BMP in 1 week Monitor weight and edema, low dose diuretic if edema worsening/not impoving Schuedule follow up with Dr. Yeager and Dr. Don Total Time Total Time Spent Total Time Spent (In Minutes): I personally spent: 40 minutes today on clinical care activities including: reviewing chart notes and vital signs discussion with farm or ranch animal caretaker examining and counseling the patient counseling the patient's family writing orders writing prescriptions, discharge instructions documentation Coding Level of Care Code 91708 INP/OBS DISCH >30 MIN Diagnoses Sepsis A41.9 Acute metabolic encephalopathy G93.41 Stroke I63.9 Atrial fibrillation with rapid ventricular response I48.91 Acute non-ST elevation myocardial infarction (NSTEMI) I21.4 Acute pericardial effusion I30.9 DM type 2 (diabetes mellitus, type 2) E11.9 Positive blood culture R78.81 Hypercapnia R06.89 CAD (coronary artery disease) I25.10 Cellulitis L03.90 Chronic systolic CHF (congestive heart failure) I50.22 Hypertension I10
== END 2024-06-16 15:09 | DRG 871 ==
LOC: ED 21:40 → SUATTDRO 06-06 01:13 → EDINP 06-06 01:13 → 2S 06-06 01:52 → 3W 06-12 17:25 → 2S 06-13 07:09 → 3W 06-15 21:43